=== PATIENT | female | born 1995 | race Caucasian/White ===

== ENCOUNTER 2017-11-17 01:55 | Outpatient (CLI) | payer MEDICAID ==
[2017-11-17 02:05] VITALS: BP 122/59
[2017-11-17 02:17] LABS: BILIRUBIN,URINE NEGATIVE (NEGATIVE); CLARITY,URINE CLEAR; COLOR,URINE YELLOW; GLUCOSE, URINE (UA) NEGATIVE (NEGATIVE); KETONES,URINE NEGATIVE (NEGATIVE); LEUKOCYTE ESTERASE ,URINE NEGATIVE (NEGATIVE); NITRITE,URINE NEGATIVE (NEGATIVE); PH,URINE 7 (5-9); PROTEIN,URINE NEGATIVE (NEGATIVE); UROBILINOGEN,URINE NORMAL (NORMAL)
[2017-11-17] MEDS ORDERED: ESCI5TAB PO (02:20)
[2017-11-17] MEDS ORDERED: MULT-228 PO (02:21)
[2017-11-17 02:32] LABS: BACTERIA,URINE NEGATIVE /HPF
[2017-11-17 02:43] LABS: AMPHETAMINE SCREEN, URINE NEGATIVE (NEGATIVE); BARBITURATE SCREEN URINE NEGATIVE (NEGATIVE); BENZODIAZEPINES SCREEN URINE NEGATIVE (NEGATIVE); CANNABINOID SCREEN, URINE POSITIVE (NEGATIVE); COCAINE SCREEN URINE NEGATIVE (NEGATIVE); METHADONE STAT NEGATIVE (NEGATIVE); METHAMPHETAMINE SCREEN URINE S NEGATIVE (NEGATIVE); OPIATE SCREEN URINE NEGATIVE (NEGATIVE); OXYCODONE STAT NEGATIVE (NEGATIVE); PROPOXYPHENE STAT NEGATIVE (NEGATIVE); TRICYCLIC ANTIDEPRESSANTS SCRE NEGATIVE (NEGATIVE)
--- NOTE | 2017-11-18 13:18 | Physician Query-Final Dx ---
BRIANNA OLIVIA 11/18/17 1317: Clinic Account Progress/Dx Physician Query: Please give a diagnosis and the weeks of gestation thank you Date of Service Nov 17, 2017 at 01:55 GIFTY KOVACS DO 12/08/17 1522: Clinic Account Progress/Dx DIAGNOSIS: Diagnosis 28 weeks contractions history of delivery BRIANNA OLIVIA Nov 18, 2017 13:17 GIFTY KOVACS DO Dec 08, 2017 15:22
== END 2017-11-17 03:10 ==
LOC: WSo 01:55 → LDRP 01:56 → WSo 03:10
PROVIDERS: ATTEND Obstetrics & Gynecology
DX: O60.03 Preterm labor without delivery, third trimester (principal); O09.213 Supervision of pregnancy with history of pre-term labor, third trimester; Z3A.28 28 weeks gestation of pregnancy
CPT/HCPCS: 80306; 81000; 99213

== ENCOUNTER 2017-12-01 20:17 | Outpatient (CLI) | payer MEDICAID ==
[~2017-12-01] VITALS: Ht 154.9 cm; Wt 58.9 kg
[~2017-12-01 20:17] MED LIST: ESCI5TAB PO; MULT-228 PO
[2017-12-01] MEDS ORDERED: D5 LR IV SOLUTION 1,000 ML IV ONE (20:45)
[2017-12-01 20:59] LABS: BASOPHILS % (AUTO) 0 % (0-10); EOSINOPHILS # (AUTO) 0.2 10^3/uL (0.0-0.3); EOSINOPHILS % (AUTO) 2 % (0-10); HEMATOCRIT 30 % (35-52); HEMOGLOBIN 10.7 G/DL (11.5-16.0); LYMPHOCYTES # (AUTO) 2.7 X 10^3 (1.0-4.0); LYMPHOCYTES % (AUTO) 23 % (12-44); MEAN CORPUSCULAR HEMOGLOBIN 31 PG (25-34); MEAN CORPUSCULAR HGB CONC 35 G/DL (32-36); MEAN CORPUSCULAR VOLUME 88 FL (80-99); MEAN PLATELET VOLUME 8.9 FL (7.4-10.4); MONOCYTES # (AUTO) 0.9 X 10^3 (0.0-1.0); MONOCYTES % (AUTO) 7 % (0-12); NEUTROPHILS # (AUTO) 8.3 X 10^3 (1.8-7.8); NEUTROPHILS % (AUTO) 68 % (42-75); PLATELET COUNT 307 10^3/uL (130-400); RED BLOOD COUNT 3.43 10^6/uL (4.35-5.85); RED CELL DISTRIBUTION WIDTH 13.3 % (10.0-14.5); WHITE BLOOD COUNT 12.1 10^3/uL (4.3-11.0)
[2017-12-01 21:00] VITALS: BP 117/54
[2017-12-01 21:15] LABS: BILIRUBIN,URINE NEGATIVE (NEGATIVE); CLARITY,URINE CLEAR; COLOR,URINE YELLOW; GLUCOSE, URINE (UA) NEGATIVE (NEGATIVE); KETONES,URINE NEGATIVE (NEGATIVE); LEUKOCYTE ESTERASE ,URINE NEGATIVE (NEGATIVE); NITRITE,URINE NEGATIVE (NEGATIVE); PH,URINE 7 (5-9); PROTEIN,URINE NEGATIVE (NEGATIVE); UROBILINOGEN,URINE NORMAL (NORMAL)
[2017-12-01 21:28] LABS: AMPHETAMINE SCREEN, URINE NEGATIVE (NEGATIVE); BARBITURATE SCREEN URINE NEGATIVE (NEGATIVE); BENZODIAZEPINES SCREEN URINE NEGATIVE (NEGATIVE); CANNABINOID SCREEN, URINE POSITIVE (NEGATIVE); COCAINE SCREEN URINE NEGATIVE (NEGATIVE); METHADONE STAT NEGATIVE (NEGATIVE); METHAMPHETAMINE SCREEN URINE S NEGATIVE (NEGATIVE); OPIATE SCREEN URINE NEGATIVE (NEGATIVE); OXYCODONE STAT NEGATIVE (NEGATIVE); PROPOXYPHENE STAT NEGATIVE (NEGATIVE); TRICYCLIC ANTIDEPRESSANTS SCRE NEGATIVE (NEGATIVE)
[2017-12-01 21:37] LABS: BACTERIA,URINE NEGATIVE /HPF
[2017-12-01] MEDS ORDERED: NITROFURANTOIN 100 MG (MACROBID) CAPSULE PO ONE ×2 (21:41→21:45)
--- NOTE | 2017-12-03 09:25 | Physician Query-Final Dx ---
BRIANNA OLIVIA 12/03/17 0925: Clinic Account Progress/Dx Physician Query: Please give a diagnosis and include the weeks of gestation thank you Date of Service Dec 01, 2017 at 20:17 DRE HENDRIX MD 12/03/17 1333: Clinic Account Progress/Dx DIAGNOSIS: Diagnosis False labor at 32 weeks gestation BRIANNA OLIVIA Dec 03, 2017 09:25 DRE HENDIRX MD Dec 03, 2017 13:33
== END 2017-12-01 22:40 | disposition home or self-care (01) ==
LOC: WSo 20:17 → LDRP 20:18 → WSo 22:40
PROVIDERS: ATTEND Obstetrics & Gynecology
DX: O47.03 False labor before 37 completed weeks of gestation, third trimester (principal); Z3A.32 32 weeks gestation of pregnancy
CPT/HCPCS: 36415; 80306; 81000; 85025; 87088; 96360; 96361; 99214

== ENCOUNTER 2017-12-17 16:17 | Outpatient (CLI) | payer MEDICAID ==
[~2017-12-17] VITALS: Ht 154.9 cm; Wt 59.0 kg
[2017-12-17 16:45] VITALS: BP 125/56
[2017-12-17 17:05] LABS: BILIRUBIN,URINE NEGATIVE (NEGATIVE); CLARITY,URINE CLEAR; COLOR,URINE YELLOW; GLUCOSE, URINE (UA) NEGATIVE (NEGATIVE); KETONES,URINE NEGATIVE (NEGATIVE); LEUKOCYTE ESTERASE ,URINE 1+ (NEGATIVE); NITRITE,URINE NEGATIVE (NEGATIVE); PH,URINE 7 (5-9); PROTEIN,URINE NEGATIVE (NEGATIVE); UROBILINOGEN,URINE NORMAL (NORMAL)
[2017-12-17 17:12] LABS: BACTERIA,URINE TRACE /HPF
[2017-12-17] MEDS ORDERED: D5 LR IV SOLUTION 1,000 ML IV ONE (17:15)
[2017-12-17 17:21] LABS: AMPHETAMINE SCREEN, URINE NEGATIVE (NEGATIVE); BARBITURATE SCREEN URINE NEGATIVE (NEGATIVE); BENZODIAZEPINES SCREEN URINE NEGATIVE (NEGATIVE); CANNABINOID SCREEN, URINE POSITIVE (NEGATIVE); COCAINE SCREEN URINE NEGATIVE (NEGATIVE); METHADONE STAT NEGATIVE (NEGATIVE); METHAMPHETAMINE SCREEN URINE S NEGATIVE (NEGATIVE); OPIATE SCREEN URINE NEGATIVE (NEGATIVE); OXYCODONE STAT NEGATIVE (NEGATIVE); PROPOXYPHENE STAT NEGATIVE (NEGATIVE); TRICYCLIC ANTIDEPRESSANTS SCRE NEGATIVE (NEGATIVE)
[2017-12-17 17:26] LABS: BASOPHILS % (AUTO) 0 % (0-10); EOSINOPHILS # (AUTO) 0.3 10^3/uL (0.0-0.3); EOSINOPHILS % (AUTO) 3 % (0-10); HEMATOCRIT 31 % (35-52); HEMOGLOBIN 10.6 G/DL (11.5-16.0); LYMPHOCYTES # (AUTO) 2.1 X 10^3 (1.0-4.0); LYMPHOCYTES % (AUTO) 21 % (12-44); MEAN CORPUSCULAR HEMOGLOBIN 29 PG (25-34); MEAN CORPUSCULAR HGB CONC 34 G/DL (32-36); MEAN CORPUSCULAR VOLUME 87 FL (80-99); MEAN PLATELET VOLUME 8.9 FL (7.4-10.4); MONOCYTES # (AUTO) 0.9 X 10^3 (0.0-1.0); MONOCYTES % (AUTO) 9 % (0-12); NEUTROPHILS # (AUTO) 6.9 X 10^3 (1.8-7.8); NEUTROPHILS % (AUTO) 68 % (42-75); PLATELET COUNT 310 10^3/uL (130-400); RED BLOOD COUNT 3.61 10^6/uL (4.35-5.85); RED CELL DISTRIBUTION WIDTH 13.6 % (10.0-14.5); WHITE BLOOD COUNT 10.2 10^3/uL (4.3-11.0)
[2017-12-17] MEDS ORDERED: FLU QUADRIvalent (5+ YOA) 2018-2019 (AFLURIA) 0.5 ML IM ONE (19:00)
[2017-12-17] MEDS ORDERED: HYDR250V7 IM (19:07)
== END 2017-12-17 19:18 | disposition home or self-care (01) ==
LOC: LDRP 16:17 → WSo 16:17
PROVIDERS: ATTEND Obstetrics & Gynecology
DX: O47.03 False labor before 37 completed weeks of gestation, third trimester (principal); O99.89 Other specified diseases and conditions complicating pregnancy, childbirth and the puerperium; R10.2 Pelvic and perineal pain; Z3A.33 33 weeks gestation of pregnancy
CPT/HCPCS: 36415; 80306; 81000; 85025; 87210; 96360; 96361; 99214

== ENCOUNTER 2017-12-31 23:35 | Outpatient (CLI) | payer MEDICAID ==
[~2017-12-31] VITALS: Ht 154.9 cm; Wt 59.9 kg
[~2017-12-31 23:35] MED LIST changes: +HYDR250V7 IM
[2017-12-31 23:55] VITALS: BP 111/59
--- NOTE | 2018-01-04 17:00 | Physician Query-Final Dx ---
[facility] 01/04/18 1700: Clinic Account Progress/Dx Physician Query: Please give diagnosis Date of Service Dec 31, 2017 at 23:35 GIFTY KOVACS DO 01/18/18 1406: Clinic Account Progress/Dx DIAGNOSIS: Diagnosis Left knee injury, fall at home third trimester [facility] Jan 04, 2018 17:00 GIFTY KOVACS DO Jan 18, 2018 14:06
[2018-01-08] MEDS ORDERED: DOCU100C37 PO (21:39)
[2018-01-08] MEDS ORDERED: IBUP-844 PO (21:39)
[2018-01-08] MEDS ORDERED: ACHD5005 PO (21:39)
== END 2018-01-01 00:40 | disposition home or self-care (01) ==
LOC: WSo 23:35 → LDRP 23:36 → WSo 01-01 00:40
PROVIDERS: ATTEND Obstetrics & Gynecology
DX: O9A.213 Injury, poisoning and certain other consequences of external causes complicating pregnancy, third trimester (principal); S89.92XA Unspecified injury of left lower leg, initial encounter; W19.XXXA Unspecified fall, initial encounter
CPT/HCPCS: 99212

== ENCOUNTER 2018-01-01 00:47 | Emergency (ER) | payer MEDICAID ==
[~2018-01-01] VITALS: Ht 154.9 cm; Wt 59.9 kg
--- NOTE | 2018-01-01 01:36 | ED Lower Extremity ---
General Chief Complaint: Lower Extremity Stated Complaint: LEFT KNEE INJURY-FALL/PT 8 MONTHS PREG Nursing Triage Note: left knee pain Nursing Sepsis Screen: No Definite Risk Source: patient History of Present Illness Date Seen by Provider: Jan 01, 2018 Time Seen by Provider: 01:10 Initial Comments PT ARRIVES VIA POV C/O LEFT KNEE PAIN STATES SHE STEPPED DOWN AND LOST HER BALANCE AND CAME DOWN ON HER LEFT KNEE, ONTO CONCRETE OCCURRED 12/30/17 PT DENIES ANY OTHER INJURIES OR AREAS OF PAIN NO PRIOR INJURY TO THIS KNEE NO PARESTHESIAS OR MOTOR DEFICITS HAS NOT TAKEN ANYTHING FOR PAIN STATES SHE "CAN'T WALK OR PUT ANY WEIGHT ON IT AND CAN'T STRAIGHTEN IT" PT STATES SHE IS " 8 MONTHS " ALSO STATES SHE IS "33 WEEKS" BUT GIVES EDC OF 01/15/18, DENIES ANY ABDOMINAL INJURY PT HAS ALREADY BEEN TO OB DEPT AND BABY IS FINE, ACCORDING TO PT. 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 KOVACS PT STATES SHE "JUST MOVED HERE FROM [place], [place]" Allergies and Home Medications Allergies Coded Allergies: No Known Drug Allergies (Unverified , 11/17/17) Home Medications Escitalopram Oxalate 5 Mg Tablet, 5 MG PO DAILY, (Reported) Multivitamin 1 Each Tab.chew, 2 EACH PO DAILY, (Reported) Patient Home Medication List Home Medication List Reviewed: Yes Review of Systems Constitutional: no symptoms reported Respiratory: no symptoms reported Cardiovascular: no symptoms reported Gastrointestinal: no symptoms reported Genitourinary: no symptoms reported : Yes Musculoskeletal: see HPI Skin: no symptoms reported Psychiatric/Neurological: No Symptoms Reported Past Xoyxukc-Sdgrzq-Aomlip Hx Patient Social History Alcohol Use: Past History Recreational Drug Use: No Smoking Status: Current Everyday Smoker (1/2 PPD) Type Used: Cigarettes (1/2 PPD) 2nd Hand Smoke Exposure: Yes Recent Foreign Travel: No Contact w/Someone Who Travel: No Recent Infectious Disease Expo: No Recent Hopitalizations: No Immunizations Up To Date Tetanus Booster (TDap): Unknown Seasonal Allergies Seasonal Allergies: Yes Past Medical History Surgeries: Yes Section Respiratory: Yes Asthma Cardiac: No Neurological: Yes Seizure Disorder : Yes Expected Date of Delivery: Jan 15, 2018 Genitourinary: No Gastrointestinal: No Musculoskeletal: No Endocrine: No HEENT: No Cancer: No Psychosocial: Yes Anxiety, PTSD, Bipolar, Depression Integumentary: No Blood Disorders: Yes (ANEMIA) Physical Exam Vital Signs Vital Signs - First Documented 01/01/18 01:05 Temp 98.1 Pulse 77 Resp 16 B/P (MAP) 96/60 (72) Pulse Ox 97 O2 Delivery Room Air Capillary Refill : Less Than 3 Seconds Height, Weight, BMI Height: 5'1.00" Weight: 132lbs. 0.0oz. [id number]; 24.9 BMI Method:Stated General Appearance: WD/WN, no apparent distress, other (REEKS OF CIGARETTES, MALODOROUS) Neck: non-tender Cardiovascular: normal peripheral pulses, regular rate, rhythm, no edema, no murmur Respiratory: chest non-tender, normal breath sounds Gastrointestinal: non tender, other (GRAVID UTERUS) Back: normal inspection, no CVA tenderness, no vertebral tenderness Hips: bilateral hip non-tender, bilateral hip normal inspection, bilateral hip normal range of motion, bilateral hip no evidence of injury Legs: bilateral leg non-tender, bilateral leg normal inspection, bilateral leg normal range of motion, bilateral leg no evidence of injury Knees: right knee non-tender, right knee normal inspection, right knee normal range of motion, right knee no evidence of injury; left knee other (NO EXTERNAL EVIDENCE OF TRAUMA, NO SWELLING OR ERYTHEMA OR ABRASIONS, DIFFUSE TENDERNESS TO ANTERIOR ASPECT OF LEFT KNEE. UNABLE TO ASSESS LIGAMENT LAXITY DUE TO PAIN . MARKEDLY EXAGGERATED PAIN RESPONSE--DIFFUSE TENDERNESS TO ENTIRE KNEE. ) Ankles: bilateral ankle non-tender, bilateral ankle normal inspection, bilateral ankle normal range of motion, bilateral ankle no evidence of injury Feet: bilateral foot non-tender, bilateral foot normal inspection, bilateral foot normal range of motion, bilateral foot no evidence of injury Neurologic/Tendon: normal sensation, normal motor functions, normal tendon functions Neurologic/Psychiatric: controller repairer and tester II-XII nml as tested, no motor/sensory deficits, alert, normal mood/affect, oriented x 3 Skin: normal color, warm/dry, tattoos/piercings Procedures/Interventions Splinting and Joint Reduction : Oseas wrap: Yes Immobilizers: 19 inch Knee Progress/Results/Core Measures Results/Orders My Orders Orders - KAROLINE MALONEY DO Knee, Left, 3 Views (01/01/18 01:12) Oseas Bandage (01/01/18 01:45) Knee Immobilizer (01/01/18 01:45) Vital Signs/I&O 01/01/18 01:05 Temp 98.1 Pulse 77 Resp 16 B/P (MAP) 96/60 (72) Pulse Ox 97 O2 Delivery Room Air Blood Pressure Mean: 72 Diagnostic Imaging Comments XRAYS LEFT KNEE--NO ACUTE PROCESS, PENDING RADIOLOGIST REVIEW Reviewed: Reviewed by Me Departure Impression Primary Impression: Status post fall Additional Impressions: Contusion of left knee Third trimester Disposition: HOME, SELF-CARE Condition: Stable Departure-Patient Inst. Referrals: GIFTY KOVACS DO (PCP/Family) Primary Care Physician Patient Instructions: Contusion (DC), Knee Immobilizer (DC), Knee Sprain (DC), Preventing Falls Add. Discharge Instructions: OSEAS WRAP AND KNEE IMMOBILIZER NEEDED FOR COMFORT ICE TO AREA AT 20 MINUTE INTERVALS ELEVATE LEG MUCH POSSIBLE TYLENOL NEEDED FOR PAIN FOLLOW UP WITH YOUR DR IN 1 WEEK IF NO BETTER All discharge instructions reviewed with patient and/or family. Voiced understanding. KAROLINE MALONEY DO Jan 01, 2018 01:36
[2018-01-01 02:15] VITALS: BP 96/60
--- NOTE | 2018-01-01 06:17 | Diagnostic Imaging Report ---
Indication: Fall with left knee pain. Comparison: None. Discussion: Three views of the left knee were obtained. No acute fracture, dislocation, or other osseous abnormality identified. No significant degenerative disease. Alignment is anatomic. Soft tissues are unremarkable. No effusion. Impression: 1. Negative left knee. Dictated by: Dictated on workstation # [id number]
== END 2018-01-01 02:17 | disposition home or self-care (01) ==
LOC: EDUNIT# 00:47 → ER 00:49
DX: O9A.213 Injury, poisoning and certain other consequences of external causes complicating pregnancy, third trimester (principal); S80.02XA Contusion of left knee, initial encounter; O99.513 Diseases of the respiratory system complicating pregnancy, third trimester; J45.909 Unspecified asthma, uncomplicated; O99.353 Diseases of the nervous system complicating pregnancy, third trimester; G40.909 Epilepsy, unspecified, not intractable, without status epilepticus; O99.343 Other mental disorders complicating pregnancy, third trimester; F41.9 Anxiety disorder, unspecified; F31.9 Bipolar disorder, unspecified; F43.10 Post-traumatic stress disorder, unspecified; O99.013 Anemia complicating pregnancy, third trimester; D64.9 Anemia, unspecified; O99.333 Smoking (tobacco) complicating pregnancy, third trimester; F17.210 Nicotine dependence, cigarettes, uncomplicated; Z98.890 Other specified postprocedural states; W10.9XXA Fall (on) (from) unspecified stairs and steps, initial encounter
CPT/HCPCS: 73562

== ENCOUNTER 2018-01-05 01:45 | Emergency (ER) | payer MEDICAID ==
[~2018-01-05] VITALS: Ht 154.9 cm; Wt 59.9 kg
--- NOTE | 2018-01-05 02:26 | ED Lower Extremity ---
General Chief Complaint: Lower Extremity Stated Complaint: L LEG SWELLING Source: patient, family Exam Limitations: no limitations History of Present Illness Date Seen by Provider: Jan 05, 2018 Time Seen by Provider: 02:11 Initial Comments Patient presents to the ER by private conveyance with her significant other and mother and chief complaint that 6 days ago she had a fall presented to the ER 5 days ago had x-rays done that demonstrated there is no fracture but they thought she had a sprain of her knee so put her on crutches and a knee immobilizer for a week in follow-up on the first, tomorrow with Dr. Kovacs her OB doctor. Her EDC is the end of January putting her at about 36 weeks. She claims she's had pain and swelling in her knee and had a small fall yesterday and reinjury of the same knee. She's never had any injury or surgery to this knee before. She claims she's had swelling upwards of 3 times the size just 2 hours prior to arrival. She's having excruciating pain. She's used Tylenol with her last dose being at 1700 yesterday. She's not using any topical creams, ice or heat. Allergies and Home Medications Allergies Coded Allergies: No Known Drug Allergies (Unverified , 11/17/17) Home Medications Escitalopram Oxalate 5 Mg Tablet, 5 MG PO DAILY, (Reported) Multivitamin 1 Each Tab.chew, 2 EACH PO DAILY, (Reported) Patient Home Medication List Home Medication List Reviewed: Yes Review of Systems Constitutional: No chills, No diaphoresis EENTM: No hearing loss, No ear pain Respiratory: No cough, No short of breath Cardiovascular: No chest pain, No palpitations Gastrointestinal: No abdominal pain, No constipation, No diarrhea Past Sfbgrsd-Hwcmob-Cnjllb Hx Patient Social History Alcohol Use: Denies Use Recreational Drug Use: No Type Used: Cigarettes 2nd Hand Smoke Exposure: Yes Recent Foreign Travel: No Contact w/Someone Who Travel: No Recent Hopitalizations: No Immunizations Up To Date Tetanus Booster (TDap): Unknown Seasonal Allergies Seasonal Allergies: Yes Past Medical History Surgeries: Yes Section Respiratory: Yes Asthma Cardiac: No Neurological: Yes Seizure Disorder Genitourinary: No Gastrointestinal: No Musculoskeletal: No Endocrine: No HEENT: No Cancer: No Psychosocial: Yes Anxiety, PTSD, Bipolar, Depression Integumentary: No Blood Disorders: Yes (ANEMIA) Physical Exam Vital Signs Vital Signs - First Documented 01/05/18 02:04 Temp 98.2 Pulse 99 Resp 17 B/P (MAP) 111/58 (75) Capillary Refill : Height, Weight, BMI Height: 5'1.00" Weight: 132lbs. 0.0oz. 59.279178au; 24.9 BMI Method:Stated General Appearance: WD/WN, no apparent distress HEENT: PERRL/EOMI, pharynx normal Neck: non-tender, normal inspection Cardiovascular: normal peripheral pulses, regular rate, rhythm Respiratory: no respiratory distress, no accessory muscle use Legs: bilateral leg non-tender, bilateral leg normal inspection, bilateral leg normal range of motion, bilateral leg no evidence of injury Knees: right knee non-tender; bilateral knee normal inspection; right knee normal range of motion, right knee no evidence of injury; left knee bone tenderness (anterior knee And tibial plateau or tender to palpation.), left knee swelling (scant swelling seen around the left knee without any significant joint effusion palpable) Ankles: bilateral ankle non-tender, bilateral ankle normal inspection, bilateral ankle normal range of motion, bilateral ankle no evidence of injury Neurologic/Tendon: normal sensation, normal motor functions, normal tendon functions, responds to pain Neurologic/Psychiatric: alert, normal mood/affect, oriented x 3 Skin: normal color, warm/dry Progress/Results/Core Measures Results/Orders My Orders Orders - LETTY HELM Acetaminophen Tablet (Tylenol Tablet) (01/05/18 02:30) Vital Signs/I&O 01/05/18 02:04 Temp 98.2 Pulse 99 Resp 17 B/P (MAP) 111/58 (75) Progress Progress Note : Time: 02:24 Progress Note Don't appreciate significant edema in either knee or leg. No effusion. She's having quite exquisite tenderness to palpation so a proper knee exam is difficult to do. We are going to refer her to orthopedic surgery for a clinical examination and about 1-2 weeks. Encourage her to use ice, rice therapy, Tylenol and follow-up. Departure Impression Primary Impression: Sprain of left knee Qualified Codes: S83.92XA - Sprain of unspecified site of left knee, initial encounter Disposition: 01 HOME, SELF-CARE Condition: Stable Departure-Patient Inst. Decision time for Depature: 02:30 Referrals: GIFTY KOVACS DO (PCP/Family) Primary Care Physician FRANCE LUZ MD Patient Instructions: Knee Sprain (DC) Add. Discharge Instructions: Rest your knee when possible above the level of your heart, elevated and use a compression dressing such as Oseas bandage, neoprene sleeve or the knee immobilizer for the first week. Apply ice for 20 minutes every 4 hours for the first 4 days. You can also use heat and creams such as icy hot or Biofreeze. Tylenol 1000 mg every 8 hours as needed for pain. Follow-up with your PATIENT REGISTRATION REPRESENTATIVE as well as call Drs. Luz at his clinic and request an appointment in 1 week or reevaluation of your knee. All discharge instructions reviewed with patient and/or family. Voiced understanding. Copy Copies To 1: FRANCE LUZ MD, TITUS J Jan 05, 2018 02:25
[2018-01-05] MEDS ORDERED: ACETAMINOPHEN 500 MG TAB (TYLENOL) PO ONE (02:30)
[2018-01-05 02:38] VITALS: BP 111/58
[2018-01-08] MEDS ORDERED: DOCU100C37 PO (21:39)
[2018-01-08] MEDS ORDERED: ACHD5005 PO (21:39)
[2018-01-08] MEDS ORDERED: IBUP-844 PO (21:39)
== END 2018-01-05 02:39 | disposition home or self-care (01) ==
LOC: EDUNIT# 01:45 → ER 01:47
DX: S83.92XA Sprain of unspecified site of left knee, initial encounter (principal); J45.909 Unspecified asthma, uncomplicated; G40.909 Epilepsy, unspecified, not intractable, without status epilepticus; F41.9 Anxiety disorder, unspecified; F31.9 Bipolar disorder, unspecified; F43.10 Post-traumatic stress disorder, unspecified; D64.9 Anemia, unspecified; Z77.22 Contact with and (suspected) exposure to environmental tobacco smoke (acute) (chronic); Z98.890 Other specified postprocedural states; W19.XXXA Unspecified fall, initial encounter
CPT/HCPCS: 99283

== ENCOUNTER 2018-01-08 02:37 | Inpatient (IN) | payer MEDICAID ==
[~2018-01-08] VITALS: Ht 154.9 cm; Wt 59.9 kg
[2018-01-08] VITALS (8 sets, daily range): BP systolic 101–127; BP diastolic 55–75
[2018-01-08] MEDS ORDERED: NS IV 1000 ML 1,000 ML ONE ×2 (02:52→05:14)
[2018-01-08] MEDS ORDERED: NS 1000 ML IV BAG IV ONE (03:00)
[2018-01-08 03:21] LABS: BASOPHILS % (AUTO) 0 % (0-10); EOSINOPHILS # (AUTO) 0.2 10^3/uL (0.0-0.3); EOSINOPHILS % (AUTO) 1 % (0-10); HEMATOCRIT 33 % (35-52); HEMOGLOBIN 11.1 G/DL (11.5-16.0); LYMPHOCYTES # (AUTO) 2.6 X 10^3 (1.0-4.0); LYMPHOCYTES % (AUTO) 19 % (12-44); MEAN CORPUSCULAR HEMOGLOBIN 29 PG (25-34); MEAN CORPUSCULAR HGB CONC 34 G/DL (32-36); MEAN CORPUSCULAR VOLUME 88 FL (80-99); MEAN PLATELET VOLUME 9.1 FL (7.4-10.4); MONOCYTES # (AUTO) 0.9 X 10^3 (0.0-1.0); MONOCYTES % (AUTO) 7 % (0-12); NEUTROPHILS # (AUTO) 9.9 X 10^3 (1.8-7.8); NEUTROPHILS % (AUTO) 73 % (42-75); PLATELET COUNT 293 10^3/uL (130-400); RED BLOOD COUNT 3.77 10^6/uL (4.35-5.85); RED CELL DISTRIBUTION WIDTH 14.9 % (10.0-14.5); WHITE BLOOD COUNT 13.6 10^3/uL (4.3-11.0)
[2018-01-08 03:57] LABS: BILIRUBIN,URINE NEGATIVE (NEGATIVE); CLARITY,URINE CLEAR; COLOR,URINE YELLOW; GLUCOSE, URINE (UA) NEGATIVE (NEGATIVE); KETONES,URINE NEGATIVE (NEGATIVE); LEUKOCYTE ESTERASE ,URINE 1+ (NEGATIVE); NITRITE,URINE NEGATIVE (NEGATIVE); PH,URINE 7 (5-9); PROTEIN,URINE NEGATIVE (NEGATIVE); UROBILINOGEN,URINE NORMAL (NORMAL)
[2018-01-08 04:05] LABS: BACTERIA,URINE TRACE /HPF; RBC,URINE 0-2 /HPF; WBC,URINE 0-2 /HPF
[2018-01-08 04:23] LABS: AMPHETAMINE SCREEN, URINE NEGATIVE (NEGATIVE); BARBITURATE SCREEN URINE NEGATIVE (NEGATIVE); BENZODIAZEPINES SCREEN URINE NEGATIVE (NEGATIVE); CANNABINOID SCREEN, URINE NEGATIVE (NEGATIVE); COCAINE SCREEN URINE NEGATIVE (NEGATIVE); METHADONE STAT NEGATIVE (NEGATIVE); METHAMPHETAMINE SCREEN URINE S NEGATIVE (NEGATIVE); OPIATE SCREEN URINE NEGATIVE (NEGATIVE); OXYCODONE STAT NEGATIVE (NEGATIVE); PROPOXYPHENE STAT NEGATIVE (NEGATIVE); TRICYCLIC ANTIDEPRESSANTS SCRE NEGATIVE (NEGATIVE)
[2018-01-08] MEDS ORDERED: FLU QUADRIvalent (5+ YOA) 2018-2019 (AFLURIA) 0.5 ML IM ONE (07:15)
[2018-01-08] MEDS ORDERED: LACTATED RINGERS 1,000 ML IV ONE ×2 (07:36→07:39)
[2018-01-08] MEDS ORDERED: CITRIC ACID/SOB CIT (BICITRA) 30 ML UDC ONE (07:38)
[2018-01-08] MEDS ORDERED: METOCLOPRAMIDE INJ 10 MG/2 ML (REGLAN) ONE (07:38)
[2018-01-08] MEDS ORDERED: ceFAZolin 1,000 MG/10 ML (ANCEF) VIAL ONE (07:39)
[2018-01-08] MEDS ORDERED: FAMOTIDINE 20MG/2ML IV (PEPCID) ONE (07:39)
[2018-01-08] MEDS ORDERED: NS (IVPB) 50 ML ONE (07:39)
--- NOTE | 2018-01-08 08:05 | History & Physical-OB ---
OB - Chief Complaint & HPI Date/Time Date of Admission: Date of Admission: Jan 08, 2018 at 7:48 am Date seen by a Provider: Jan 08, 2018 Time Seen by a Provider: 07:45 Chief Complaint/History OB-Reason for Admission/Chief: Vaginal bleeding, suspected abruption Hx : 3 Hx Para: 2 Expected Date of Delivery: Feb 03, 2018 Gestational Age in Weeks: 36 Gestational Age in Days: 2 Indication for : desires repeat Other reason for admission: Patient admitted for obs last night to R/O labor, however was not making change was jerel q 3-5 min so she was kept for observation. At 735 I was notifed she had began bleeding significantly from the vagina, on arrival to the hospital she was noted to have a contraction pattern q 1-2 min suspicious for an abruption, and in a significant amount of pain. No cervical change noted. Admission Nurse Assessment Rev: Yes History of Labs A neg Antibody neg RI RPR NR HBsAg nR HIV NR GC neg GBS pos Allergies and Home Medications Allergies Coded Allergies: No Known Drug Allergies (Unverified , 11/17/17) Home Medications Escitalopram Oxalate 5 Mg Tablet, 5 MG PO DAILY, (Reported) Multivitamin 1 Each Tab.chew, 2 EACH PO DAILY, (Reported) Patient Home Medication List Home Medication List Reviewed: Yes OB - History Hx of Present Care: Yes Ultrasounds: Normal mid trimester US Obstetrical Complications: None, Other (history of labor was on [place]) Medical Complications: None Obstetrical History Hx : 3 Hx Para: 2 Patient Past Medical History Anxiety/depression Social History/Family History Recent Infectious Disease Expo: No 2nd Hand Smoke Exposure: Yes Immunizations Tetanus Booster (TDap): Unknown OB - Admission Exam Physical Exam Vitals: Vital Signs 01/08/18 05:00 Temp 97.3 Pulse 72 Resp 18 B/P (MAP) 102/55 (71) O2 Delivery Room Air HEENT: NCAT Heart: Rhythm Normal Lungs: Clear Abdomen: Gravid Extremities: Normal Reflexes: Normal Cervical Dilatation: 2cm (s) Effacement: 50% Station: -2 Membranes: Intact (bleeding noted on vaginal exam) Heart Rate: 120's Accelerations: Accelerations Present Decelerations: No Decelerations Short Term Variability: Present Contractions on Admission: < 5 Minutes Apart Intensity: Firm Labs Laboratory Tests Test 01/08/18 03:10 01/08/18 03:50 Range/Units White Blood Count 13.6 H 4.3-11.0 10^3/uL Red Blood Count 3.77 L 4.35-5.85 10^6/uL Hemoglobin 11.1 L 11.5-16.0 G/DL Hematocrit 33 L 35-52 % Mean Corpuscular Volume 88 80-99 FL Mean Corpuscular Hemoglobin 29 25-34 PG Mean Corpuscular Hemoglobin Concent 34 32-36 G/DL Red Cell Distribution Width 14.9 H 10.0-14.5 % Platelet Count 293 130-400 10^3/uL Mean Platelet Volume 9.1 7.4-10.4 FL Neutrophils (%) (Auto) 73 42-75 % Lymphocytes (%) (Auto) 19 12-44 % Monocytes (%) (Auto) 7 0-12 % Eosinophils (%) (Auto) 1 0-10 % Basophils (%) (Auto) 0 0-10 % Neutrophils # (Auto) 9.9 H 1.8-7.8 X 10^3 Lymphocytes # (Auto) 2.6 1.0-4.0 X 10^3 Monocytes # (Auto) 0.9 0.0-1.0 X 10^3 Eosinophils # (Auto) 0.2 0.0-0.3 10^3/uL Basophils # (Auto) 0.0 0.0-0.1 10^3/uL Urine Color YELLOW Urine Clarity CLEAR Urine pH 7 5-9 Urine Specific [place] 1.010 L 1.016-1.022 Urine Protein NEGATIVE NEGATIVE Urine Glucose (UA) NEGATIVE NEGATIVE Urine Ketones NEGATIVE NEGATIVE Urine Nitrite NEGATIVE NEGATIVE Urine Bilirubin NEGATIVE NEGATIVE Urine Urobilinogen NORMAL NORMAL MG/DL Urine Leukocyte Esterase 1+ H NEGATIVE Urine RBC (Auto) 2+ H NEGATIVE Urine RBC 0-2 /HPF Urine WBC 0-2 /HPF Urine Squamous Epithelial Cells 5-10 /HPF Urine Crystals NONE /LPF Urine Bacteria TRACE /HPF Urine Casts NONE /LPF Urine Mucus NEGATIVE /LPF Urine Culture Indicated NO Urine Opiates Screen NEGATIVE NEGATIVE Urine Oxycodone Screen NEGATIVE NEGATIVE Urine Methadone Screen NEGATIVE NEGATIVE Urine Propoxyphene Screen NEGATIVE NEGATIVE Urine Barbiturates Screen NEGATIVE NEGATIVE Ur Tricyclic Antidepressants Screen NEGATIVE NEGATIVE Urine Phencyclidine Screen NEGATIVE NEGATIVE Urine Amphetamines Screen NEGATIVE NEGATIVE Urine Methamphetamines Screen NEGATIVE NEGATIVE Urine Benzodiazepines Screen NEGATIVE NEGATIVE Urine Cocaine Screen NEGATIVE NEGATIVE Urine Cannabinoids Screen NEGATIVE NEGATIVE OB - Assessment/Plan/Diagnosis Assessment Assessment: labor Admission Dx 22 yo @ 36 weeks labor Placental abruption with vaginal hemorrhage Previous x 2 Family history of ovarian ca History of labor Admission Status: Inpatient Order (span 2 midnights) Reason for Inpatient Admission: 22 yo @ 36 weeks labor Placental abruption with vaginal hemorrhage Previous x 2 Family history of ovarian ca History of labor Plan Plan: Section Other Plan RRS FRANCE LANE DO Jan 08, 2018 8:05 am
[2018-01-08] MEDS ORDERED: OXYTOCIN/NORMAL SALINE 500 ML IV SCH (08:06)
[2018-01-08] MEDS ORDERED: proPOfol 200 MG/20 ML (DIPRIVAN) VIAL IV ONE ×2 (08:07→08:32)
[2018-01-08] MEDS ORDERED: HYDROmorphone 2 MG/ML VIAL (DILAUDID) IV PRN (08:15)
[2018-01-08] MEDS ORDERED: ONDANSETRON 4 MG/2 ML (SDV) Z0FRAN IVP PRN ×2 (08:15→08:45)
[2018-01-08] MEDS ORDERED: TETANUS,DIPTH,PERTUSS P/F (BOOSTRIX) 0.5 ML VIAL IM SCH (08:15)
[2018-01-08] MEDS ORDERED: fentaNYL INJECTION 100 MCG/2 ML AMP ONE (08:18)
[2018-01-08] MEDS ORDERED: MIDAZOLAM 2 MG/2 ML (VERSED) VIAL ONE (08:19)
[2018-01-08] MEDS ORDERED: ONDANSETRON 4 MG/2 ML (SDV) Z0FRAN ONE (08:32)
[2018-01-08] MEDS ORDERED: METHYLERGONOVINE 0.2 MG/ML (METHERGINE) AMP ONE (08:32)
[2018-01-08] MEDS ORDERED: SUCCINYLCHOLINE INJ 100 MG/5 ML SYR ONE (08:32)
[2018-01-08] MEDS ORDERED: SEVOFLURANE (ULTANE) 15 ML INHAL SOLN ONE (08:32)
[2018-01-08] MEDS ORDERED: OXYTOCIN/NORMAL SALINE 500 ML IV ONE (08:33)
[2018-01-08] MEDS ORDERED: LIDOCAINE PF 2% 5 ML (XYLOCAINE) VIAL ONE (08:33)
[2018-01-08] MEDS ORDERED: HYDROmorphone 2 MG/ML VIAL (DILAUDID) IV ONE (08:45)
[2018-01-08] MEDS ORDERED: morphine INJ 10 MG/ML 1ML (SYR OR VIAL) IVP ONE (08:45)
[2018-01-08] MEDS ORDERED: MEPERIDINE (DEMEROL) INJ 50 MG/ML IVP ONE (08:45)
[2018-01-08] MEDS: KETOROLAC 30 MG/ML VIAL IVP SCH ×2 (09:19→15:24)
[2018-01-08] MEDS: HYDROcodone/APAP 5 MG/325 MG (LORTAB) TAB PO PRN (11:51)
[2018-01-08] MEDS ORDERED: CATHETER FLUSH 10 ML SYR IV SCH (14:00)
[2018-01-08] MEDS ORDERED: NS 1000 ML IV BAG IV SCH (14:00)
--- NOTE | 2018-01-08 17:11 | OPERATIVE REPORT ---
DATE OF SERVICE: 01/08/2018 PREOPERATIVE DIAGNOSES: 1. A 22-year-old G3, P2 at 36 weeks' gestation. 2. Profuse vaginal bleeding with placental abruption. 3. History of section. POSTOPERATIVE DIAGNOSES: 1. A 22-year-old G3, P2 at 36 weeks' gestation. 2. Profuse vaginal bleeding with placental abruption. 3. History of section. PROCEDURE PERFORMED: Repeat low transverse section with bilateral salpingectomy. SURGEON: Dylan Lane DO. ANESTHESIA: General. ESTIMATED BLOOD LOSS: 500 mL. URINE OUTPUT: 100 mL clear at the end of the procedure. FLUIDS: 1300 mL lactated Ringer solution. FINDINGS: A live male infant, weighing 5 pounds 11 ounces, Apgars of 8, 8 and 9. Grossly normal appearing uterus, bilateral fallopian tubes and ovaries. INDICATIONS FOR PROCEDURE: This is a 22-year-old female who was admitted overnight with some irregular contractions. She had a history of labor and delivery at 35 weeks with the previous . She received [place] throughout this inside her care with Dr. Greene, my partner. She had not gotten her last [place] injection last week at 35 weeks and had her GBS done, which was found to be positive. At that point, she was found to be 1-2 cm dilated. At her admission presentation, she was found to be 2 cm dilated; however, thick and high. The cervix was then reevaluated an hour and a half later which showed no change; however, she did continue to contract a little bit every 6-10 minutes, so she was admitted for observation. About 3-4 hours after observation was noted, she started bleeding vaginally and jerel pattern started to look like that of abruption pattern every 1-2 minutes. There was no resting tone noted in between contractions. At that point, I called for a stat . Risks were briefly reviewed with the patient in the preoperative area. Consent was obtained. The patient was taken to the operating room. We had planned to proceed with risk reducing salpingectomy as planned in her preoperative and care visits. Once in the operating room, the patient was placed on the table, prepped and draped in normal sterile fashion, placed in supine position with a leftward tilt. Timeout was performed, anesthesia was administered. Once I have the okay to begin by from Anesthesia, I made a Pfannenstiel skin incision to the preexisting scar using knife and carried down to the layer of fascia using Bovie cautery. Super aspect of the fascial incision was then grasped with Miguel Angel clamps and dissected off the underlying rectus muscle. Inferior aspect of fascial incision was then grasped with Miguel Angel clamps and dissected upward, dissected off the underlying rectus muscles. Rectus muscles were then extended superiorly and inferiorly using blunt traction. The peritoneum was entered and extended using blunt traction. Fuentes ring retractor was placed in the peritoneal incision, which offered excellent lateral sidewall retraction and then proceeded with making a low transverse incision into the vesicouterine peritoneum and bluntly dissected off the lower uterine segment. The lower uterine segment was found to be thinned out and I made an incision through this and rupture of membranes was performed in this motion. The uterine incision was then extended superiorly and laterally using bandage scissors. The was found in the vertex presentation. With gentle fundal pressure, 's head was delivered up to the incision and was bulb suctioned both nares and oropharynx. Anterior and posterior shoulder was delivered. Infant was then brought out to the operative field where the cord was doubly clamped and cut and was handed off to the nurses in attendance. Cord blood was collected, 3-vessel cord with intact placenta was delivered spontaneously. Thereafter, IV Pitocin was initiated to facilitate uterine contraction. Uterine fundus remains boggy with bimanual massage and 0.2 mg of Methergine was administered by my order from Anesthesia, which shows a good result in uterine tone. I then closed the uterine incision using #0 Vicryl suture in a running locked fashion, second layer of imbricating #0 Monocryl was placed. Excellent hemostasis was noted after doing this. I then placed the uterus in the upright position, so I can address the fallopian tubes and performed the following dissection bilaterally. Using the monopolar cautery, I transected the isthmic portion of the fallopian tube and take this down the mesosalpinx laterally amputating the fallopian tube away from its surrounding blood supply. It is amputated from the distal ampullary portion of the connection of the mesosalpinx. Once this was done bilaterally, there was no active bleeding noted from either one of those dissection planes. I placed the uterus back into the pelvis and copiously irrigated the pelvis using normal saline. No active bleeding noted from any of my dissection planes. At that point, I placed Interceed antiadhesive over a low transverse incision. The peritoneum was denuded, so I am unable to reapproximate it, so I reapproximated the rectus muscles using 3-0 Vicryl suture in interrupted fashion. The fascia was reapproximated using #0 Vicryl suture in running fashion. Subcutaneous tissue was reapproximated using 3-0 plain interrupted subcutaneous stitches. Skin was reapproximated using 4-0 Monocryl running subcuticular. Dermabond was applied to incision. A sterile dressing was adhesed with white tape. The patient tolerated the procedure well and sent to recovery in stable condition. Lap and sponge count was correct at the end of the procedure. Instrument count was correct as well. One gram of Ancef given preoperatively for infection prophylaxis. Job ID: [id number] DocumentID: [id number] Dictated Date: 01/08/2018 09:18:30 Director Project Management Date: 01/08/2018 17:10:59 Dictated By: DYLAN LANE DO
[2018-01-08] MEDS ORDERED: IBUPROFEN 600 MG (MOTRIN) TAB PO ONE (21:04)
--- NOTE | 2018-01-08 21:37 | Discharge Inst-Women's Service ---
Discharge Inst-Women's Serv Depart Medication/Instructions New, Converted or Re-Newed RX: RX on Chart Consults/Follow Up Additional Follow Up: Yes Orders/Referrals Dr. Upton in 7-[address] Greene in 6 weeks Activity Activity: Activity as Tolerated Driving Instructions: No Driving for 1 Week NO SMOKING: NO SMOKING Nothing Inside Vagina: No Douching, No Stollings, No Tampons Diet Discharge Diet: No Restrictions Symptoms to Report to : Bleeding Excessive, Pain Increased, Fever Over 101 Degrees F, Vaginal Bleeding Increase, Questions/Concerns For Any Problems or Questions: Contact Your Physician Skin/Wound Care Infection Signs and Symptoms: Increased Redness, Foul Odor of Wound, Increased Drainage, Skin Itchy or Has a Rash, Increased Swelling, Temperature Above 101 F Operative Area Clean and Dry: Keep Incision Clean/Dry Stitches/[place]/Dermabond: Dermabond, Care of Stitches Bathing Instructions: FRANCE Roman DO Jan 08, 2018 9:37 pm
[2018-01-08] MEDS ORDERED: DOCU100C37 PO (21:39)
[2018-01-08] MEDS ORDERED: ACHD5005 PO (21:39)
[2018-01-08] MEDS ORDERED: IBUP-844 PO (21:39)
[2018-01-09] MEDS: HYDROcodone/APAP 5 MG/325 MG (LORTAB) TAB PO PRN ×4 (00:56→21:47)
[2018-01-09] MEDS ORDERED: IBUPROFEN 600 MG (MOTRIN) TAB PO ONE (02:01)
[2018-01-09 03:02] VITALS: BP 89/47
[2018-01-09] MEDS: IBUPROFEN 600 MG (MOTRIN) TAB PO SCH ×3 (03:02→16:10)
[2018-01-09 05:49] LABS: BASOPHILS % (AUTO) 0 % (0-10); EOSINOPHILS # (AUTO) 0.2 10^3/uL (0.0-0.3); EOSINOPHILS % (AUTO) 1 % (0-10); HEMATOCRIT 29 % (35-52); HEMOGLOBIN 9.5 G/DL (11.5-16.0); LYMPHOCYTES # (AUTO) 2.6 X 10^3 (1.0-4.0); LYMPHOCYTES % (AUTO) 22 % (12-44); MEAN CORPUSCULAR HEMOGLOBIN 29 PG (25-34); MEAN CORPUSCULAR HGB CONC 33 G/DL (32-36); MEAN CORPUSCULAR VOLUME 88 FL (80-99); MEAN PLATELET VOLUME 9.1 FL (7.4-10.4); MONOCYTES # (AUTO) 0.9 X 10^3 (0.0-1.0); MONOCYTES % (AUTO) 8 % (0-12); NEUTROPHILS # (AUTO) 8.4 X 10^3 (1.8-7.8); NEUTROPHILS % (AUTO) 69 % (42-75); PLATELET COUNT 252 10^3/uL (130-400); RED BLOOD COUNT 3.32 10^6/uL (4.35-5.85); RED CELL DISTRIBUTION WIDTH 14.2 % (10.0-14.5); WHITE BLOOD COUNT 12.1 10^3/uL (4.3-11.0)
--- NOTE | 2018-01-09 08:04 | Postpartum Progress Note ---
Note Note Day # 1 Subjective: Patient is without complaints. Ambulating, voiding. Tolerating a regular diet without nausea or vomiting. Normal lochia. Pain is well controlled with oral pain medications. Objective: Vital Sign - Last 24 Hours 01/08/18 01/08/18 01/08/18 01/09/18 08:05 14:45 21:20 03:02 Temp 98.2 98.4 98.5 Pulse 80 64 80 64 Resp 18 18 18 18 B/P (MAP) 119/58 (78) 119/75 (90) 101/67 (78) 89/47 (61) Pulse Ox 97 97 96 O2 Delivery Room Air Room Air Room Air Room Air Intake and Output 01/08/18 01/08/18 01/09/18 15:00 23:00 07:00 Intake Total 200 ml 400 ml Output Total 250 ml 700 ml Balance -250 ml -500 ml 400 ml Physical Exam: General - Alert and oriented, no apparent distress Abdomen - Soft, appropriately tender to palpation, non-distended, fundus firm at umbilicus Extremities - no edema, negative Boy's bilaterally Incision- c/d/i Assessment: POD 1 RLTCS labor Acute blood loss anemia Plan: Routine care. Encourage breast feeding. Encourage ambulation. Ferrous sulfate supplementation. Plan for discharge tomorrow Vitals - Labs Vital Signs - I&O Vital Signs Date Time Temp Pulse Resp B/P (MAP) Pulse Ox O2 Delivery O2 Flow Rate FiO2 01/09/18 03:02 98.5 64 18 89/47 (61) 96 Room Air 01/08/18 21:20 98.4 80 18 101/67 (78) 97 Room Air 01/08/18 14:45 98.2 64 18 119/75 (90) 97 Room Air 01/08/18 08:05 80 18 119/58 (78) Room Air I & O 01/09/18 07:00 Intake Total 600 ml Output Total 950 ml Balance -350 ml Labs Laboratory Tests 01/09/18 05:25: White Blood Count 12.1H, Red Blood Count 3.32L, Hemoglobin 9.5L, Hematocrit 29L , Mean Corpuscular Volume 88, Mean Corpuscular Hemoglobin 29, Mean Corpuscular Hemoglobin Concent 33, Red Cell Distribution Width 14.2, Platelet Count 252, Mean Platelet Volume 9.1, Neutrophils (%) (Auto) 69, Lymphocytes (%) (Auto) 22, Monocytes (%) (Auto) 8, Eosinophils (%) (Auto) 1, Basophils (%) (Auto) 0, Neutrophils # (Auto) 8.4H, Lymphocytes # (Auto) 2.6, Monocytes # (Auto) 0.9, Eosinophils # (Auto) 0.2, Basophils # (Auto) 0.[address] DO Jan 09, 2018 08:04
[2018-01-09 09:17] VITALS: BP 117/58
--- NOTE | 2018-01-09 11:49 | Anesthesia-General Post-Op ---
General Patient Condition Mental Status/LOC: Same as Preop Cardiovascular: Satisfactory Nausea/Vomiting: Absent Respiratory: Satisfactory Pain: Controlled Complications: Absent Post Op Complications Complications None Follow Up Care/Instructions Patient Instructions None needed. Anesthesia/Patient Condition Patient Condition Patient is doing well, no complaints, stable vital signs, no apparent adverse anesthesia problems. No complications reported per nursing. MANOLO SINHA CRNA Jan 09, 2018 11:49
[2018-01-09 16:00] VITALS: BP 110/77
[2018-01-09] MEDS: DOCUSATE SODIUM 100 MG (COLACE) CAP PO SCH ×3 (20:08→21:47)
[2018-01-09 20:15] VITALS: BP 112/65
[2018-01-10 00:45] VITALS: BP 100/53
[2018-01-10] MEDS: IBUPROFEN 600 MG (MOTRIN) TAB PO SCH ×4 (00:45→17:58)
[2018-01-10 06:22] VITALS: BP 99/57
[2018-01-10] MEDS: DOCUSATE SODIUM 100 MG (COLACE) CAP PO SCH (08:37)
[2018-01-10] MEDS: HYDROcodone/APAP 5 MG/325 MG (LORTAB) TAB PO PRN ×3 (08:37→17:58)
--- NOTE | 2018-01-10 09:37 | Postpartum Progress Note ---
Note Note Day # 2 Subjective: Patient is without complaints. Ambulating, voiding. Tolerating a regular diet without nausea or vomiting. Normal lochia. Pain is well controlled with oral pain medications. Objective: Vital Sign - Last 24 Hours 01/09/18 01/09/18 01/10/18 01/10/18 16:00 20:15 00:45 06:22 Temp 98.1 98.4 98.3 98.1 Pulse 80 66 55 51 Resp 18 18 18 18 B/P (MAP) 110/77 (88) 112/65 (81) 100/53 (69) 99/57 (71) Pulse Ox 96 97 97 96 O2 Delivery Room Air Room Air Room Air Room Air Intake and Output 01/09/18 01/09/18 01/10/18 15:00 23:00 07:00 Intake Total 800 ml Balance 800 ml Physical Exam: General - Alert and oriented, no apparent distress Abdomen - Soft, appropriately tender to palpation, non-distended, fundus firm at umbilicus Extremities - no edema, negative Boy's bilaterally Incision- c/d/i Assessment: POD 2 RLTCS labor Acute blood loss anemia Plan: Routine care. Encourage breast feeding. Encourage ambulation. Ferrous sulfate supplementation. Plan for discharge today Vitals - Labs Vital Signs - I&O Vital Signs Date Time Temp Pulse Resp B/P (MAP) Pulse Ox O2 Delivery O2 Flow Rate FiO2 01/10/18 06:22 98.1 51 18 99/57 (71) 96 Room Air 01/10/18 00:45 98.3 55 18 100/53 (69) 97 Room Air 01/09/18 20:15 98.4 66 18 112/65 (81) 97 Room Air 01/09/18 16:00 98.1 80 18 110/77 (88) 96 Room Air I & O 01/10/18 07:00 Intake Total 800 ml Balance 800 ml Labs Microbiology 01/08/18 Urine Culture - Final, Complete NO GROWTH FRANCE LANE DO Jan 10, 2018 9:37 am
[2018-01-10 12:45] VITALS: BP 94/52
[2018-01-10 18:01] VITALS: BP 112/75
--- NOTE | 2018-01-12 11:47 | Physician Query-Final Dx ---
KALA FREEMAN 01/12/18 1147: Final Diagnosis Give Final Diagnosis Please give Final Diagnosis FRANCE LANE DO 01/12/18 1529: Final Diagnosis Give Final Diagnosis POD 2 RLTCS w/ RRS KALA FREEMAN Jan 12, 2018 11:[address] DO Jan 12, 2018 15:29
== END 2018-01-10 18:04 | disposition home or self-care (01) | DRG 783 ==
LOC: WSo 02:37 → LDRP 02:40 → WSo 07:42 → LDRP 07:48
PROVIDERS: ADMIT Obstetrics & Gynecology; ATTEND Obstetrics & Gynecology
PROC: 0UT70ZZ Resection of Bilateral Fallopian Tubes, Open Approach (ICD-10-PCS; 2018-01-08)
PROC: 10D00Z1 Extraction of Products of Conception, Low, Open Approach (ICD-10-PCS; principal; 2018-01-08 08:11)
DX: O45.93 Premature separation of placenta, unspecified, third trimester (principal); O60.14X0 Preterm labor third trimester with preterm delivery third trimester, not applicable or unspecified; O34.211 Maternal care for low transverse scar from previous cesarean delivery; O90.81 Anemia of the puerperium; D62 Acute posthemorrhagic anemia; O99.824 Streptococcus B carrier state complicating childbirth; O99.344 Other mental disorders complicating childbirth; F41.9 Anxiety disorder, unspecified; F32.9 Major depressive disorder, single episode, unspecified; Z3A.36 36 weeks gestation of pregnancy; Z37.0 Single live birth; Z80.41 Family history of malignant neoplasm of ovary
CPT/HCPCS: 36415; 80306; 81000; 85025; 86850; 86870; 86900; 86901; 87088; 88305; 88307; 94664; 99212

== ENCOUNTER 2018-11-27 15:51 | Emergency (ER) | payer MEDICAID, OTHER ==
[~2018-11-27] VITALS: Ht 157.5 cm; Wt 44.5 kg
[~2018-11-27 15:51] MED LIST changes: +ACHD5005 PO; +DOCU100C37 PO; +IBUP-844 PO
--- NOTE | 2018-11-27 16:00 | ED General ---
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 She complains of pain about the small finger on the left hand Allergies and Home Medications Allergies Coded Allergies: No Known Drug Allergies (Unverified , 11/17/17) Home Medications Docusate Sodium 100 Mg Capsule, 100 MG PO BID PRN for CONSTIPATION-1ST LINE Prescribed by: FRANCE LANE on 01/08/182138 Hydrocodone Bit/Acetaminophen 1 Tab Tab, 1 TAB PO Q4H PRN for PAIN-MODERATE Prescribed by: FRANCE LANE on 01/08/182138 Ibuprofen 600 Mg Tablet, 600 MG PO Q6H Prescribed by: FRANCE LANE on 01/08/182138 Ibuprofen 600 Mg Tablet, 600 MG PO Q6H PRN for PAIN-MILD Prescribed by: HANDY JOHNSON on 11/27/18 1619 Polymyxin B Sulf/Trimethoprim 10 Ml Drops, 1 DROP OP Q3H Prescribed by: HANDY JOHNSON on 11/27/18 1633 Patient Home Medication List Home Medication List Reviewed: Yes Review of Systems Review of Systems Constitutional: no symptoms reported Respiratory: no symptoms reported Cardiovascular: no symptoms reported Musculoskeletal: see HPI Skin: no symptoms reported Past Aiscicr-Awmieq-Udejcs Hx Patient Social History Type Used: Cigarettes 2nd Hand Smoke Exposure: Yes Recent Hopitalizations: No Immunizations Up To Date Tetanus Booster (TDap): Unknown Seasonal Allergies Seasonal Allergies: Yes Past Medical History Surgeries: Yes Section Respiratory: Yes Asthma Cardiac: No Neurological: Yes Seizure Disorder Genitourinary: No Gastrointestinal: No Musculoskeletal: No Endocrine: No HEENT: No Cancer: No Psychosocial: Yes Anxiety, PTSD, Bipolar, Depression Integumentary: No Blood Disorders: Yes (ANEMIA) Physical Exam Vital Signs Vital Signs - First Documented 11/27/18 16:04 Temp 37.3 Pulse 69 Resp 18 B/P (MAP) 116/47 (70) Pulse Ox 99 O2 Delivery Room Air Capillary Refill : Height, Weight, BMI Height: 5'1.00" Weight: 132lbs. 0.0oz. 59.774959rx; 24.9 BMI Method:Stated General Appearance: No Apparent Distress, WD/WN HEENT: PERRL/EOMI Neck: Full Range of Motion Respiratory: Lungs Clear Cardiovascular: Regular Rate, Rhythm, No Murmur Extremity: Normal Capillary Refill, Normal Inspection, Normal Range of Motion Skin: Normal Color, Warm/Dry Progress/Results/Core Measures Suspected Sepsis SIRS Temperature: Pulse: Respiratory Rate: Blood Pressure / Mean: Results/Orders My Orders Orders - HANDY JOHNSON DO Hand 3 View Left (11/27/18 16:02) Vital Signs/I&O 11/27/18 16:04 Temp 37.3 Pulse 69 Resp 18 B/P (MAP) 116/47 (70) Pulse Ox 99 O2 Delivery Room Air Capillary Refill : Progress Note : Time: 16:12 Progress Note Patient is seen and examined. Examination of the left small finger does not reveal any acute findings. No swelling or ecchymosis. No subungual hematoma. No nail avulsion. We'll get plain film imaging to further evaluate. Patient has full range of motion although with some minor discomfort. Capillary refill is less than 2 seconds. Sensation to light touch is intact. 16:35: X-ray results are reviewed. No acute displaced fracture although there may be a small area of cortical disruption at the base of the first metacarpal bone on the small finger. Radiology report pending. Nonetheless, would be very minor if present. Patient was placed in finger splint. She is discharged home with ibuprofen. Advised follow-up with primary care doctor as needed. There is a secondary complaint today that her eyes have been irritated intermittently. She is present with her daughter today who does have pink eye on exam. I provided mom with some antibiotic eyedrops to use empirically on herself and on her daughter for treatment pinkeye. Departure Impression Primary Impression: Contusion of hand Disposition: HOME, SELF-CARE Condition: Improved Departure-Patient Inst. Referrals: NO,LOCAL PHYSICIAN (PCP/Family) Primary Care Physician Scripts Polymyxin B Sulf/Trimethoprim (Polymyxin B-Tmp Eye Drops) 10 Ml Drops 1 DROP OP Q3H, #10 ML Prov: HANDY JOHNSON DO 11/27/18 Ibuprofen (Ibuprofen) 600 Mg Tablet 600 MG PO Q6H PRN for PAIN-MILD, #28 TAB Prov: HANDY JOHNSON DO 11/27/18 HANDY JOHNSON DO Nov 27, 2018 16:00
[2018-11-27] MEDS ORDERED: IBUP-1773 PO (16:19)
--- NOTE | 2018-11-27 16:26 | Diagnostic Imaging Report ---
INDICATION: Smashed hand in [employer] driv[employer] window. COMPARISON: None available. TECHNIQUE: Three radiographs of the left hand dated 11/27/2018. FINDINGS: No acute fracture or dislocation. No destructive osseous process. Joint spaces are well-maintained. No suspicious radiopaque foreign body. Carpal alignment is well maintained. IMPRESSION: No acute osseous abnormality. Dictated by: Dictated on workstation # [id number]
[2018-11-27 16:33] VITALS: BP 116/47
[2018-11-27] MEDS ORDERED: PLTR10OP OP (16:33)
== END 2018-11-27 16:36 | disposition home or self-care (01) ==
LOC: EDUNIT# 15:51 → ER FS 15:54
DX: S60.222A Contusion of left hand, initial encounter (principal); J45.909 Unspecified asthma, uncomplicated; F43.10 Post-traumatic stress disorder, unspecified; F31.9 Bipolar disorder, unspecified; F41.9 Anxiety disorder, unspecified; D64.9 Anemia, unspecified; G40.909 Epilepsy, unspecified, not intractable, without status epilepticus; Z77.22 Contact with and (suspected) exposure to environmental tobacco smoke (acute) (chronic); W23.1XXA Caught, crushed, jammed, or pinched between stationary objects, initial encounter
CPT/HCPCS: 29130; 73130

== ENCOUNTER 2018-12-04 09:43 | Emergency (ER) | payer OTHER ==
[~2018-12-04] VITALS: Ht 154 cm; Wt 43.0 kg
[~2018-12-04 09:43] MED LIST changes: +IBUP-1773 PO; +PLTR10OP OP
[2018-12-04] MEDS ORDERED: NAPROXEN 250 MG (NAPROSYN) TABLET PO STA (10:02)
--- NOTE | 2018-12-04 10:09 | ED Upper Extremity ---
General Chief Complaint: Upper Extremity Stated Complaint: L HAND PREV INJ/PAIN Nursing Triage Note: PT TO TRIAGE CO OF PAIN 5TH FINGER L HAND, WAS SMASHED IN [employer] ON 11/27/18. PT STATES HAS AN X-RAY AND HAS CHIP OUT OF 5TH FINGER. PT STATES HAS PAIN IN FINGER RATE8/10 Nursing Sepsis Screen: No Definite Risk Source: patient Exam Limitations: no limitations History of Present Illness Date Seen by Provider: Dec 04, 2018 Time Seen by Provider: 09:55 Initial Comments Here with report of pain to the left fifth finger. 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 Seen a few days ago for the same. Pain is persisting. X- ray at that time and questionable fracture by the ER physician but noted to be negative by radiology. She states pain is not controlled with Tylenol or ibuprofen so she has not been taking them. She has been using the splint and has continued to work. States the pain as per significant currently. Denies any reinjury of finger or hand. Onset: last week Severity: moderate Pain/Injury Location: left 5th finger Method of Injury: direct blow Modifying Factors: Improves With Immobilization; Worse With Movement Allergies and Home Medications Allergies Coded Allergies: No Known Drug Allergies (Unverified , 11/17/17) Home Medications No Active Prescriptions or Reported Meds Patient Home Medication List Home Medication List Reviewed: Yes Review of Systems Constitutional: see HPI; No chills, No fever Respiratory: no symptoms reported Cardiovascular: no symptoms reported Musculoskeletal: see HPI, joint pain, joint swelling (IP left finger fifth), muscle pain Skin: no symptoms reported Psychiatric/Neurological: No Symptoms Reported Past Mdhnmjl-Klpgtx-Eaecyh Hx Past Med/Social Hx: Reviewed Nursing Past Med/Soc Hx Patient Social History Alcohol Use: Denies Use Recreational Drug Use: Yes (POT) Smoking Status: Current Everyday Smoker Type Used: Cigarettes 2nd Hand Smoke Exposure: Yes Recent Foreign Travel: No Contact w/Someone Who Travel: No Recent Infectious Disease Expo: No Recent Hopitalizations: No Physical Abuse: No Sexual Abuse: No Immunizations Up To Date Tetanus Booster (TDap): Less than 5yrs Seasonal Allergies Seasonal Allergies: Yes Past Medical History Surgeries: Yes Section Respiratory: Yes Asthma Cardiac: No Neurological: Yes Seizure Disorder Last Menstrual Period: Nov 10, 2018 Genitourinary: No Gastrointestinal: No Musculoskeletal: No Endocrine: No HEENT: No Cancer: No Psychosocial: Yes Anxiety, PTSD, Bipolar, Depression Integumentary: No Blood Disorders: Yes (ANEMIA) Family Medical History Reviewed Nursing Family Hx Physical Exam Vital Signs Vital Signs - First Documented 12/04/18 09:48 Temp 37.0 Pulse 75 Resp 18 B/P (MAP) 115/71 (86) Pulse Ox 98 Capillary Refill : Less Than 3 Seconds Height, Weight, BMI Height: 5'1.00" Weight: 132lbs. 0.0oz. 59.439050gm; 18.00 BMI Method:Stated General Appearance: WD/WN, no apparent distress Cardiovascular: regular rate, rhythm, no murmur Respiratory: lungs clear, normal breath sounds Hand: Left, bone tenderness (left fifth finger from MCP to proximal phalanx just distal to IP joint.), limited ROM (pain limited to left fifth finger), stiffness, swelling (IP joint on the left fifth) Neurologic/Tendon: normal sensation, normal tendon functions Neurologic/Psychiatric: alert, oriented x 3 Skin: normal color, warm/dry; No ecchymosis Progress/Results/Core Measures Results/Orders My Orders Orders - ERIK ARREAGA MD Naproxen Tablet (Naprosyn Tablet) (12/04/18 10:02) Hand, Left, 3 Views (12/04/18 10:02) Vital Signs/I&O 12/04/18 09:48 Temp 37.0 Pulse 75 Resp 18 B/P (MAP) 115/71 (86) Pulse Ox 98 Blood Pressure Mean: 86 Progress Progress Note : Progress Note Seen and evaluated. Given the persistence of pain, we will go ahead and repeat x-ray of the hand on the left. I offered oral or IM medication and she prefers oral. Naprosyn 500 mg by mouth given. Monitor patient. 1110 doing a little bett er. No acute fracture. Patient reapplied or splint and Oseas wrap which I agree with. Diagnostic Imaging Diagonstic Imaging: Xray Plain Films/CT/US/NM/MRI: other Comments [facility] [place] NAME: DOMINGA HANDLEY [facility] REC#: [id number] PT STATUS: REG ER : 1995 PHYSICIAN: ERIK ARREAGA MD ADMIT DATE: 12/04/18/ER Draft Date of Exam:12/04/18 HAND, LEFT, 3 VIEWS Clinical indication: Patient with fifth finger left hand pain which was smashed in a drive thru window on 11/27/2018. Exam: X-ray of the left hand, 3 views. Comparison: X-ray of the left hand dated 11/27/2018. Findings: There is no acute fracture or dislocation. There is no significant bone or joint abnormality. The carpal bones and phalanges are unremarkable. Impression: There is no acute fracture or dislocation. Dictated on workstation # [id number] Dict: 12/04/18 1035 Trans: 12/04/18 1042 KARINA [id number] Interpreted by: EASTON GUIDO MD Electronically signed by: Departure Impression Primary Impression: Contusion of finger of left hand Qualified Codes: S60.052D - Contusion of left little finger without damage to nail, subsequent encounter Disposition: 01 HOME, SELF-CARE Condition: Stable Departure-Patient Inst. Decision time for Depature: 11:18 Referrals: NO,LOCAL PHYSICIAN (PCP/Family) Primary Care Physician Patient Instructions: Common Finger Injuries, Contusion (DC) Add. Discharge Instructions: All discharge instructions reviewed with patient and/or family. Voiced understanding. You may use the splint as needed for comfort over the next week or so. You may also take it out of the splint and move it seems to decrease swelling and stiffness. You may use Aleve or the generic naproxen one or 2 tablets every 12 hours as needed for swelling or pain. You may take acetaminophen regular strength tablet (325 mg) 2 tablets every 6 hours as needed for pain. Follow-up with your doctor this week for recheck and further evaluation. Return for worse pain, swelling, weakness, numbness or other concerns as needed. Scripts No Active Prescriptions or Reported Meds ERIK ARREAGA MD Dec 04, 2018 10:09
--- NOTE | 2018-12-04 10:43 | Diagnostic Imaging Report ---
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 Exam: X-ray of the left hand, 3 views. Comparison: X-ray of the left hand dated 11/27/2018. Findings: There is no acute fracture or dislocation. There is no significant bone or joint abnormality. The carpal bones and phalanges are unremarkable. Impression: There is no acute fracture or dislocation. Dictated by: Dictated on workstation # [id number]
[2018-12-04 11:28] VITALS: BP 128/75
== END 2018-12-04 11:28 | disposition home or self-care (01) ==
LOC: EDUNIT# 09:43 → ER 09:44
DX: S60.052D Contusion of left little finger without damage to nail, subsequent encounter (principal); J45.909 Unspecified asthma, uncomplicated; G40.909 Epilepsy, unspecified, not intractable, without status epilepticus; F41.9 Anxiety disorder, unspecified; F43.10 Post-traumatic stress disorder, unspecified; F31.9 Bipolar disorder, unspecified; D64.9 Anemia, unspecified; F17.210 Nicotine dependence, cigarettes, uncomplicated; W22.8XXD Striking against or struck by other objects, subsequent encounter
CPT/HCPCS: 73130

== ENCOUNTER 2018-12-14 11:08 | Emergency (ER) | payer SELFPAY ==
[~2018-12-14] VITALS: Ht 156 cm; Wt 45.8 kg
[2018-12-14] MEDS ORDERED: AZIT250T PO (11:43)
[2018-12-14] MEDS ORDERED: PRD20T PO (11:43)
[2018-12-14] MEDS ORDERED: GUAI-365 PO (11:43)
--- NOTE | 2018-12-14 11:43 | ED General ---
General Chief Complaint: Upper Extremity Stated Complaint: SINUS PAIN Nursing Triage Note: Patient c/o cold, sinus pressure, headache. She also reports that it hurts to take a deep breath. She states that she has been having these symptoms for the past 2 days. Nursing Sepsis Screen: No Definite Risk Source of Information: Patient Exam Limitations: No Limitations History of Present Illness Date Seen by Provider: Dec 14, 2018 Time Seen by Provider: 11:15 Initial Comments Patient is a 23-year-old female with history of asthma who presents with sore throat, body aches, nasal congestion, rhinorrhea sinus pain and tenderness. Symptoms began yesterday and worse today. Denies fever chills, nausea vomiting. No chest pain shortness of breath. Denies flank pain, urinary frequency urgency. Patient did call and work yesterday and again this morning. Patient is a current smoker. Timing/Duration: 24 Hours Severity: Moderate Modifying Factors: improves with Medication Associated Systoms: Cough, Malaise Allergies and Home Medications Allergies Coded Allergies: No Known Drug Allergies (Unverified , 11/17/17) Home Medications No Active Prescriptions or Reported Meds Patient Home Medication List Home Medication List Reviewed: Yes Review of Systems Review of Systems Constitutional: see HPI EENTM: see HPI Respiratory: see HPI Cardiovascular: see HPI Genitourinary: see HPI Musculoskeletal: see HPI Skin: see HPI Psychiatric/Neurological: See HPI Past Lcztbrs-Yrnnjq-Efnqrb Hx Past Med/Social Hx: Reviewed Nursing Past Med/Soc Hx Patient Social History Alcohol Use: Denies Use Recreational Drug Use: Yes Drug of Choice: marijuana Smoking Status: Current Everyday Smoker Type Used: Cigarettes 2nd Hand Smoke Exposure: Yes Recent Foreign Travel: No Contact w/Someone Who Travel: No Recent Infectious Disease Expo: No Recent Hopitalizations: No Physical Abuse: No Sexual Abuse: No Mistreated: No Fear: No Immunizations Up To Date Tetanus Booster (TDap): Less than 5yrs Seasonal Allergies Seasonal Allergies: Yes Past Medical History Surgeries: Yes Section Respiratory: Yes Asthma Cardiac: No Neurological: Yes Seizure Disorder Genitourinary: No Gastrointestinal: No Musculoskeletal: No Endocrine: No HEENT: No Cancer: No Psychosocial: Yes Anxiety, PTSD, Bipolar, Depression Integumentary: No Blood Disorders: Yes (ANEMIA) Physical Exam Vital Signs Vital Signs - First Documented 12/14/18 11:15 Temp 36.6 Pulse 73 Resp 16 B/P (MAP) 99/55 (70) Pulse Ox 96 O2 Delivery Room Air Capillary Refill : Less Than 3 Seconds Height, Weight, BMI Height: 5'1.00" Weight: 132lbs. 0.0oz. 59.362543vr; 18.00 BMI Method:Stated General Appearance: No Apparent Distress Eyes: Bilateral Eye Normal Inspection, Bilateral Eye PERRL, Bilateral Eye EOMI HEENT: PERRL/EOMI, TMs Normal, Pharynx Normal, Moist Mucous Membranes (just, rhinorrhea,), Other Neck: Full Range of Motion, Normal Inspection, Non Tender, Supple ( sinus pain, no tenderness) Respiratory: Chest Non Tender, Lungs Clear Cardiovascular: Regular Rate, Rhythm Gastrointestinal: Non Tender, Soft Back: Normal Inspection, No CVA Tenderness Extremity: Normal Capillary Refill, Normal Inspection Neurologic/Psychiatric: Alert, Oriented x3 Focused Exam Sepsis Stage: Ruled Out Progress/Results/Core Measures Suspected Sepsis Recent Fever Within 48 Hours: No Infection Criteria Present: Suspected New Infection New/Unexplained Altered Menta: No Sepsis Screen: No Definite Risk SIRS Temperature: Pulse: 73 Respiratory Rate: 16 Blood Pressure 99 /55 Mean: 70 Results/Orders Vital Signs/I&O 12/14/18 11:15 Temp 36.6 Pulse 73 Resp 16 B/P (MAP) 99/55 (70) Pulse Ox 96 O2 Delivery Room Air Capillary Refill : Less Than 3 Seconds Blood Pressure Mean: 70 Departure Communication (Admissions) Flulike syndrome. Will treat supportively with PCP follow-up. Return precautions reviewed. Impression Primary Impression: Flu-like symptoms Disposition: 01 HOME, SELF-CARE Condition: Stable Departure-Patient Inst. Referrals: NO,LOCAL PHYSICIAN (PCP/Family) Primary Care Physician Patient Instructions: VIRAL RESP ILLNESS-ADULT Add. Discharge Instructions: Please take newly prescribed medications, increase fluids and follow up with PCP in 2-3 days for reevaluation if symptoms persist. Use albuterol inhaler as needed for wheezing and shortness of breath. Return to the ED if new or worsening symptoms. All discharge instructions reviewed with patient and/or family. Voiced understanding. Scripts Azithromycin (Zithromax) 250 Mg Tablet 250 MG PO UD, #6 TAB TAKE 2 TABLETS TODAY, THEN TAKE 1 TABLET DAILY FOR 4 MORE DAYS Prov: BEULAH LYLE DO 12/14/18 Guaifenesin/Pseudoephedrne HCl (Mucinex D ER 1,200-120 mg Tab) 1 Each Tab.er.12h 1 EACH PO BID, #18 TAB Prov: BEULAH LYLE DO 12/14/18 Prednisone (Prednisone) 20 Mg Tab 40 MG PO DAILY, #6 TAB 0 Refills Prov: BEULAH LYLE DO 12/14/18 Work/School Note: Work Release Form Date Seen in the Emergency Department: Dec 14, 2018 Return to Work: Dec 18, 2018 Restrictions: No Restrictions BEULAH LYLE DO Dec 14, 2018 11:43
[2018-12-14 11:49] VITALS: BP 99/55
== END 2018-12-14 11:49 | disposition home or self-care (01) ==
LOC: EDUNIT# 11:08 → ER FS 11:12
DX: R09.89 Other specified symptoms and signs involving the circulatory and respiratory systems (principal); J45.909 Unspecified asthma, uncomplicated; G40.909 Epilepsy, unspecified, not intractable, without status epilepticus; F41.9 Anxiety disorder, unspecified; F43.10 Post-traumatic stress disorder, unspecified; F31.9 Bipolar disorder, unspecified; D64.9 Anemia, unspecified; F17.210 Nicotine dependence, cigarettes, uncomplicated
CPT/HCPCS: 99283

== ENCOUNTER 2019-01-27 23:10 | Emergency (ER) | payer SELFPAY ==
[~2019-01-27] VITALS: Ht 155 cm; Wt 46.3 kg
[~2019-01-27 23:10] MED LIST changes: +AZIT250T PO; +GUAI-365 PO; +PRD20T PO
--- NOTE | 2019-01-27 23:40 | ED Upper Extremity ---
General Chief Complaint: Upper Extremity Stated Complaint: RT HAND PAIN Nursing Triage Note: fall while skating, right hand/thumb pain. denies other injury. Nursing Sepsis Screen: No Definite Risk Source: patient History of Present Illness Date Seen by Provider: Jan 27, 2019 Time Seen by Provider: 23:28 Initial Comments PT ARRIVES VIA POV STATES SHE WAS AT THE SKATING RINK AND FELL ON OUTSTRETCHED RIGHT HAND C/O PAIN TO PALM OF HAND AT BASE OF THUMB NO PARESTHESIAS OR MOTOR DEFICITS OCCURRED AT 2245 HAS NOT TAKEN ANYTHING FOR PAIN NO PRIOR INJURY TO THIS HAND NO OTHER INJURIES FROM THE INCIDENT HAS NOT TAKEN ANYTHING FOR PAIN LMP 01/09/19. NORMAL. S/P BTL Allergies and Home Medications Allergies Coded Allergies: No Known Drug Allergies (Unverified , 11/17/17) Home Medications Meloxicam 15 Mg Tablet, 15 MG PO DAILY Prescribed by: KAROLINE MALONEY on 01/28/19 0000 Patient Home Medication List Home Medication List Reviewed: Yes Review of Systems Constitutional: no symptoms reported LMP: Jan 09, 2019 Control/STD Prophylaxis: Other (BTL) Musculoskeletal: see HPI Skin: no symptoms reported Psychiatric/Neurological: No Symptoms Reported Past Sbwrgpk-Ridzpj-Vbzggy Hx Patient Social History Alcohol Use: Rarely Uses (HX OF ABUSE/HEAVY USE) Recreational Drug Use: Yes (THC) Drug of Choice: cannibus Smoking Status: Current Everyday Smoker (1/2 PPD) Type Used: Cigarettes 2nd Hand Smoke Exposure: Yes Recent Foreign Travel: No Contact w/Someone Who Travel: No Recent Infectious Disease Expo: No Recent Hopitalizations: No Physical Abuse: No Sexual Abuse: No Mistreated: No Fear: No Immunizations Up To Date Tetanus Booster (TDap): Less than 5yrs Seasonal Allergies Seasonal Allergies: Yes Past Medical History Surgeries: Yes Section, Tubal Ligation Respiratory: Yes Asthma Cardiac: No Neurological: Yes Seizure Disorder : No Reproductive Disorders: No Female Reproductive Disorders: Denies 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 0.0oz. 59.797103jy; 19.00 BMI Method:Stated General Appearance: thin, other (VERY DRAMATIC, MARKEDLY EXAGGERATED PAIN RESPONSE) Shoulder: normal inspection Elbow/Forearm: normal inspection Wrist: Yes normal inspection Hand: Right (THENAR EMINENCE), bone tenderness, limited ROM, soft tissue tenderness, swelling Neurologic/Tendon: normal sensation, normal motor functions, normal tendon functions Neurologic/Psychiatric: no motor/sensory deficits, alert Skin: normal color, warm/dry, tattoos/piercings (MULTIPLE TATTOOS) Procedures/Interventions Splinting and Joint Reduction : Splints: Thumb/Wrist Spica Progress/Results/Core Measures Results/Orders My Orders Orders - KAROLINE MALONEY DO Hand, Right, 3 Views (01/27/19 23:27) Thumb Spika (01/28/19 00:01) Rx-Naproxen (Rx-Naprosyn) (01/28/19 00:01) Vital Signs/I&O Blood Pressure Mean: 84 POS Diagnostic Imaging Comments XRAYS RIGHT HAND--NO FX OR DISLOCATION, PENDING RADIOLOGIST REVIEW Reviewed: Reviewed by Me Departure Impression Primary Impression: Contusion of right hand Additional Impression: Sprain of right thumb Disposition: 01 HOME, SELF-CARE Condition: Stable Departure-Patient Inst. Referrals: NO,LOCAL PHYSICIAN (PCP) Primary Care Physician ABEBA SIMPSON MD Patient Instructions: Sprained Thumb (DC), Contusion (DC) Add. Discharge Instructions: WEAR SPLINT AT ALL TIMES ICE TO AREA AT 20 MINUTE INTERVALS FOLLOW UP WITH DR. SIMPSON NEXT WEEK FOR FURTHER CARE All discharge instructions reviewed with patient and/or family. Voiced understanding. Scripts Meloxicam (Mobic) 15 Mg Tablet 15 MG PO DAILY, #10 TAB Prov: KAROLINE MALONEY DO 01/28/19 KAROLINE MALONEY DO Jan 27, 2019 23:39 POS
[2019-01-28] MEDS ORDERED: MELO15TA14 PO
[2019-01-28] MEDS ORDERED: RX-NAPROXEN (NAPROSYN) 250 MG TAB PPK#4 PO STA (00:01)
[2019-01-28 00:08] VITALS: BP 110/71
--- NOTE | 2019-01-28 05:43 | Diagnostic Imaging Report ---
INDICATION: Hand pain and swelling. FINDINGS: Alignment of the right hand appears appropriate. There are no findings of joint dislocation. Distal radius and ulna are unremarkable. The carpals are normally aligned. There is no carpal fracture. Remainder of the hand also unremarkable. There is no focal soft tissue abnormality. IMPRESSION: Negative radiographs of the right hand. Dictated by: Dictated on workstation # [id number]
== END 2019-01-28 00:10 | disposition home or self-care (01) ==
LOC: EDUNIT# 23:10 → ER 23:13
DX: S63.601A Unspecified sprain of right thumb, initial encounter (principal); S60.221A Contusion of right hand, initial encounter; J45.909 Unspecified asthma, uncomplicated; G40.909 Epilepsy, unspecified, not intractable, without status epilepticus; F41.9 Anxiety disorder, unspecified; F43.10 Post-traumatic stress disorder, unspecified; F31.9 Bipolar disorder, unspecified; D64.9 Anemia, unspecified; F17.210 Nicotine dependence, cigarettes, uncomplicated; Z98.51 Tubal ligation status; V00.121A Fall from non-in-line roller-skates, initial encounter; Y92.331 Roller skating rink as the place of occurrence of the external cause
CPT/HCPCS: 73130

== ENCOUNTER 2019-04-02 07:06 | Emergency (ER) | payer SELFPAY ==
[~2019-04-02] VITALS: Ht 155 cm; Wt 45.8 kg
[~2019-04-02 07:06] MED LIST changes: +MELO15TA14 PO
--- NOTE | 2019-04-02 07:38 | ED GU-Female ---
General Chief Complaint: - Urinary Stated Complaint: ABD PAIN Nursing Triage Note: Started having burning with urination 1 week ago. The pain is now radiating up into abdomen and is currently rated at 5/10, but is made worse by urinating. Denies fevers, chills, or flank pain. Does have history of UTI's, but states this is not how her UTI's normally feel. Nursing Sepsis Screen: No Definite Risk History of Present Illness Date Seen by Provider: Apr 02, 2019 Time Seen by Provider: 07:20 Initial Comments 23-year-old female presents with dysuria for the past week. Patient states that her pain is now radiating into her flanks she has a pain rating of 5/10 she says is worse when she urinates she does not have any fevers she however does admit to a long history of UTIs and has had increased vaginal discharge over the past week. Patient is sexually active. Patient has given informed consent for diagnostic and therapeutic services. She denies a history of cardiac pulmonary renal or GI disease. She has more pain in her left lower quadrant. Patient denies . Timing/Duration: week Severity/Quality: moderate (with progressive worsening and increased discharge), burning, cramping, sharp Location: LLQ, suprapubic Radiation: LLQ, back Activities at Onset: physical activity, sexual activity Prior Genitourinary Problems: none Sexual Nelagoney History: multiple partners Modifying Factors: Improves With Breathing, Improves With Urinating Associated Symptoms: abdominal pain, lower back pain Allergies and Home Medications Allergies Coded Allergies: No Known Drug Allergies (Unverified , 11/17/17) Home Medications Meloxicam 15 Mg Tablet, 15 MG PO DAILY Prescribed by: KAROLINE MALONEY on 01/28/19 0000 Patient Home Medication List Home Medication List Reviewed: Yes Review of Systems Review of Systems Constitutional: malaise, weakness, other (dysuria) EENTM: no symptoms reported, other (missing teeth) Respiratory: no symptoms reported Cardiovascular: no symptoms reported Gastrointestinal: LLQ, abdominal pain (suprapubic and dysuria) Genitourinary: burning, discharge (increasing over the past week), dysuria, flank pain (left lower quadrant pain now radiating to the left flank) : No Musculoskeletal: back pain Skin: no symptoms reported Psychiatric/Neurological: Anxiety Endocrine: No Symptoms Reported Hematologic/Lymphatic: No Symptoms Reported Past Irwldba-Bdbtrn-Eipgej Hx Patient Social History Alcohol Use: Denies Use Recreational Drug Use: Yes Drug of Choice: marijuana Smoking Status: Current Everyday Smoker Type Used: Cigarettes 2nd Hand Smoke Exposure: Yes Recent Foreign Travel: No Contact w/Someone Who Travel: No Recent Infectious Disease Expo: No Recent Hopitalizations: No Physical Abuse: No Sexual Abuse: No Mistreated: No Fear: No Immunizations Up To Date Tetanus Booster (TDap): Less than 5yrs Seasonal Allergies Seasonal Allergies: Yes Past Medical History Surgeries: Yes Section, Tubal Ligation Respiratory: Yes Asthma Cardiac: No Neurological: Yes Seizure Disorder Reproductive Disorders: No Female 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 0.0oz. 59.486868pu; 19.00 BMI Method:Stated General Appearance: WD/WN, moderate distress (suprapubic pain and dysuria) HEENT: PERRL/EOMI (some missing teeth), normal ENT inspection, pharynx normal Neck: non-tender, full range of motion, supple, normal inspection Cardiovascular: regular rate, rhythm, no edema, no gallop, no JVD, no murmur Respiratory: chest non-tender, no respiratory distress, no accessory muscle use, rales (inspiratory rales anterior and posterior chest consistent with heavy smoking) Gastrointestinal: normal bowel sounds, soft, no organomegaly, no pulsatile mass, tenderness (in the suprapubic and left lower quadrant), other (pierced umbilicus does not appear infected) Back: normal inspection, CVA tenderness (L) (early mostly anterior and flank) Extremities: normal range of motion, non-tender, normal inspection, no pedal edema, no calf tenderness 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, no motor/sensory deficits, alert, normal mood/affect, oriented x 3 Skin: normal color, warm/dry Lymphatic: no adenopathy Progress/Results/Core Measures Suspected Sepsis Recent Fever Within 48 Hours: No Infection Criteria Present: None New/Unexplained Altered Menta: No Sepsis Screen: No Definite Risk SIRS Temperature: Pulse: 69 Respiratory Rate: 16 Laboratory Tests 04/02/19 07:30: White Blood Count 8.2 Blood Pressure 102 /62 Mean: 75 Laboratory Tests 04/02/19 07:30: Creatinine 0.79, Platelet Count 276, Total Bilirubin 0.2 Results/Orders Lab Results Laboratory Tests Test 04/02/19 07:11 04/02/19 07:30 Range/Units Urine Color PALE YELLOW Urine Clarity CLOUDY Urine pH 6.0 5-9 Urine Specific [place] 1.020 1.016-1.022 Urine Protein 1+ H NEGATIVE Urine Glucose (UA) NEGATIVE NEGATIVE Urine Ketones NEGATIVE NEGATIVE Urine Nitrite NEGATIVE NEGATIVE Urine Bilirubin NEGATIVE NEGATIVE Urine Urobilinogen 0.2 < = 1.0 MG/DL Urine Leukocyte Esterase 3+ H NEGATIVE Urine RBC (Auto) 2+ H NEGATIVE Urine RBC 5-10 H /HPF Urine WBC TNTC H /HPF Urine Squamous Epithelial Cells 0-2 /HPF Urine Crystals NONE /LPF Urine Bacteria TRACE /HPF Urine Casts NONE /LPF Urine Mucus NONE /LPF Urine Culture Indicated YES Urine Opiates Screen NEGATIVE NEGATIVE Urine Oxycodone Screen NEGATIVE NEGATIVE Urine Methadone Screen NEGATIVE NEGATIVE Urine Propoxyphene Screen NEGATIVE NEGATIVE Urine Barbiturates Screen NEGATIVE NEGATIVE Ur Tricyclic Antidepressants Screen NEGATIVE NEGATIVE Urine Phencyclidine Screen NEGATIVE NEGATIVE Urine Amphetamines Screen NEGATIVE NEGATIVE Urine Methamphetamines Screen NEGATIVE NEGATIVE Urine Benzodiazepines Screen NEGATIVE NEGATIVE Urine Cocaine Screen NEGATIVE NEGATIVE Urine Cannabinoids Screen POSITIVE H NEGATIVE White Blood Count 8.2 4.3-11.0 10^3/uL Red Blood Count 4.14 L 4.35-5.85 10^6/uL Hemoglobin 12.1 11.5-16.0 G/DL Hematocrit 36 35-52 % Mean Corpuscular Volume 87 80-99 FL Mean Corpuscular Hemoglobin 29 25-34 PG Mean Corpuscular Hemoglobin Concent 34 32-36 G/DL Red Cell Distribution Width 12.9 10.0-14.5 % Platelet Count 276 130-400 10^3/uL Mean Platelet Volume 8.9 7.4-10.4 FL Neutrophils (%) (Auto) 53 42-75 % Lymphocytes (%) (Auto) 38 12-44 % Monocytes (%) (Auto) 7 0-12 % Eosinophils (%) (Auto) 2 0-10 % Basophils (%) (Auto) 1 0-10 % Neutrophils # (Auto) 4.3 1.8-7.8 X 10^3 Lymphocytes # (Auto) 3.1 1.0-4.0 X 10^3 Monocytes # (Auto) 0.6 0.0-1.0 X 10^3 Eosinophils # (Auto) 0.1 0.0-0.3 10^3/uL Basophils # (Auto) 0.0 0.0-0.1 10^3/uL Neutrophils % (Manual) 42 % Lymphocytes % (Manual) 48 % Monocytes % (Manual) 7 % Eosinophils % (Manual) 3 % Basophils % (Manual) 0 % Band Neutrophils 0 % Sodium Level 138 135-145 MMOL/L Potassium Level 3.9 3.6-5.0 MMOL/L Chloride Level 102 98-107 MMOL/L Carbon Dioxide Level 25 21-32 MMOL/L Anion Gap 11 5-14 MMOL/L Blood Urea Nitrogen 10 7-18 MG/DL Creatinine 0.79 0.60-1.30 MG/DL Estimat Glomerular Filtration Rate > 60 BUN/Creatinine Ratio 13 Glucose Level 96 70-105 MG/DL Calcium Level 9.6 8.5-10.1 MG/DL Corrected Calcium 9.2 8.5-10.1 MG/DL Total Bilirubin 0.2 0.1-1.0 MG/DL Aspartate Amino Transf (AST/SGOT) 10 5-34 U/L Alanine Aminotransferase (ALT/SGPT) 5 0-55 U/L Alkaline Phosphatase 56 40-136 U/L Total Protein 6.7 6.4-8.2 GM/DL Albumin 4.5 3.2-4.5 GM/DL My Orders Orders - GUILLE MCKEON DO Ua Culture If Indicated (04/02/19 07:22) Urine Bedside (04/02/19 07:23) Drug Screen Stat (Urine) (04/02/19 07:31) Cbc And Manual Diff (04/02/19 07:31) Comprehensive Metabolic Panel (04/02/19 07:31) Chlamydia Trachomatis Urine (04/02/19 07:31) Phenazopyridine Tablet (Pyridium Tablet) (04/02/19 07:45) Neis Aren Dna Urine Test (04/02/19 07:36) Urine Bedside (04/02/19 07:38) Urine Culture (04/02/19 07:11) Medications Given in ED Current Medications Medications Dose Ordered Sig/Vanessa Route Start Time Stop Time Status Last Admin Dose Admin Phenazopyridine HCl 100 mg ONCE ONCE PO 04/02/19 07:45 04/02/19 07:46 DC 04/02/19 07:53 100 MG Vital Signs/I&O 04/02/19 07:26 Temp 36.5 Pulse 69 Resp 16 B/P (MAP) 102/62 (75) Pulse Ox 98 Capillary Refill : Less Than 3 Seconds Blood Pressure Mean: 75 Progress Note : Time: 08:23 Progress Note Urinalysis reveals a high level of white blood cells consistent with UTI. Patient will be given Bactrim DS 1 by mouth twice a day for 10 days we do not have the gonorrhea or chlamydia results back yet in light of the patient's discharge I do believe doxycycline would be appropriate for the patient. 100 mg twice a day for 1 week. Follow-up care with local primary care provider. No intercourse until the patient is asymptomatic. CBC and tox screen without significant findings. Is encouraged to rest and increase her clear fluids vitamin C 1 g daily. And take medications as prescribed. Departure Impression Primary Impression: Urinary tract infection Additional Impression: Vaginal discharge Disposition: 01 HOME, SELF-CARE Condition: Stable Departure-Patient Inst. Decision time for Depature: 08:27 Referrals: NO,LOCAL PHYSICIAN (PCP) Primary Care Physician Patient Instructions: Urinary Tract Infection, Adult (DC), Vaginal Discharge in Adults Add. Discharge Instructions: Patient has been advised to increase clear fluids and start taking vitamin C 1000 mg daily continue using Pyridium Bactrim DS and doxycycline. Follow up with primary care physician or nurse practitioner. All discharge instructions reviewed with patient and/or family. Voiced understanding. Scripts Doxycycline Hyclate (Doxycycline Hyclate) 100 Mg Tablet 100 MG PO BID for 7 Days, #20 TAB 0 Refills Prov: GUILLE MCKEON DO 04/02/19 Phenazopyridine HCl (Pyridium) 200 Mg Tablet 1 TAB PO QID for 5 Days, #20 TAB Prov: GUILLE MCKEON DO 04/02/19 Sulfamethoxazole/Trimethoprim (Bactrim Ds Tablet) 1 Each Tablet 1 EACH PO BID for 10 Days, #20 TAB Prov: GUILLE MCKEON DO 04/02/19 GUILLE MCKEON DO Apr 02, 2019 07:38
[2019-04-02 07:42] LABS: BILIRUBIN,URINE NEGATIVE (NEGATIVE); CLARITY,URINE CLOUDY; COLOR,URINE PALE YELLOW; GLUCOSE, URINE (UA) NEGATIVE (NEGATIVE); KETONES,URINE NEGATIVE (NEGATIVE); LEUKOCYTE ESTERASE ,URINE 3+ (NEGATIVE); NITRITE,URINE NEGATIVE (NEGATIVE); PROTEIN,URINE 1+ (NEGATIVE)
[2019-04-02 07:43] LABS: BACTERIA,URINE TRACE /HPF; SQUAMOUS EPITHELIAL CELL,UR 0-2 /HPF; WBC,URINE TNTC /HPF
[2019-04-02] MEDS ORDERED: PHENAZOPYRIDINE 100 MG (PYRIDIUM) TABLET PO ONE (07:45)
[2019-04-02 07:50] LABS: HEMATOCRIT 36 % (35-52); HEMOGLOBIN 12.1 G/DL (11.5-16.0); MEAN CORPUSCULAR HEMOGLOBIN 29 PG (25-34); MEAN CORPUSCULAR VOLUME 87 FL (80-99); WHITE BLOOD COUNT 8.2 10^3/uL (4.3-11.0)
[2019-04-02 07:51] LABS: BASOPHILS % (AUTO) 1 % (0-10); EOSINOPHILS # (AUTO) 0.1 10^3/uL (0.0-0.3); EOSINOPHILS % (AUTO) 2 % (0-10); LYMPHOCYTES # (AUTO) 3.1 X 10^3 (1.0-4.0); LYMPHOCYTES % (AUTO) 38 % (12-44); MEAN CORPUSCULAR HGB CONC 34 G/DL (32-36); MEAN PLATELET VOLUME 8.9 FL (7.4-10.4); MONOCYTES # (AUTO) 0.6 X 10^3 (0.0-1.0); MONOCYTES % (AUTO) 7 % (0-12); NEUTROPHILS # (AUTO) 4.3 X 10^3 (1.8-7.8); NEUTROPHILS % (AUTO) 53 % (42-75); PLATELET COUNT 276 10^3/uL (130-400); RED CELL DISTRIBUTION WIDTH 12.9 % (10.0-14.5)
[2019-04-02 08:08] LABS: AMPHETAMINE SCREEN, URINE NEGATIVE (NEGATIVE); BARBITURATE SCREEN URINE NEGATIVE (NEGATIVE); BENZODIAZEPINES SCREEN URINE NEGATIVE (NEGATIVE); CANNABINOID SCREEN, URINE POSITIVE (NEGATIVE); COCAINE SCREEN URINE NEGATIVE (NEGATIVE); METHADONE STAT NEGATIVE (NEGATIVE); METHAMPHETAMINE SCREEN URINE S NEGATIVE (NEGATIVE); OPIATE SCREEN URINE NEGATIVE (NEGATIVE); OXYCODONE STAT NEGATIVE (NEGATIVE); PROPOXYPHENE STAT NEGATIVE (NEGATIVE); TRICYCLIC ANTIDEPRESSANTS SCRE NEGATIVE (NEGATIVE)
[2019-04-02 08:09] LABS: BAND NEUTROPHILS 0 %; BASOPHILS % (MANUAL) 0 %; EOSINOPHILS % (MANUAL) 3 %; LYMPHOCYTES % (MANUAL) 48 %; MONOCYTES % (MANUAL) 7 %; NEUTROPHILS % (MANUAL) 42 %
[2019-04-02 08:10] LABS: ALANINE AMINOTRANSFERASE 5 U/L (0-55); ALKALINE PHOSPHATASE 56 U/L (40-136); BILIRUBIN,TOTAL 0.2 MG/DL (0.1-1.0); BUN/CREATININE RATIO 13; CALCIUM 9.6 MG/DL (8.5-10.1); CARBON DIOXIDE 25 MMOL/L (21-32); CHLORIDE 102 MMOL/L (98-107); CREATININE SERUM 0.79 MG/DL (0.60-1.30); GFR ESTIMATED > 60; GLUCOSE 96 MG/DL (70-105); POTASSIUM 3.9 MMOL/L (3.6-5.0); SODIUM 138 MMOL/L (135-145); TOTAL PROTEIN 6.7 GM/DL (6.4-8.2)
[2019-04-02 08:11] LABS: ALBUMIN 4.5 GM/DL (3.2-4.5)
[2019-04-02] MEDS ORDERED: TRIM/SULFAMETH 160/800 (SEPTRA DS) TAB PO ONE (08:30)
[2019-04-02] MEDS ORDERED: DOXY100T2 PO (08:33)
[2019-04-02] MEDS ORDERED: SULF1TAB35 PO (08:33)
[2019-04-02] MEDS ORDERED: PHEN-640 PO (08:33)
[2019-04-02 08:53] VITALS: BP 102/49
== END 2019-04-02 08:57 | disposition home or self-care (01) ==
LOC: EDUNIT# 07:06 → ER FS 07:07
DX: N39.0 Urinary tract infection, site not specified (principal); N89.8 Other specified noninflammatory disorders of vagina; F17.210 Nicotine dependence, cigarettes, uncomplicated; Z98.51 Tubal ligation status
CPT/HCPCS: 36415; 80053; 80306; 81000; 84703; 85007; 85027; 87077; 87088; 87186; 87491; 87591

== ENCOUNTER 2019-04-23 15:08 | Emergency (ER) | payer MEDICAID, OTHER ==
[~2019-04-23] VITALS: Ht 154 cm; Wt 46.1 kg
[~2019-04-23 15:08] MED LIST changes: +DOXY100T2 PO; +PHEN-640 PO; +SULF1TAB35 PO
--- NOTE | 2019-04-23 15:16 | ED General ---
General Stated Complaint: BODY ACHES,VOMITING,FEVER History of Present Illness Date Seen by Provider: Apr 23, 2019 Time Seen by Provider: 15:16 Initial Comments Patient is a 23-year-old female who comes to the emergency department complaining of flu-like symptoms. She became ill over the last 24 hours. She has body aches, chills, fever. Nonproductive cough. She has known exposure. Her daughter was diagnosed with influenza B last week and this emergency department. She also presents with her younger son who also has similar symptoms. Allergies and Home Medications Allergies Coded Allergies: No Known Drug Allergies (Unverified , 11/17/17) Home Medications Doxycycline Hyclate 100 Mg Tablet, 100 MG PO BID Prescribed by: GUILLE MCKEON on 04/02/19832 Meloxicam 15 Mg Tablet, 15 MG PO DAILY Prescribed by: KAROLINE MALONEY on 01/28/19 0000 Phenazopyridine HCl 200 Mg Tablet, 1 TAB PO QID Prescribed by: GUILLE MCKEON on 04/02/19832 Sulfamethoxazole/Trimethoprim 1 Each Tablet, 1 EACH PO BID Prescribed by: GUILLE MCKEON on 04/02/19832 Patient Home Medication List Home Medication List Reviewed: Yes Review of Systems Review of Systems Constitutional: chills EENTM: see HPI Respiratory: no symptoms reported Cardiovascular: no symptoms reported Gastrointestinal: no symptoms reported Musculoskeletal: see HPI Skin: no symptoms reported All Other Systems Reviewed Negative Unless Noted: Yes Past Udzdzbx-Vxfasx-Cuxlvk Hx Patient Social History Drug of Choice: marijuana Type Used: Cigarettes 2nd Hand Smoke Exposure: Yes Recent Hopitalizations: No Immunizations Up To Date Tetanus Booster (TDap): Less than 5yrs Seasonal Allergies Seasonal Allergies: Yes Past Medical History Surgeries: Yes Section, Tubal Ligation Respiratory: Yes Asthma Cardiac: No Neurological: Yes Seizure Disorder Reproductive Disorders: No Female Reproductive Disorders: Denies 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 0.0oz. 59.633833mr; 19.00 BMI Method:Stated General Appearance: No Apparent Distress, WD/WN HEENT: TMs Normal, Normal ENT Inspection Neck: Full Range of Motion, Supple Respiratory: Chest Non Tender, Lungs Clear Cardiovascular: Regular Rate, Rhythm Rectal: Normal Exam Extremity: Normal Capillary Refill Neurologic/Psychiatric: Alert, Oriented x3 Skin: Normal Color, Warm/Dry Progress/Results/Core Measures Suspected Sepsis SIRS Temperature: Pulse: Respiratory Rate: Blood Pressure / Mean: Results/Orders Vital Signs/I&O Capillary Refill : Progress Note : Time: 15:32 Progress Note Patient is seen in the ER for flue-like symptoms. Overall, she is nontoxic appearing. She is mildly febrile during the ER course. She has no nausea or vomiting. No abdominal pain. Patient has known, confirmed exposure to influenza. In the ER, she has clear lungs and no increased work of breathing. Plan is for discharge home. She will be empirically placed on xofluza. She is also provided a prescription for Tamiflu for use only in the event that the primary medication is not covered by her insurance. Otherwise, Kory and Omi Payne. I encouraged her to use [id number] medication for symptom relief and rest at home. Departure Impression Primary Impression: Influenza Disposition: HOME, SELF-CARE Condition: Stable Departure-Patient Inst. Referrals: NO,LOCAL PHYSICIAN (PCP/Family) Primary Care Physician HANDY JOHNSON DO Apr 23, 2019 15:16
[2019-04-23] MEDS ORDERED: BALO40TA PO (15:36)
[2019-04-23] MEDS ORDERED: OSLT75C PO (15:37)
[2019-04-23] MEDS ORDERED: IBUP-1780 PO (15:38)
[2019-04-23] MEDS ORDERED: BENZ100C18 PO (15:38)
[2019-04-23 15:52] VITALS: BP 113/58
== END 2019-04-23 15:52 | disposition home or self-care (01) ==
LOC: EDUNIT# 15:08 → ER FS 15:09
DX: J11.1 Influenza due to unidentified influenza virus with other respiratory manifestations (principal); Z77.22 Contact with and (suspected) exposure to environmental tobacco smoke (acute) (chronic)
CPT/HCPCS: 99282

== ENCOUNTER 2019-04-26 16:25 | Emergency (ER) | payer MEDICAID ==
[~2019-04-26] VITALS: Ht 154.9 cm; Wt 45.2 kg
[~2019-04-26 16:25] MED LIST changes: +BALO40TA PO; +BENZ100C18 PO; +IBUP-1780 PO; +OSLT75C PO
--- NOTE | 2019-04-26 16:49 | ED Cough/URI ---
General Chief Complaint: Cough/Cold/Flu Symptoms Stated Complaint: FLU Source: patient Exam Limitations: no limitations History of Present Illness Date Seen by Provider: Apr 26, 2019 Time Seen by Provider: 16:35 Initial Comments The patient is a 23-year-old female who presents for evaluation of flulike symptoms and is requesting a work note. She was recently diagnosed with influenza and was prescribed Tamiflu. She has been doing okay but still having intermittent fevers. Her work note excused her through today but she does not feel good enough to go back to work and is still having fevers. 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 She has no other complaints at this time. Severity/Quality: dry cough Associated Symptoms: fever/chills, nasal congestion Allergies and Home Medications Allergies Coded Allergies: No Known Drug Allergies (Unverified , 11/17/17) Home Medications Baloxavir Marboxil 40 Mg Tablet, 80 MG PO ONCE Prescribed by: HANDY JOHNSON on 04/23/19 1536 Benzonatate 100 Mg Capsule, 200 MG PO TID PRN for COUGH Prescribed by: HANDY JOHNSON on 04/23/19 1538 Doxycycline Hyclate 100 Mg Tablet, 100 MG PO BID Prescribed by: GUILLE MCKEON on 04/02/19 0833 Ibuprofen 800 Mg Tablet, 800 MG PO Q8H PRN for PAIN Prescribed by: HANDY JOHNSON on 04/23/19 1538 Meloxicam 15 Mg Tablet, 15 MG PO DAILY Prescribed by: KAROLINE MALONEY on 01/28/19 0000 Oseltamivir Phosphate 75 Mg Cap, 75 MG PO BID Prescribed by: HANDY JOHNSON on 04/23/19 1537 Phenazopyridine HCl 200 Mg Tablet, 1 TAB PO QID Prescribed by: GUILLE MCKEON on 04/02/19 0833 Sulfamethoxazole/Trimethoprim 1 Each Tablet, 1 EACH PO BID Prescribed by: GUILLE MCKEON on 04/02/19 0833 Patient Home Medication List Home Medication List Reviewed: Yes Review of Systems Review of Systems Constitutional: chills, fever EENTM: nose congestion Respiratory: cough Cardiovascular: no symptoms reported Gastrointestinal: no symptoms reported Genitourinary: no symptoms reported : No Musculoskeletal: no symptoms reported Skin: no symptoms reported Psychiatric/Neurological: No Symptoms Reported Hematologic/Lymphatic: No Symptoms Reported Immunological/Allergic: no symptoms reported All Other Systems Reviewed Negative Unless Noted: Yes Past Wtbjchq-Pvqgdb-Eclqpj Hx Patient Social History Drug of Choice: marijuana Type Used: Cigarettes 2nd Hand Smoke Exposure: Yes Recent Foreign Travel: No Contact w/Someone Who Travel: No Recent Hopitalizations: No Immunizations Up To Date Tetanus Booster (TDap): Less than 5yrs Seasonal Allergies Seasonal Allergies: Yes Past Medical History Surgeries: Yes Section, Tubal Ligation Respiratory: Yes Asthma Cardiac: No Neurological: Yes Seizure Disorder Reproductive Disorders: No Female Reproductive Disorders: Denies 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 0.0oz. 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 Advise continuing to take her Tamiflu, Tylenol and/or ibuprofen for fevers and pain, and to drink plenty of fluids at home. Advised her to follow up with her PCP in the next 2-3 days and to return to the emergency Department immediately for new or worsening symptoms. Departure Impression Primary Impression: Influenza Disposition: 01 HOME, SELF-CARE Condition: Stable Departure-Patient Inst. Decision time for Depature: 16:49 Referrals: NO,LOCAL PHYSICIAN (PCP/Family) Primary Care Physician Patient Instructions: Flu, Adult (DC) Add. Discharge Instructions: Continue to take the previously prescribed Tamiflu as well as acetaminophen or ibuprofen at home for fever and/or pain relief. Drink plenty of fluids to stay well hydrated. Follow-up with your doctor in the next 1-2 days. Return to the emergency Department immediately for new or worsening symptoms. Do not return to work until your fever and symptom free for at least 24 hours. Work/School Note: Work Release Form Date Seen in the Emergency Department: Apr 26, 2019 Return to Work: Apr 29, 2019 Restrictions: Return-No Fever (24hrs) TERRENCE DOW DO Apr 26, 2019 16:49
[2019-04-26 16:55] VITALS: BP 101/65
== END 2019-04-26 16:55 | disposition home or self-care (01) ==
LOC: EDUNIT# 16:25 → ER FS 16:26
DX: J11.1 Influenza due to unidentified influenza virus with other respiratory manifestations (principal); J45.909 Unspecified asthma, uncomplicated; Z77.22 Contact with and (suspected) exposure to environmental tobacco smoke (acute) (chronic); Z98.51 Tubal ligation status
CPT/HCPCS: 99282

== ENCOUNTER 2019-06-30 21:30 | Emergency (ER) | payer MEDICAID ==
[~2019-06-30] VITALS: Ht 154.9 cm; Wt 49.1 kg
[2019-06-30 21:35] VITALS: BP 110/49
--- OUTSIDE RECORDS SUMMARY | 2019-06-30 21:36 | XMS REPORT | Continuity of Care Document ---
Author Organization Unknown Address Unknown Phone Unavailable Allergies Active Description Code Type Severity Reaction Onset Reported/Identified Relationship to Patient Clinical Status Yes No Known Drug Allergies [id number] Drug Allergy Unknown N/A 11/17/2017 Medications There is no data. Problems Date Dx Coded Attending Type Code Diagnosis Diagnosed By 11/17/2017 GIFTY KOVACS DO C Ot O09.2 13 SUPRVSN OF PREG W HISTORY OF PRE-TERM LA 11/17/2017 GIFTY KOVACS DO C Ot O60.0 3 LABOR WITHOUT DELIVERY, THIRD TR 11/17/2017 GIFTY KOVACS DO C Ot Z3A.2 8 28 WEEKS GESTATION OF 12/01/2017 DRE HENDRIX MD Ot O47.03 FALSE LABOR BEFORE 37 COMPLETED WEEKS OF 12/01/2017 DRE HENDRIX MD Ot Z3A.32 32 WEEKS GESTATION OF 12/06/2017 DRE HENDRIX MD Ot O47.03 FALSE LABOR BEFORE 37 COMPLETED WEEKS OF 12/06/2017 DRE HENDRIX MD Ot Z3A.32 32 WEEKS GESTATION OF 12/06/2017 DRE HENDRIX MD Ot O47.03 FALSE LABOR BEFORE 37 COMPLETED WEEKS OF 12/06/2017 DRE HENDRIX MD Ot Z3A.32 32 WEEKS GESTATION OF 12/10/2017 JILLIAN KOVACS DOA C Ot O09.2 13 SUPRVSN OF PREG W HISTORY OF PRE-TERM LA 12/10/2017 GIFTY KOVACS DO C Ot O60.0 3 LABOR WITHOUT DELIVERY, THIRD TR 12/10/2017 GIFTY KOVACS DO C Ot Z3A.2 8 28 WEEKS GESTATION OF 12/17/2017 GIFTY KOVACS DO C Ot O47.0 3 FALSE LABOR BEFORE 37 COMPLETED WEEKS OF 12/17/2017 GIFTY KOVACS DO C Ot O99.8 9 OTH DISEASES AND CONDITIONS COMPL PREG/C 12/17/2017 GIFTY KOVACS DO Ot R10.2 PELVIC AND PERINEAL PAIN 12/17/2017 GIFTY KOVACS DO Ot Z3A.3 3 33 WEEKS GESTATION OF 01/01/2018 GIFTY KOVACS DO Ot O9A.2 13 INJ/POISN/OTH CONSEQ OF EXTERNAL CAUSES 01/01/2018 KOVACS DO GIFTY C Ot S89.92XA UNSPECIFIED INJURY OF LEFT LOWER LEG, IN 01/01/2018 BETHANIE GIFTY CASTILLO Ot W19.XXXA UNSPECIFIED FALL, INITIAL ENCOUNTER 01/01/2018 KAROLINE MALONEY DO Ot D64.9 ANEMIA, UNSPECIFIED 01/01/2018 KAROLINE MALONEY DO Ot F17.210 NICOTINE DEPENDENCE, CIGARETTES, UNCOMPL 01/01/2018 KAROLINE MALONEY DO Ot F31.9 BIPOLAR DISORDER, UNSPECIFIED 01/01/2018 KAROLINE MALONEY DO Ot F41.9 ANXIETY DISORDER, UNSPECIFIED 01/01/2018 KAROLINE MALONEY DO Ot F43.10 POST-TRAUMATIC STRESS DISORDER, UNSPECIF 01/01/2018 KAROLINE MALONEY DO Ot G40.909 EPILEPSY, UNSP, NOT INTRACTABLE, WITHOUT 01/01/2018 KAROLINE MALONEY DO Ot J45.909 UNSPECIFIED ASTHMA, UNCOMPLICATED 01/01/2018 KAROLINE MALONEY DO Ot O99.013 ANEMIA COMPLICATING , THIRD TRI 01/01/2018 KAROLINE MALONEY DO Ot O99.333 SMOKING (TOBACCO) COMPLICATING 01/01/2018 KAROLINE MALONEY DO Ot O99.343 OTH MENTAL DISORDERS COMPLICATING PREGNA 01/01/2018 KAROLINE MALONEY DO Ot O99.353 DISEASES OF THE NERVOUS SYS COMP PREGNAN 01/01/2018 KAROLINE MALONEY DO Ot O99.513 DISEASES OF THE RESP SYS COMP , 01/01/2018 KAROLINE MALONEY DO Ot O9A.213 INJ/POISN/OTH CONSEQ OF EXTERNAL CAUSES 01/01/2018 KAROLINE MALONEY DO Ot S80.02X A CONTUSION OF LEFT KNEE, INITIAL ENCOUNTE 01/01/2018 KAROLINE MALONEY DO Ot W10.9XX A FALL (ON) (FROM) UNSPECIFIED STAIRS AND 01/01/2018 AMARA KAROLINE Joey Ot Z98.890 OTHER SPECIFIED POSTPROCEDURAL STATES 01/04/2018 AMARA CASTILLO KAROLINE K Ot D64.9 ANEMIA, UNSPECIFIED 01/04/2018 AMARA KAROLINE K Ot F17.210 NICOTINE DEPENDENCE, CIGARETTES, UNCOMPL 01/04/2018 AMARA CASTILLO KAROLINE K Ot F31.9 BIPOLAR DISORDER, UNSPECIFIED 01/04/2018 AMARA KAROLINE K Ot F41.9 ANXIETY DISORDER, UNSPECIFIED 01/04/2018 AMARA KAROLINE K Ot F43.10 POST-TRAUMATIC STRESS DISORDER, UNSPECIF 01/04/2018 AAMRA KAROLINE K Ot G40.909 EPILEPSY, UNSP, NOT INTRACTABLE, WITHOUT 01/04/2018 AMARA KAROLINE K Ot J45.909 UNSPECIFIED ASTHMA, UNCOMPLICATED 01/04/2018 AMARA KAROLINE K Ot O99.013 ANEMIA COMPLICATING , THIRD TRI 01/04/2018 AMARA KAROLINE K Ot O99.333 SMOKING (TOBACCO) COMPLICATING 01/04/2018 AMARA KAROLINE K Ot O99.343 OTH MENTAL DISORDERS COMPLICATING PREGNA 01/04/2018 AMARA KAROLINE K Ot O99.353 DISEASES OF THE NERVOUS SYS COMP PREGNAN 01/04/2018 AMARA KAROLINE K Ot O99.513 DISEASES OF THE RESP SYS COMP , 01/04/2018 AMARA KAROLINE K Ot O9A.213 INJ/POISN/OTH CONSEQ OF EXTERNAL CAUSES 01/04/2018 AMARA KAROLINE K Ot S80.02X A CONTUSION OF LEFT KNEE, INITIAL ENCOUNTE 01/04/2018 AMARA CASTILLO KAROLINE K Ot W10.9XX A FALL (ON) (FROM) UNSPECIFIED STAIRS AND 01/04/2018 AMARA CASTILLO KAROLINE K Ot Z98.890 OTHER SPECIFIED POSTPROCEDURAL STATES 01/05/2018 LETTY HELM MD Ot D64. 9 ANEMIA, UNSPECIFIED 01/05/2018 LETTY HELM MD Ot F31. 9 BIPOLAR DISORDER, UNSPECIFIED 01/05/2018 LETTY HELM MD Ot F41. 9 ANXIETY DISORDER, UNSPECIFIED 01/05/2018 LETTY HELM MD Ot F43. 10 POST-TRAUMATIC STRESS DISORDER, UNSPECIF 01/05/2018 LETTY HELM MD Ot G40.909 EPILEPSY, UNSP, NOT INTRACTABLE, WITHOUT 01/05/2018 LETTY HELM MD Ot J45.909 UNSPECIFIED ASTHMA, UNCOMPLICATED 01/05/2018 LETTY HELM MD Ot S83.92XA SPRAIN OF UNSPECIFIED SITE OF LEFT KNEE, 01/05/2018 LETTY HELM MD Ot W19.XXXA UNSPECIFIED FALL, INITIAL ENCOUNTER 01/05/2018 LETTY HELM MD Ot Z77. 22 CNTCT W AND EXPSR TO ENVIRON TOBACCO SMO 01/05/2018 LETTY HELM MD Ot Z98.890 OTHER SPECIFIED POSTPROCEDURAL STATES 01/07/2018 LETTY HELM MD Ot D64. 9 ANEMIA, UNSPECIFIED 01/07/2018 LETTY HELM MD Ot F31. 9 BIPOLAR DISORDER, UNSPECIFIED 01/07/2018 LETTY HELM MD Ot F41. 9 ANXIETY DISORDER, UNSPECIFIED 01/07/2018 LETTY HELM MD Ot F43. 10 POST-TRAUMATIC STRESS DISORDER, UNSPECIF 01/07/2018 LETTY HELM MD Ot G40.909 EPILEPSY, UNSP, NOT INTRACTABLE, WITHOUT 01/07/2018 LETTY HELM MD Ot J45.909 UNSPECIFIED ASTHMA, UNCOMPLICATED 01/07/2018 LETTY HELM MD Ot S83.92XA SPRAIN OF UNSPECIFIED SITE OF LEFT KNEE, 01/07/2018 LETTY HELM MD Ot W19.XXXA UNSPECIFIED FALL, INITIAL ENCOUNTER 01/07/2018 LETTY HELM MD Ot Z77. 22 CNTCT W AND EXPSR TO ENVIRON TOBACCO SMO 01/07/2018 LETTY HELM MD Ot Z98.890 OTHER SPECIFIED POSTPROCEDURAL STATES 01/10/[address] DO Ot D6 2 ACUTE POSTHEMORRHAGIC ANEMIA 01/10/[address] DO Ot F32.9 MAJOR DEPRESSIVE DISORDER, SINGLE EPISOD 01/10/[address] DO Ot F41.9 ANXIETY DISORDER, UNSPECIFIED 01/10/[address] DO Ot O34.211 MATERN CARE FOR LOW TRANSVERSE SCAR FROM 01/10/[address] DO Ot O45.93 PREMATURE SEPARATION OF PLACENTA, UNSP, 01/10/[address] DO Ot O60.14X0 LABOR THIRD TRI W DELIVE 01/10/[address] DO Ot O90.81 ANEMIA OF THE PUERPERIUM 01/10/[address] DO Ot O99.344 OTHER MENTAL DISORDERS COMPLICATING CHIL 01/10/[address] DO Ot O99.824 STREPTOCOCCUS B CARRIER STATE COMPLICATI 01/10/[address] DO Ot Z37.0 SINGLE LIVE 01/10/[address] DO Ot Z3A.36 36 WEEKS GESTATION OF 01/10/[address] DO Ot Z80.41 FAMILY HISTORY OF MALIGNANT NEOPLASM OF 01/19/2018 BETHANIE CASTILLOGIFTY Ot O9A.2 13 INJ/POISN/OTH CONSEQ OF EXTERNAL CAUSES 01/19/2018 BETHANIE CASTILLOGIFTY Ot S89.92XA UNSPECIFIED INJURY OF LEFT LOWER LEG, IN 01/19/2018 BETHANIE CASTILLOGIFTY Ot W19.XXXA UNSPECIFIED FALL, INITIAL ENCOUNTER 01/19/2018 KOVACS GIFTY Ot O9A.2 13 INJ/POISN/OTH CONSEQ OF EXTERNAL CAUSES 01/19/2018 BETHANIE CASTILLOGIFTY Ot S89.92XA UNSPECIFIED INJURY OF LEFT LOWER LEG, IN 01/19/2018 BETHANIE CASTILLOGIFTY Ot W19.XXXA UNSPECIFIED FALL, INITIAL ENCOUNTER 04/05/2018 GIFTY KOAVCS DO Ot O09.2 13 SUPRVSN OF PREG W HISTORY OF PRE-TERM LA 04/05/2018 GIFTY KOVACS DO Ot O60.0 3 LABOR WITHOUT DELIVERY, THIRD TR 04/05/2018 GIFTY KOVACS DO Ot Z3A.2 8 28 WEEKS GESTATION OF 04/05/2018 GIFTY KOVACS DO Ot O47.0 3 FALSE LABOR BEFORE 37 COMPLETED WEEKS OF 04/05/2018 GIFTY KOVACS DO Ot O99.8 9 OTH DISEASES AND CONDITIONS COMPL PREG/C 04/05/2018 GIFTY KOVACS DO Ot R10.2 PELVIC AND PERINEAL PAIN 04/05/2018 GIFTY KOVACS DO Ot Z3A.3 3 33 WEEKS GESTATION OF 11/27/2018 ELIZABETH HANDY CASTILLO Ot D64 .9 ANEMIA, UNSPECIFIED 11/27/2018 ELIZABETH HANDY CASTILLO Ot F31 .9 BIPOLAR DISORDER, UNSPECIFIED 11/27/2018 JOHNSON HANDY CASTILLO Ot F41 .9 ANXIETY DISORDER, UNSPECIFIED 11/27/2018 JOHNSON HANDY CASTILLO Ot F43.10 POST-TRAUMATIC STRESS DISORDER, UNSPECIF 11/27/2018 JOHNSON HANDY CASTILLO Ot G40.909 EPILEPSY, UNSP, NOT INTRACTABLE, WITHOUT 11/27/2018 JOHNSON HANDY CASTILLO Ot J45.909 UNSPECIFIED ASTHMA, UNCOMPLICATED 11/27/2018 JOHNSON HANDY CASTILLO Ot M79.645 PAIN IN LEFT FINGER(S) 11/27/2018 JOHNSON HANDY CASTILLO Ot S60.222A CONTUSION OF LEFT HAND, INITIAL ENCOUNTE 11/27/2018 HANDY JOHNSON DO Ot W23.1XXA CAUGHT, CRUSH, JAMMED, OR PINCHED BETW S 11/27/2018 JOHNSON HANDY CASTILLO Ot Z77.22 CNTCT W AND EXPSR TO ENVIRON TOBACCO SMO 11/30/2018 JOHNSON HANDY CASTILLO Ot D64 .9 ANEMIA, UNSPECIFIED 11/30/2018 JOHNSON HANDY CASTILLO Ot F31 .9 BIPOLAR DISORDER, UNSPECIFIED 11/30/2018 JOHNSON HANDY CASTILLO Ot F41 .9 ANXIETY DISORDER, UNSPECIFIED 11/30/2018 JOHNSON HANDY CASTILLO Ot F43.10 POST-TRAUMATIC STRESS DISORDER, UNSPECIF 11/30/2018 JOHNSON HANDY CASTILLO Ot G40.909 EPILEPSY, UNSP, NOT INTRACTABLE, WITHOUT 11/30/2018 JOHNSON HANDY CASTILLO Ot J45.909 UNSPECIFIED ASTHMA, UNCOMPLICATED 11/30/2018 HANDY JOHNSON DO Ot M79.645 PAIN IN LEFT FINGER(S) 11/30/2018 HANDY JOHNSON DO Ot S60.222A CONTUSION OF LEFT HAND, INITIAL ENCOUNTE 11/30/2018 HANDY JOHNSON DO Ot W23.1XXA CAUGHT, CRUSH, JAMMED, OR PINCHED BETW S 11/30/2018 HANDY JOHNSON DO Ot Z77.22 CNTCT W AND EXPSR TO ENVIRON TOBACCO SMO 12/04/2018 ERIK ARREAGA MD, Ot D64.9 ANEMIA, UNSPECIFIED 12/04/2018 ERIK ARREAGA MD Ot F17.210 NICOTINE DEPENDENCE, CIGARETTES, UNCOMPL 12/04/2018 ERIK ARREAGA MD, Ot F31.9 BIPOLAR DISORDER, UNSPECIFIED 12/04/2018 ERIK ARREAGA MD Ot F41.9 ANXIETY DISORDER, UNSPECIFIED 12/04/2018 ERIK ARREAGA MD Ot F43.10 POST-TRAUMATIC STRESS DISORDER, UNSPECIF 12/04/2018 ERIK ARREAGA MD Ot G40.909 EPILEPSY, UNSP, NOT INTRACTABLE, WITHOUT 12/04/2018 ERIK ARREAGA MD Ot J45.909 UNSPECIFIED ASTHMA, UNCOMPLICATED 12/04/2018 ERIK ARREAGA MD Ot M79.645 PAIN IN LEFT FINGER(S) 12/04/2018 ERIK ARREAGA MD Ot S60.052D CONTUSION OF LEFT LITTLE FINGER W/O CARLOS 12/04/2018 ERIK ARREAGA MD Ot W22.8XXD STRIKING AGAINST OR STRUCK BY OTHER OBJE 12/06/2018 ERIK ARREAGA MD, Ot D64.9 ANEMIA, UNSPECIFIED 12/06/2018 ERIK ARREAGA MD Ot F17.210 NICOTINE DEPENDENCE, CIGARETTES, UNCOMPL 12/06/2018 ERIK ARREAGA MD Ot F31.9 BIPOLAR DISORDER, UNSPECIFIED 12/06/2018 ERIK ARREAGA MD Ot F41.9 ANXIETY DISORDER, UNSPECIFIED 12/06/2018 ERIK ARREAGA MD Ot F43.10 POST-TRAUMATIC STRESS DISORDER, UNSPECIF 12/06/2018 ERIK ARREAGA MD Ot G40.909 EPILEPSY, UNSP, NOT INTRACTABLE, WITHOUT 12/06/2018 ERIK ARREAGA MD Ot J45.909 UNSPECIFIED ASTHMA, UNCOMPLICATED 12/06/2018 ERIK ARREAGA MD Ot M79.645 PAIN IN LEFT FINGER(S) 12/06/2018 ERIK ARREAGA MD Ot S60.052D CONTUSION OF LEFT LITTLE FINGER W/O CARLOS 12/06/2018 ERIK ARREAGA MD Ot W22.8XXD STRIKING AGAINST OR STRUCK BY OTHER OBJE 12/14/2018 LYLE DO, BEULAH Ot D64.9 ANEMIA, UNSPECIFIED 12/14/2018 LYLE DO, BEULAH Ot F17.210 NICOTINE DEPENDENCE, CIGARETTES, UNCOMPL 12/14/2018 LYLE DO, BEULAH Ot F31.9 BIPOLAR DISORDER, UNSPECIFIED 12/14/2018 LYLE DO, BEULAH Ot F41.9 ANXIETY DISORDER, UNSPECIFIED 12/14/2018 LYLE DO, BEULAH Ot F43.10 POST- TRAUMATIC STRESS DISORDER, UNSPECIF 12/14/2018 LYLE DO, BEULAH Ot G40.909 EPILEPSY, UNSP, NOT INTRACTABLE, WITHOUT 12/14/2018 LYLE DO, BEULAH Ot J45.909 UNSPECIFIED ASTHMA, UNCOMPLICATED 12/14/2018 LYLE DO, BEULAH Ot R09.89 OTH SYMPTOMS AND SIGNS INVOLVING THE CIR 12/20/2018 LYLE DO, BEULAH Ot D64.9 ANEMIA, UNSPECIFIED 12/20/2018 LYLE DO, BEULAH Ot F17.210 NICOTINE DEPENDENCE, CIGARETTES, UNCOMPL 12/20/2018 LYLE DO, BEULAH Ot F31.9 BIPOLAR DISORDER, UNSPECIFIED 12/20/2018 LYLE DO, BEULAH Ot F41.9 ANXIETY DISORDER, UNSPECIFIED 12/20/2018 LYLE DO, BEULAH Ot F43.10 POST- TRAUMATIC STRESS DISORDER, UNSPECIF 12/20/2018 LYLE DO, BEULAH Ot G40.909 EPILEPSY, UNSP, NOT INTRACTABLE, WITHOUT 12/20/2018 LYLE DO, BEULAH Ot J45.909 UNSPECIFIED ASTHMA, UNCOMPLICATED 12/20/2018 LYLE DO, BEULAH Ot R09.89 OTH SYMPTOMS AND SIGNS INVOLVING THE CIR 01/28/2019 AMARA DO, KAROLINE K Ot D64.9 ANEMIA, UNSPECIFIED 01/28/2019 AMARA DO, KAROLINE K Ot F17.210 NICOTINE DEPENDENCE, CIGARETTES, UNCOMPL 01/28/2019 AMARA DO, KAROLINE K Ot F31.9 BIPOLAR DISORDER, UNSPECIFIED 01/28/2019 AMARA DO, KAROLINE K Ot F41.9 ANXIETY DISORDER, UNSPECIFIED 01/28/2019 AMARA DO, KAROLINE K Ot F43.10 POST-TRAUMATIC STRESS DISORDER, UNSPECIF 01/28/2019 AMARA DO, KAROLINE K Ot G40.909 EPILEPSY, UNSP, NOT INTRACTABLE, WITHOUT 01/28/2019 [facility].909 UNSPECIFIED ASTHMA, UNCOMPLICATED 01/28/2019 [facility] Ot M79.641 PAIN IN RIGHT HAND 01/28/2019 [facility] Ot S60.221 A CONTUSION OF RIGHT HAND, INITIAL ENCOUNT 01/28/2019 AMARA DOKAROLINE Ot S63.601 A UNSPECIFIED SPRAIN OF RIGHT THUMB, INITI 01/28/2019 AMARA KAROLINE CASTILLO Ot V00.121 A FALL FROM NON-IN-LINE ROLLER-SKATES, INI 01/28/2019 KAROLINE MALONEY DO Ot Y92.[address] 01/28/2019 AMARA KAROLINE CASTILLO Ot Z98.51 TUBAL LIGATION STATUS 01/31/2019 AMARA KAROLINE CASTILLO Ot D64.9 ANEMIA, UNSPECIFIED 01/31/2019 [facility] F17.210 NICOTINE DEPENDENCE, CIGARETTES, UNCOMPL 01/31/2019 AMARA KAROLINE CASTILLO Ot F31.9 BIPOLAR DISORDER, UNSPECIFIED 01/31/2019 [facility] F41.9 ANXIETY DISORDER, UNSPECIFIED 01/31/2019 [facility] F43.10 POST-TRAUMATIC STRESS DISORDER, UNSPECIF 01/31/2019 AMARA KAROLINE CASTILLO Ot G40.909 EPILEPSY, UNSP, NOT INTRACTABLE, WITHOUT 01/31/2019 [facility] J45.909 UNSPECIFIED ASTHMA, UNCOMPLICATED 01/31/2019 [facility] M79.641 PAIN IN RIGHT HAND 01/31/2019 AMARA DOKAROLINE Ot S60.221 A CONTUSION OF RIGHT HAND, INITIAL ENCOUNT 01/31/2019 KAROLINE MALONEY DO Ot S63.601 A UNSPECIFIED SPRAIN OF RIGHT THUMB, INITI 01/31/2019 AMARA KAROLINE CASTILLO Ot V00.121 A FALL FROM NON-IN-LINE ROLLER-SKATES, INI 01/31/2019 KAROLINE MALONEY DO Ot Y92.[address] 01/31/2019 KAROLINE MALONEY DO Ot Z98.51 TUBAL LIGATION STATUS 04/02/2019 MERGED WITH [facility], GUILLE Mckenna Ot F17.210 NICOTINE DEPENDENCE, CIGARETTES, UNCOMPL 04/02/2019 MERGED WITH [facility], GUILLE Mckenna Ot N39.0 URINARY TRACT INFECTION, SITE NOT SPECIF 04/02/2019 MERGED WITH [facility], GUILLE Mckenna Ot N89.8 OTHER SPECIFIED NONINFLAMMATORY DISORDER 04/02/2019 MERGED WITH [facility], GUILLE Mckenna Ot R10.32 LEFT LOWER QUADRANT PAIN 04/02/[address] [facility] DO, GUILLE Mckenna Ot Z98.51 TUBAL LIGATION STATUS 04/04/2019 MERGED WITH [facility], GUILLE Mckenna Ot F17.210 NICOTINE DEPENDENCE, CIGARETTES, UNCOMPL 04/04/2019 MERGED WITH [facility], GUILLE Mckenna Ot N39.0 URINARY TRACT INFECTION, SITE NOT SPECIF 04/04/2019 MERGED WITH [facility], GUILLE Mckenna Ot N89.8 OTHER SPECIFIED NONINFLAMMATORY DISORDER 04/04/2019 MERGED WITH [facility], GUILLE H Ot R10.32 LEFT LOWER QUADRANT PAIN 04/04/2019 MERGED WITH [facility], GUILLE H Ot Z98.51 TUBAL LIGATION STATUS 04/23/2019 [facility], HANDY L Ot J11 .1 FLU DUE TO UNIDENTIFIED INFLUENZA VIRUS 04/23/2019 [facility], HANDY L Ot R50 .9 FEVER, UNSPECIFIED 04/23/2019 [facility] DO, HANDY L Ot Z77.22 CNTCT W AND EXPSR TO ENVIRON TOBACCO SMO 04/26/2019 PALOMA OCAMPO DO B Ot J11. 1 FLU DUE TO UNIDENTIFIED INFLUENZA VIRUS 04/26/2019 PALOMA OCAMPO DO B Ot J45.909 UNSPECIFIED ASTHMA, UNCOMPLICATED 04/26/2019 PALOMA OCAMPO DO B Ot R50. 9 FEVER, UNSPECIFIED 04/26/2019 ROMAN OCAMPO DOORD B Ot Z77. 22 CNTCT W AND EXPSR TO ENVIRON TOBACCO SMO 04/26/2019 PALOMA OCAMPO DO B Ot Z98. 51 TUBAL LIGATION STATUS 04/28/2019 [facility], HANDY L Ot J11 .1 FLU DUE TO UNIDENTIFIED INFLUENZA VIRUS 04/28/2019 [facility], HANDY L Ot R50 .9 FEVER, UNSPECIFIED 04/28/2019 [facility], HANDY L Ot Z77.22 CNTCT W AND EXPSR TO ENVIRON TOBACCO SMO 04/28/2019 TERRENCE CASTILLO, PALOMA Martinez Ot J11. 1 FLU DUE TO UNIDENTIFIED INFLUENZA VIRUS 04/28/2019 TERRENCE CASTILLO, PALOMA Martinez Ot J45.909 UNSPECIFIED ASTHMA, UNCOMPLICATED 04/28/2019 TERRENCE CASTILLO, PALOMA Martinez Ot R50. 9 FEVER, UNSPECIFIED 04/28/2019 TERRENCE CASTILLO, PALOMA Martinez Ot Z77. 22 CNTCT W AND EXPSR TO ENVIRON TOBACCO SMO 04/28/2019 TERRENCE CASTILLO PALOMA Martinez Ot Z98. 51 TUBAL LIGATION STATUS 04/30/2019 ELIZABETH DO, HANDY Diaz Ot J11 .1 FLU DUE TO UNIDENTIFIED INFLUENZA VIRUS 04/30/2019 JOHNSON DO, HANDY L Ot R50 .9 FEVER, UNSPECIFIED 04/30/2019 JOHNSON DO, HANDY L Ot Z77.22 CNTCT W AND EXPSR TO ENVIRON TOBACCO [facility] Procedures Code Description Performed By Per formed On [id number] RE SECTION OF BILATERAL FALLOPIAN TUBES, 01/08/2018 [id number] EX TRACTION OF PRODUCTS OF CONCEPTION, LO 01/08/2018 Results Test Result Range Complete urinalysis with reflex to cultu re - 11/17/17 02:00 Urine color determination YELLOW NRG Urine clarity determination CLEAR NR G Urine pH measurement by test strip 7 5-9 Specific gravity of urine by test strip 1.010 1.016-1.022 Urine protein assay by test strip, semi-quantitative NEGATIVE NEGATIVE Urine glucose detection by automated test strip NE GATIVE NEGATIVE Erythrocytes detection in urine sediment by light micr oscopy NEGATIVE NEGATIVE Urine ketones detection by automated test strip NE GATIVE NEGATIVE Urine nitrite detection by test strip NEGATIVE NEGATIVE Urine total bilirubin detection by test strip NEGA TIVE NEGATIVE Urine urobilinogen measurement by automated test strip (mass/volume) NORMAL NORMAL Urine leukocyte esterase detection by dipstick NEG ATIVE NEGATIVE Automated urine sediment erythrocyte cou nt by microscopy (number/high power field) NONE NRG Automated urine sediment leukocyte count by microscopy (number/high power field) NONE NRG Bacteria detection in urine sediment by light microsco py NEGATIVE NRG Squamous epithelial cells detection in u rine sediment by light microscopy 2-5 NRG Crystals detection in urine sediment by light microsco py NONE NRG Casts detection in urine sediment by light microscopy NONE NRG Mucus detection in urine sediment by light microscopy NEGATIVE NRG Complete urinalysis with reflex to culture NO NRG Urine drug screening test - 11/17/17 02: 00 Urine phencyclidine detection by screening method NEGATIVE NEGATIVE Urine benzodiazepines detection by screening method NEGATIVE NEGATIVE Urine cocaine detection NEGATIVE NEGATI VE Urine amphetamines detection by screening method N EGATIVE NEGATIVE Urine methamphetamine detection by screening method NEGATIVE NEGATIVE Urine cannabinoids detection by screening method P OSITIVE NEGATIVE Urine opiates detection by screening method NEGATI VE NEGATIVE Urine barbiturates detection NEGATIVE N EGATIVE Screening urine tricyclic antidepressants detection NEGATIVE NEGATIVE Urine methadone detection by screening method NEGA TIVE NEGATIVE Urine oxycodone detection NEGATIVE NEGA TIVE Urine propoxyphene detection NEGATIVE N EGATIVE Complete blood count (CBC) with automate d white blood cell (WBC) differential - 12/01/17 20:45 Blood leukocytes automated count (number/volume) 12.1 10*3/uL 4.3-11.0 Blood erythrocytes automated count (number/volume) 3.43 10*6/uL 4.35-5.85 Venous blood hemoglobin measurement (mass/volume) 10.7 g/dL 11.5-16.0 Blood hematocrit (volume fraction) 30 % 35-52 Automated erythrocyte mean corpuscular volume 88 [ foz_us] 80-99 Automated erythrocyte mean corpuscular h emoglobin (mass per erythrocyte) 31 pg 25-34 Automated erythrocyte mean corpuscular h emoglobin concentration measurement (mass/volume) 35 g/dL 32-36 Automated erythrocyte distribution width ratio 13. 3 % 10.0- 14.5 Automated blood platelet count (count/volume) 307 10*3/uL 130-400 Automated blood platelet mean volume measurement 8.9 [foz_us] 7.4-10.4 Automated blood neutrophils/100 leukocytes 68 % 42-75 Automated blood lymphocytes/100 leukocytes 23 % 12-44 Blood monocytes/100 leukocytes 7 % 0-12 Automated blood eosinophils/100 leukocytes 2 % 0-10 Automated blood basophils/100 leukocytes 0 % 0-10 Blood neutrophils automated count (number/volume) 8.3 10*3 1.8-7.8 Blood lymphocytes automated count (number/volume) 2.7 10*3 1.0-4.0 Blood monocytes automated count (number/volume) 0. 9 10*3 0.0-1.0 Automated eosinophil count 0.2 10*3/uL 0 .0-0.3 Automated blood basophil count (count/volume) 0.0 10*3/uL 0.0-0.1 Urine drug screening test - 12/01/17 21: 00 Urine phencyclidine detection by screening method NEGATIVE NEGATIVE Urine benzodiazepines detection by screening method NEGATIVE NEGATIVE Urine cocaine detection NEGATIVE NEGATI VE Urine amphetamines detection by screening method N EGATIVE NEGATIVE Urine methamphetamine detection by screening method NEGATIVE NEGATIVE Urine cannabinoids detection by screening method P OSITIVE NEGATIVE Urine opiates detection by screening method NEGATI VE NEGATIVE Urine barbiturates detection NEGATIVE N EGATIVE Screening urine tricyclic antidepressants detection NEGATIVE NEGATIVE Urine methadone detection by screening method NEGA TIVE NEGATIVE Urine oxycodone detection NEGATIVE NEGA TIVE Urine propoxyphene detection NEGATIVE N EGATIVE Complete urinalysis with reflex to cultu re - 12/01/17 21:00 Urine color determination YELLOW NRG Urine clarity determination CLEAR NR G Urine pH measurement by test strip 7 5-9 Specific gravity of urine by test strip 1.005 1.016-1.022 Urine protein assay by test strip, semi-quantitative NEGATIVE NEGATIVE Urine glucose detection by automated test strip NE GATIVE NEGATIVE Erythrocytes detection in urine sediment by light micr oscopy NEGATIVE NEGATIVE Urine ketones detection by automated test strip NE GATIVE NEGATIVE Urine nitrite detection by test strip NEGATIVE NEGATIVE Urine total bilirubin detection by test strip NEGA TIVE NEGATIVE Urine urobilinogen measurement by automated test strip (mass/volume) NORMAL NORMAL Urine leukocyte esterase detection by dipstick NEG ATIVE NEGATIVE Automated urine sediment erythrocyte cou nt by microscopy (number/high power field) NONE NRG Automated urine sediment leukocyte count by microscopy (number/high power field) [HPF] NRG Bacteria detection in urine sediment by light microsco py NEGATIVE NRG Squamous epithelial cells detection in u rine sediment by light microscopy 5-10 NRG Crystals detection in urine sediment by light microsco py NONE NRG Casts detection in urine sediment by light microscopy NONE NRG Mucus detection in urine sediment by light microscopy MODERATE NRG Complete urinalysis with reflex to culture YES NRG Bacterial urine culture - 12/01/17 21:00 Bacterial urine culture NG NRG Complete urinalysis with reflex to cultu re - 12/17/17 16:20 Urine color determination YELLOW NRG Urine clarity determination CLEAR NR G Urine pH measurement by test strip 7 5-9 Specific gravity of urine by test strip 1.005 1.016-1.022 Urine protein assay by test strip, semi-quantitative NEGATIVE NEGATIVE Urine glucose detection by automated test strip NE GATIVE NEGATIVE Erythrocytes detection in urine sediment by light micr oscopy NEGATIVE NEGATIVE Urine ketones detection by automated test strip NE GATIVE NEGATIVE Urine nitrite detection by test strip NEGATIVE NEGATIVE Urine total bilirubin detection by test strip NEGA TIVE NEGATIVE Urine urobilinogen measurement by automated test strip (mass/volume) NORMAL NORMAL Urine leukocyte esterase detection by dipstick 1+ NEGATIVE Automated urine sediment erythrocyte cou nt by microscopy (number/high power field) NONE NRG Automated urine sediment leukocyte count by microscopy (number/high power field) [HPF] NRG Bacteria detection in urine sediment by light microsco py TRACE NRG Squamous epithelial cells detection in u rine sediment by light microscopy 2-5 NRG Crystals detection in urine sediment by light microsco py NONE NRG Casts detection in urine sediment by light microscopy NONE NRG Mucus detection in urine sediment by light microscopy NEGATIVE NRG Complete urinalysis with reflex to culture NO NRG Urine drug screening test - 12/17/17 16: 20 Urine phencyclidine detection by screening method NEGATIVE NEGATIVE Urine benzodiazepines detection by screening method NEGATIVE NEGATIVE Urine cocaine detection NEGATIVE NEGATI VE Urine amphetamines detection by screening method N EGATIVE NEGATIVE Urine methamphetamine detection by screening method NEGATIVE NEGATIVE Urine cannabinoids detection by screening method P OSITIVE NEGATIVE Urine opiates detection by screening method NEGATI VE NEGATIVE Urine barbiturates detection NEGATIVE N EGATIVE Screening urine tricyclic antidepressants detection NEGATIVE NEGATIVE Urine methadone detection by screening method NEGA TIVE NEGATIVE Urine oxycodone detection NEGATIVE NEGA TIVE Urine propoxyphene detection NEGATIVE N EGATIVE Complete blood count (CBC) with automate d white blood cell (WBC) differential - 12/17/17 17:10 Blood leukocytes automated count (number/volume) 10.2 10*3/uL 4.3-11.0 Blood erythrocytes automated count (number/volume) 3.61 10*6/uL 4.35-5.85 Venous blood hemoglobin measurement (mass/volume) 10.6 g/dL 11.5-16.0 Blood hematocrit (volume fraction) 31 % 35-52 Automated erythrocyte mean corpuscular volume 87 [ foz_us] 80-99 Automated erythrocyte mean corpuscular h emoglobin (mass per erythrocyte) 29 pg 25-34 Automated erythrocyte mean corpuscular h emoglobin concentration measurement (mass/volume) 34 g/dL 32-36 Automated erythrocyte distribution width ratio 13. 6 % 10.0- 14.5 Automated blood platelet count (count/volume) 310 10*3/uL 130-400 Automated blood platelet mean volume measurement 8.9 [foz_us] 7.4-10.4 Automated blood neutrophils/100 leukocytes 68 % 42-75 Automated blood lymphocytes/100 leukocytes 21 % 12-44 Blood monocytes/100 leukocytes 9 % 0-12 Automated blood eosinophils/100 leukocytes 3 % 0-10 Automated blood basophils/100 leukocytes 0 % 0-10 Blood neutrophils automated count (number/volume) 6.9 10*3 1.8-7.8 Blood lymphocytes automated count (number/volume) 2.1 10*3 1.0-4.0 Blood monocytes automated count (number/volume) 0. 9 10*3 0.0-1.0 Automated eosinophil count 0.3 10*3/uL 0 .0-0.3 Automated blood basophil count (count/volume) 0.0 10*3/uL 0.0-0.1 Microscopic examination by wet preparati on - 12/17/17 17:10 WET PREP RESULTS NO YEAST OBSERVED, NO TRICH OMONAS OBSERVED NR Complete blood count (CBC) with automate d white blood cell (WBC) differential - 01/08/18 03:10 Blood leukocytes automated count (number/volume) 13.6 10*3/uL 4.3-11.0 Blood erythrocytes automated count (number/volume) 3.77 10*6/uL 4.35-5.85 Venous blood hemoglobin measurement (mass/volume) 11.1 g/dL 11.5-16.0 Blood hematocrit (volume fraction) 33 % 35-52 Automated erythrocyte mean corpuscular volume 88 [ foz_us] 80-99 Automated erythrocyte mean corpuscular h emoglobin (mass per erythrocyte) 29 pg 25-34 Automated erythrocyte mean corpuscular h emoglobin concentration measurement (mass/volume) 34 g/dL 32-36 Automated erythrocyte distribution width ratio 14. 9 % 10.0- 14.5 Automated blood platelet count (count/volume) 293 10*3/uL 130-400 Automated blood platelet mean volume measurement 9.1 [foz_us] 7.4-10.4 Automated blood neutrophils/100 leukocytes 73 % 42-75 Automated blood lymphocytes/100 leukocytes 19 % 12-44 Blood monocytes/100 leukocytes 7 % 0-12 Automated blood eosinophils/100 leukocytes 1 % 0-10 Automated blood basophils/100 leukocytes 0 % 0-10 Blood neutrophils automated count (number/volume) 9.9 10*3 1.8-7.8 Blood lymphocytes automated count (number/volume) 2.6 10*3 1.0-4.0 Blood monocytes automated count (number/volume) 0. 9 10*3 0.0-1.0 Automated eosinophil count 0.2 10*3/uL 0 .0-0.3 Automated blood basophil count (count/volume) 0.0 10*3/uL 0.0-0.1 Blood type T Indirect antibody screen pa renuka - 01/08/18 03:10 ABO+Rh group AN NRG Transfusion band number [id number] NRG Blood group antibody screen POSITIVE NR G Blood group antibodies identified - 05/23 03:10 Blood group antibodies identified D NRG Complete urinalysis with reflex to cultu re - 01/08/18 03:50 Urine color determination YELLOW NRG Urine clarity determination CLEAR NR G Urine pH measurement by test strip 7 5-9 Specific gravity of urine by test strip 1.010 1.016-1.022 Urine protein assay by test strip, semi-quantitative NEGATIVE NEGATIVE Urine glucose detection by automated test strip NE GATIVE NEGATIVE Erythrocytes detection in urine sediment by light micr oscopy 2+ NEGATIVE Urine ketones detection by automated test strip NE GATIVE NEGATIVE Urine nitrite detection by test strip NEGATIVE NEGATIVE Urine total bilirubin detection by test strip NEGA TIVE NEGATIVE Urine urobilinogen measurement by automated test strip (mass/volume) NORMAL NORMAL Urine leukocyte esterase detection by dipstick 1+ NEGATIVE Automated urine sediment erythrocyte cou nt by microscopy (number/high power field) [HPF] NRG Automated urine sediment leukocyte count by microscopy (number/high power field) [HPF] NRG Bacteria detection in urine sediment by light microsco py TRACE NRG Squamous epithelial cells detection in u rine sediment by light microscopy 5-10 NRG Crystals detection in urine sediment by light microsco py NONE NRG Casts detection in urine sediment by light microscopy NONE NRG Mucus detection in urine sediment by light microscopy NEGATIVE NRG Complete urinalysis with reflex to culture NO NRG Urine drug screening test - 01/08/18 03: 50 Urine phencyclidine detection by screening method NEGATIVE NEGATIVE Urine benzodiazepines detection by screening method NEGATIVE NEGATIVE Urine cocaine detection NEGATIVE NEGATI VE Urine amphetamines detection by screening method N EGATIVE NEGATIVE Urine methamphetamine detection by screening method NEGATIVE NEGATIVE Urine cannabinoids detection by screening method N EGATIVE NEGATIVE Urine opiates detection by screening method NEGATI VE NEGATIVE Urine barbiturates detection NEGATIVE N EGATIVE Screening urine tricyclic antidepressants detection NEGATIVE NEGATIVE Urine methadone detection by screening method NEGA TIVE NEGATIVE Urine oxycodone detection NEGATIVE NEGA TIVE Urine propoxyphene detection NEGATIVE N EGATIVE Bacterial urine culture - 01/08/18 03:50 Bacterial urine culture NG NRG Complete blood count (CBC) with automate d white blood cell (WBC) differential - 01/09/18 05:25 Blood leukocytes automated count (number/volume) 12.1 10*3/uL 4.3-11.0 Blood erythrocytes automated count (number/volume) 3.32 10*6/uL 4.35-5.85 Venous blood hemoglobin measurement (mass/volume) 9.5 g/dL 11.5-16.0 Blood hematocrit (volume fraction) 29 % 35-52 Automated erythrocyte mean corpuscular volume 88 [ foz_us] 80-99 Automated erythrocyte mean corpuscular h emoglobin (mass per erythrocyte) 29 pg 25-34 Automated erythrocyte mean corpuscular h emoglobin concentration measurement (mass/volume) 33 g/dL 32-36 Automated erythrocyte distribution width ratio 14. 2 % 10.0- 14.5 Automated blood platelet count (count/volume) 252 10*3/uL 130-400 Automated blood platelet mean volume measurement 9.1 [foz_us] 7.4-10.4 Automated blood neutrophils/100 leukocytes 69 % 42-75 Automated blood lymphocytes/100 leukocytes 22 % 12-44 Blood monocytes/100 leukocytes 8 % 0-12 Automated blood eosinophils/100 leukocytes 1 % 0-10 Automated blood basophils/100 leukocytes 0 % 0-10 Blood neutrophils automated count (number/volume) 8.4 10*3 1.8-7.8 Blood lymphocytes automated count (number/volume) 2.6 10*3 1.0-4.0 Blood monocytes automated count (number/volume) 0. 9 10*3 0.0-1.0 Automated eosinophil count 0.2 10*3/uL 0 .0-0.3 Automated blood basophil count (count/volume) 0.0 10*3/uL 0.0-0.1 Complete urinalysis with reflex to cultu re - 04/02/19 07:11 Urine color determination PALE YELLOW N RG Urine clarity determination CLOUDY NR G Urine pH measurement by test strip 6.0 5-9 Specific gravity of urine by test strip 1.020 1.016-1.022 Urine protein assay by test strip, semi-quantitative 1+ NEGATIVE Urine glucose detection by automated test strip NE GATIVE NEGATIVE Erythrocytes detection in urine sediment by light micr oscopy 2+ NEGATIVE Urine ketones detection by automated test strip NE GATIVE NEGATIVE Urine nitrite detection by test strip NEGATIVE NEGATIVE Urine total bilirubin detection by test strip NEGA TIVE NEGATIVE Urine urobilinogen measurement by automated test strip (mass/volume) 0.2 mg/dL < = 1.0 Urine leukocyte esterase detection by dipstick 3+ NEGATIVE Automated urine sediment erythrocyte cou nt by microscopy (number/high power field) [HPF] NRG Automated urine sediment leukocyte count by microscopy (number/high power field) TNTC NRG Bacteria detection in urine sediment by light microsco py TRACE NRG Squamous epithelial cells detection in u rine sediment by light microscopy 0-2 NRG Crystals detection in urine sediment by light microsco py NONE NRG Casts detection in urine sediment by light microscopy NONE NRG Mucus detection in urine sediment by light microscopy NONE NRG Complete urinalysis with reflex to culture YES NRG Urine drug screening test - 04/02/19 07: 11 Urine phencyclidine detection by screening method NEGATIVE NEGATIVE Urine benzodiazepines detection by screening method NEGATIVE NEGATIVE Urine cocaine detection NEGATIVE NEGATI VE Urine amphetamines detection by screening method N EGATIVE NEGATIVE Urine methamphetamine detection by screening method NEGATIVE NEGATIVE Urine cannabinoids detection by screening method P OSITIVE NEGATIVE Urine opiates detection by screening method NEGATI VE NEGATIVE Urine barbiturates detection NEGATIVE N EGATIVE Screening urine tricyclic antidepressants detection NEGATIVE NEGATIVE Urine methadone detection by screening method NEGA TIVE NEGATIVE Urine oxycodone detection NEGATIVE NEGA TIVE Urine propoxyphene detection NEGATIVE N EGATIVE Bacterial urine culture - 04/02/19 07:11 Bacterial urine culture [id number] NRG COLONY COUNT >100,000/ML NRG FTX;REPORTABLE SUSCEPTIBILITY REPORTED 04/04/19 10: 25 NRG FREE TEXT ENTRY 2 PRELIM RAPID ID BY VCP 04-03-19, 1130 NRG FREE TEXT ENTRY 3 RML CONFIRMED ID 04-03-19, 16:05 NRG Dirithromycin susceptibility test by dis k diffusion - 04/02/19 07:11 Gentamicin susceptibility test by minimum inhibitory c oncentration <= NRG Trimethoprim/sulfamethoxazole susceptibi lity test by minimum inhibitoryconcentration <= NRG Levofloxacin susceptibility test by minimum inhibitory concentration <= NRG Ampicillin susceptibility test by minimum inhibitory c oncentration <= NRG Cefazolin susceptibility test by minimum inhibitory co ncentration <= NRG Ceftriaxone susceptibility test by minimum inhibitory concentration <= NRG Ciprofloxacin susceptibility test by minimum inhibitor y concentration <= NRG Meropenem susceptibility test by minimum inhibitory co ncentration <= NRG Nitrofurantoin susceptibility test by mi nimum inhibitory concentration <= NRG Amoxicillin and clavulanate potassium susc JACK <= NRG Chlamydia DNA amp probe, urine - 0 07:11 Chlamydia DNA amp probe, urine Not Detected Not Detected Urine Neisseria gonorrhoeae DNA assay - 04/02/19 07:11 Gonorrhea amp DNA-urine Not Detected No t Detected Blood CBC with ordered manual differenti al panel - 04/02/19 07:30 Blood leukocytes automated count (number/volume) 8.2 10*3/uL 4.3-11.0 Blood erythrocytes automated count (number/volume) 4.14 10*6/uL 4.35-5.85 Venous blood hemoglobin measurement (mass/volume) 12.1 g/dL 11.5-16.0 Blood hematocrit (volume fraction) 36 % 35-52 Automated erythrocyte mean corpuscular volume 87 [ foz_us] 80-99 Automated erythrocyte mean corpuscular h emoglobin (mass per erythrocyte) 29 pg 25-34 Automated erythrocyte mean corpuscular h emoglobin concentration measurement (mass/volume) 34 g/dL 32-36 Automated erythrocyte distribution width ratio 12. 9 % 10.0- 14.5 Automated blood platelet count (count/volume) 276 10*3/uL 130-400 Automated blood platelet mean volume measurement 8.9 [foz_us] 7.4-10.4 Automated blood neutrophils/100 leukocytes 53 % 42-75 Automated blood lymphocytes/100 leukocytes 38 % 12-44 Blood monocytes/100 leukocytes 7 % NRG Automated blood eosinophils/100 leukocytes 2 % 0-10 Automated blood basophils/100 leukocytes 1 % 0-10 Blood neutrophils automated count (number/volume) 4.3 10*3 1.8-7.8 Blood lymphocytes automated count (number/volume) 3.1 10*3 1.0-4.0 Blood monocytes automated count (number/volume) 0. 6 10*3 0.0-1.0 Automated eosinophil count 0.1 10*3/uL 0 .0-0.3 Automated blood basophil count (count/volume) 0.0 10*3/uL 0.0-0.1 Manual blood segmented neutrophils/100 leukocytes 42 % NRG Blood band neutrophils/100 leukocytes 0 % NRG Manual blood lymphocytes/100 leukocytes 48 % NRG Manual eosinophils/100 leukocytes in nose 3 % NRG Manual blood basophils/100 leukocytes 0 % NRG Comprehensive metabolic panel - 04/02/19 07:30 Serum or plasma sodium measurement (moles/volume) 138 mmol/L 135-145 Serum or plasma potassium measurement (moles/volume) 3.9 mmol/L 3.6-5.0 Serum or plasma chloride measurement (moles/volume) 102 mmol/L 98-107 Carbon dioxide 25 mmol/L 21-32 Serum or plasma anion gap determination (moles/volume) 11 mmol/L 5-14 Serum or plasma urea nitrogen measurement (mass/volume ) 10 mg/dL 7-18 Serum or plasma creatinine measurement (mass/volume) 0.79 mg/dL 0.60-1.30 Serum or plasma urea nitrogen/creatinine mass ratio 13 NRG Serum or plasma creatinine measurement w ith calculation of estimated glomerular filtration rate > NRG Serum or plasma glucose measurement (mass/volume) 96 mg/dL 70-105 Serum or plasma calcium measurement (mass/volume) 9.6 mg/dL 8.5-10.1 Serum or plasma total bilirubin measurement (mass/volu me) 0.2 mg/dL 0.1-1.0 Serum or plasma alkaline phosphatase peng surement (enzymatic activity/volume) 56 U/L 40-136 Serum or plasma aspartate aminotransfera se measurement (enzymatic activity/volume) 10 U/L 5-34 Serum or plasma alanine aminotransferase measurement (enzymatic activity/volume) 5 U/L 0-55 Serum or plasma protein measurement (mass/volume) 6.7 g/dL 6.4-8.2 Serum or plasma albumin measurement (mass/volume) 4.5 g/dL 3.2-4.5 CALCIUM CORRECTED 9.2 mg/dL 8.5-10.1 Encounters ACCT No. Visit Date/Time Discharge Status Pt. Type Provider Facility Loc./Unit Complaint [id number] 06/17/2019 12:50:00 06/17/2019 23:59: 59 [facility] [id number] 04/26/2019 16:26:00 16:55:00 DIS Emergency PALOMA OCAMPO DO [facility] ER FS FLU [id number] 04/23/2019 15:09:00 15:52:00 DIS Emergency HANDY JOHNSON DO [facility] ER FS BODY ACHES,VOMITING,FEV ER [id number] 04/02/2019 07:07:00 08:57:00 DIS Emergency GUILLE MCKEON DO [facility] ER FS ABD PAIN [id number] 01/27/2019 23:13:00 00:10:00 DIS Emergency KAORLINE MALONEY DO [facility] ER RT HAND PAIN [id number] 12/14/2018 11:12:00 11:49:00 DIS Emergency BEULAH LYLE DO [facility] ER FS SINUS PAIN [id number] 12/04/2018 09:44:00 11:28:00 DIS Emergency ERIK ARREAGA MD [facility] ER L HAND PREV INJ /PAIN [id number] 11/27/2018 15:54:00 16:36:00 DIS Emergency HANDY JOHNSON DO [facility] ER FS SWOLLEN PINKY [id number] 01/08/2018 07:48:00 18:04:[address] DO [facility] LDRP BLEEDING,REPEAT CSECTION,CONTRACTIONS [id number] 01/05/2018 01:47:00 02:39:00 DIS Emergency LETTY HELM MD [facility] ER L LEG SWELLING [id number] 01/01/2018 00:49:00 02:17:00 DIS Emergency KAROLINE MALONEY DO [facility] ER LEFT KNEE INJURY-FALL/P T 8 MONTHS PREG [id number] 12/31/2017 23:35:00 00:40:00 DIS Outpatient GIFTY KOVACS DO [facility] WSo LEFT KNEE INJURY [id number] 12/17/2017 16:17:00 19:18:00 DIS Outpatient GIFTY KOVACS DO [facility] WSo CONTRACTIONS [id number] 12/01/2017 20:17:00 018 22:40:00 DIS Outpatient RUMA MAGANA, DRE Farfan [facility] WSo CONTRACTIONS [id number] 11/17/2017 01:55:00 03:10:00 DIS Outpatient GIFTY KOVACS DO [facility] WSo CONTRACTIONS [id number] 06/30/2019 21:32:[address] Emergency KALI PATINO DO [facility] ER FS RT FOOT INJ
[2019-06-30] MEDS ORDERED: TRIM/SULFAMETH 160/800 (SEPTRA DS) TAB PO ONE ×2 (21:42→21:45)
[2019-06-30] MEDS ORDERED: SULF1TAB35 PO (21:46)
--- NOTE | 2019-06-30 21:46 | ED Integumentary General ---
General Chief Complaint: Bite-Animal/Human/Insect Stated Complaint: RT FOOT INJ Nursing Triage Note: Patient states that she got an insect bite to the tip of her right foot 2 days ago. Patient states that it has progressively gotten worse. patient does have a small bite area with redness around it. Minimal swelling is noted. Patient also has a small cut to the bottom of the right foot. Cut is small and asymptomatic. Patient rates her pain at a 7. History of Present Illness Date Seen by Provider: Jun 30, 2019 Time Seen by Provider: 21:44 Initial Comments 2 days ago stepped on something sharp in her front yard (barefoot- right foot), then later that night she felt something bite her right foot. Yesterday she had some itching, but no pain or redness. Today had onset of pain, redness and now swelling. Denies other pain, injury, bite or rash. Denies fever or chills or muscle aches. Allergies and Home Medications Allergies Coded Allergies: No Known Drug Allergies (Unverified , 11/17/17) Home Medications Baloxavir Marboxil 40 Mg Tablet, 80 MG PO ONCE Prescribed by: HANDY JOHNSON on 04/23/19 1536 Benzonatate 100 Mg Capsule, 200 MG PO TID PRN for COUGH Prescribed by: HANDY JOHNSON on 04/23/19 1538 Doxycycline Hyclate 100 Mg Tablet, 100 MG PO BID Prescribed by: GUILLE MCKEON on 04/02/19 0833 Ibuprofen 800 Mg Tablet, 800 MG PO Q8H PRN for PAIN Prescribed by: HANDY JOHNSON on 04/23/19 1538 Meloxicam 15 Mg Tablet, 15 MG PO DAILY Prescribed by: KAROLINE MALONEY on 01/28/19 0000 Oseltamivir Phosphate 75 Mg Cap, 75 MG PO BID Prescribed by: HANDY JOHNSON on 04/23/19 1537 Phenazopyridine HCl 200 Mg Tablet, 1 TAB PO QID Prescribed by: GUILLE MCKEON on 04/02/19 0833 Sulfamethoxazole/Trimethoprim 1 Each Tablet, 1 EACH PO BID Prescribed by: GUILLE MCKEON on 04/02/19 0833 Sulfamethoxazole/Trimethoprim 1 Each Tablet, 1 EACH PO BID Prescribed by: KALI PATINO on 06/30/19 4716 Patient Home Medication List Home Medication List Reviewed: Yes Review of Systems Review of Systems Constitutional: no symptoms reported; No fever, No malaise, No weakness EENTM: no symptoms reported; No hoarseness, No throat pain, No throat swelling Respiratory: No cough, No short of breath Musculoskeletal: No back pain, No joint pain Skin: change in color; No lesions, No lumps; pruritus, rash, other (red and swelling right foot) Past Phsmbsx-Qogvcv-Hgmlby Hx Past Med/Social Hx: Reviewed Nursing Past Med/Soc Hx Patient Social History Alcohol Use: Occasionally Uses Drug of Choice: marijuana Type Used: Cigarettes 2nd Hand Smoke Exposure: Yes Recent Foreign Travel: No Contact w/Someone Who Travel: No Recent Infectious Disease Expo: No Recent Hopitalizations: No Physical Abuse: No Sexual Abuse: No Mistreated: No Fear: No Immunizations Up To Date Tetanus Booster (TDap): Less than 5yrs Seasonal Allergies Seasonal Allergies: Yes Past Medical History Surgeries: Yes Section, Tubal Ligation Respiratory: Yes Asthma Cardiac: No Neurological: Yes Seizure Disorder Reproductive Disorders: No Female Reproductive Disorders: Denies CLINICAL FACULTY History: Tubal Ligation Genitourinary: No Gastrointestinal: No Musculoskeletal: No Endocrine: No HEENT: No Cancer: No Psychosocial: Yes Anxiety, PTSD, Bipolar, Depression Integumentary: No Blood Disorders: Yes (ANEMIA) Physical Exam Vital Signs Vital Signs - First Documented 06/30/19 21:35 Temp 36.9 Pulse 73 Resp 18 B/P (MAP) 110/49 (69) Pulse Ox 98 O2 Delivery Room Air Capillary Refill : Less Than 3 Seconds General Appearance: WD/WN, no apparent distress Extremities: normal range of motion, no pedal edema, normal capillary refill Skin: normal color, warm/dry, other (R foot: erythema, pain and slight edema dorsum distal foot, 3cm area localized around small papule between 3rd & 4th toes. TTP. Otherwise normal foot and NVI.) Progress/Results/Core Measures Results/Orders My Orders Orders - ERICVENSTKALI REYES DO Sulfamethoxazole/Trimet Ds Tab (Bactrim (06/30/19 21:45) Vital Signs/I&O 06/30/19 21:35 Temp 36.9 Pulse 73 Resp 18 B/P (MAP) 110/49 (69) Pulse Ox 98 O2 Delivery Room Air Blood Pressure Mean: 69 Departure Impression Primary Impression: Insect bites Qualified Codes: S90.861A - Insect bite (nonvenomous), right foot, initial encounter; W57.XXXA - Bitten or stung by nonvenomous insect and other nonvenomous arthropods, initial encounter Disposition: 01 HOME, SELF-CARE Condition: Stable Departure-Patient Inst. Decision time for Depature: 21:45 Referrals: NO,LOCAL PHYSICIAN (PCP/Family) Primary Care Physician Patient Instructions: Insect Bites and Stings (DC) Scripts Sulfamethoxazole/Trimethoprim (Bactrim Ds Tablet) 1 Each Tablet 1 EACH PO BID, #14 TAB 0 Refills Prov: KALI PATINO DO 06/30/19 KALI PATINO DO Jun 30, 2019 21:46
[2019-07-01] MEDS ORDERED: [UNRECOGNIZED DRUG - CODE] PO (11:22)
[2019-07-01] MEDS ORDERED: MUPI15CR11 TP (11:22)
[2019-07-01] MEDS ORDERED: CRUT1EAC7 MC (11:28)
== END 2019-06-30 21:52 | disposition home or self-care (01) ==
LOC: EDUNIT# 21:30 → ER FS 21:32
DX: S90.861A Insect bite (nonvenomous), right foot, initial encounter (principal); Z77.22 Contact with and (suspected) exposure to environmental tobacco smoke (acute) (chronic); W57.XXXA Bitten or stung by nonvenomous insect and other nonvenomous arthropods, initial encounter
CPT/HCPCS: 99283

== ENCOUNTER 2019-07-01 10:48 | Emergency (ER) | payer MEDICAID, OTHER ==
[~2019-07-01] VITALS: Ht 152.4 cm; Wt 47.8 kg
--- OUTSIDE RECORDS SUMMARY | 2019-07-01 10:55 | XMS REPORT | Continuity of Care Document ---
Author Organization Unknown Address Unknown Phone Unavailable Allergies Active Description Code Type Severity Reaction Onset Reported/Identified Relationship to Patient Clinical Status Yes No Known Drug Allergies [id number] Drug Allergy Unknown N/A 11/17/2017 Medications There [...] Ot Z3A.32 32 WEEKS GESTATION OF 12/10/2017 JILLAIN KOVACS DOA C Ot O09.2 13 SUPRVSN [...] Ot F43.10 POST-TRAUMATIC STRESS DISORDER, UNSPECIF 01/04/2018 AMARA KAROLINE K Ot G40.909 EPILEPSY, UNSP, NOT [...] W19.XXXA UNSPECIFIED FALL, INITIAL ENCOUNTER 04/05/2018 GIFTY KOVACS DO Ot O09.2 13 SUPRVSN OF PREG [...] AND EXPSR TO ENVIRON TOBACCO SMO 11/30/2018 OJHNSON HANDY CASTILLO Ot D64 .9 ANEMIA, UNSPECIFIED [...] ARREAGA MD, Ot D64.9 ANEMIA, UNSPECIFIED 12/04/2018 REIK ARREAGA MD Ot F17.210 NICOTINE DEPENDENCE, CIGARETTES, [...] G40.909 EPILEPSY, UNSP, NOT INTRACTABLE, WITHOUT [facility]/28[facility].909 UNSPECIFIED ASTHMA, UNCOMPLICATED 01/28/2019 [facility] Ot M79.641 PAIN IN RIGHT HAND 01/28/2019 [facility] Ot S60.221 A CONTUSION OF RIGHT HAND, INITIAL ENCOUNT 01/28/2019 AMARA DOKAROLINE Ot S63.601 A UNSPECIFIED SPRAIN OF RIGHT THUMB, INITI 01/28/2019 AMARA KAROLINE CASTILLO Ot V00.121 A FALL FROM NON-IN-LINE ROLLER-SKATES, INI 01/28/2019 KAROLINE MALONEY DO Ot Y92.[address] 01/28/2019 AMARA KAROLINE CASTILLO Ot Z98.51 TUBAL LIGATION STATUS 01/31/2019 AMARA KAROLINE CASTILLO Ot D64.9 ANEMIA, UNSPECIFIED 01/31/2019 [facility] F17.210 NICOTINE DEPENDENCE, CIGARETTES, UNCOMPL 01/31/2019 AMARA KAROLINE CASTILLO Ot F31.9 BIPOLAR DISORDER, UNSPECIFIED 01/31/2019 [facility] F41.9 ANXIETY DISORDER, UNSPECIFIED 01/31/2019 [facility] Ot F43.10 POST-TRAUMATIC STRESS DISORDER, UNSPECIF 01/31/2019 AMARA KAROLINE CASTILLO Ot G40.909 EPILEPSY, UNSP, NOT INTRACTABLE, WITHOUT 01/31/2019 [facility] Ot J45.909 UNSPECIFIED ASTHMA, UNCOMPLICATED 01/31/2019 [facility] Ot M79.641 PAIN IN RIGHT [...] DO Ot Z98.51 TUBAL LIGATION STATUS 04/02/2019 [facility], GUILLE Mckenna Ot F17.210 NICOTINE DEPENDENCE, CIGARETTES, UNCOMPL 04/02/2019 [facility], GUILLE Mckenna Ot N39.0 URINARY TRACT INFECTION, SITE NOT SPECIF 04/02/2019 [facility], GUILLE Mckenna Ot N89.8 OTHER SPECIFIED NONINFLAMMATORY DISORDER 04/02/2019 [facility], GUILLE Mckenna Ot R10.32 LEFT LOWER QUADRANT PAIN 04/02/2019 [facility], GUILLE Mckenna Ot Z98.51 TUBAL LIGATION STATUS 04/04/2019 [facility], GUILLE Mckenna Ot F17.210 NICOTINE DEPENDENCE, CIGARETTES, UNCOMPL 04/04/2019 [facility], GUILLE Mckenna Ot N39.0 URINARY TRACT INFECTION, SITE NOT SPECIF 04/04/2019 [facility], GUILLE Mckenna Ot N89.8 OTHER SPECIFIED NONINFLAMMATORY DISORDER 04/04/2019 [facility], GUILLE H Ot R10.32 LEFT LOWER QUADRANT PAIN 04/04/2019 [facility], GUILLE H Ot Z98.51 TUBAL LIGATION STATUS 04/23/2019 [facility], HANYD L Ot J11 .1 FLU DUE TO UNIDENTIFIED INFLUENZA VIRUS 04/23/2019 [facility], HANDY L Ot R50 .9 FEVER, UNSPECIFIED 04/23/2019 [facility], HANDY L Ot Z77.22 CNTCT W [...] CNTCT W AND EXPSR TO ENVIRON TOBACCO [facility] Procedures Code Description Performed By Per formed On [id number] RE SECTION OF BILATERAL FALLOPIAN TUBES, 01/08/2018 [id number] EX TRACTION OF PRODUCTS OF CONCEPTION, LO [...] ABO+Rh group AN NRG Transfusion band number [id number] NRG Blood group antibody screen POSITIVE NR [...] culture - 04/02/19 07:11 Bacterial urine culture [id number] NRG COLONY COUNT >100,000/ML NRG FTX;REPORTABLE SUSCEPTIBILITY [...] Status Pt. Type Provider Facility Loc./Unit Complaint [id number] 06/17/2019 12:50:00 06/17/2019 23:59: 59 [facility] Outpatient PIETRO SAKINA [facility] [id number] 06/30/2019 21:32:00 21:52:00 DIS Emergency ERICVENKALI PARHAM DO [facility] ER FS RT FOOT INJ [id number] 04/26/2019 16:26:00 16:55:00 DIS Emergency PALOMA OCAMPO DO [facility] ER FS FLU [id number] 04/23/2019 15:09:00 15:52:00 DIS Emergency HANDY JOHNSON DO [facility] ER FS BODY ACHES,VOMITING,FEV ER [id number] 04/02/2019 07:07:00 08:57:00 DIS Emergency GUILLE MCKEON DO [facility] ER FS ABD PAIN [id number] 01/27/2019 23:13:00 00:10:00 DIS Emergency KAROLINE MALONEY DO [facility] ER RT HAND PAIN [id number] 12/14/2018 11:12:00 11:49:00 DIS Emergency BEULAH LYLE DO [facility] ER FS SINUS PAIN [id number] 12/04/2018 09:44:00 11:28:00 DIS Emergency ERIK ARREAGA MD [facility] ER L HAND PREV INJ /PAIN [id number] 11/27/2018 15:54:00 16:36:00 DIS Emergency HANDY JOHNSON DO [facility] ER FS SWOLLEN PINKY [id number] 01/08/2018 07:48:00 18:04:[address] DO [facility] LDRP BLEEDING,REPEAT CSECTION,CONTRACTIONS [id number] 01/05/2018 01:47:00 02:39:00 DIS Emergency VOLODYMYR MAGANA, LETTY Garay [facility] ER L LEG SWELLING [id number] 01/01/2018 00:49:00 02:17:00 DIS Emergency KAROLINE MALONEY DO Vi [facility] ER LEFT KNEE INJURY-FALL/P T 8 MONTHS PREG [id number] 12/31/2017 23:35:00 00:40:00 DIS Out[facility] [id number] 12/17/2017 16:17:00 018 19:18:00 DIS Outpatient GIFTY KOVACS DO [facility] WSo CONTRACTIONS [id number] 12/01/2017 20:17:00 018 22:40:00 DIS Outpatient RUMA MAGANA, DRE Farfan [facility] WSo CONTRACTIONS [id number] 11/17/2017 01:55:00 018 03:10:00 DIS Outpatient GIFTY KOVACS DO [facility] WSo CONTRACTIONS
[2019-07-01 10:59] VITALS: BP 100/47
--- NOTE | 2019-07-01 11:13 | ED Integumentary General ---
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 There's been no fever chills no IV drug use. Timing/Duration: yesterday Severity: moderate Location: feet Possible Cause: insect bite (?) Modifying Factors: improves with scratching Associated Symptoms: No fever; other (increasing redness and pain) Allergies and Home Medications Allergies Coded Allergies: No Known Drug Allergies (Unverified , 11/17/17) Home Medications Baloxavir Marboxil 40 Mg Tablet, 80 MG PO ONCE Prescribed by: HANDY JOHNSON on 04/23/19 1536 Benzonatate 100 Mg Capsule, 200 MG PO TID PRN for COUGH Prescribed by: HANDY JOHNSON on 04/23/19 1538 Doxycycline Hyclate 100 Mg Tablet, 100 MG PO BID Prescribed by: GUILLE MCKEON on 04/02/19 0833 Ibuprofen 800 Mg Tablet, 800 MG PO Q8H PRN for PAIN Prescribed by: HANDY JOHNSON on 04/23/19 1538 Meloxicam 15 Mg Tablet, 15 MG PO DAILY Prescribed by: KAROLINE MALONEY on 01/28/19 0000 Oseltamivir Phosphate 75 Mg Cap, 75 MG PO BID Prescribed by: HANDY JOHNSON on 04/23/19 1537 Phenazopyridine HCl 200 Mg Tablet, 1 TAB PO QID Prescribed by: GUILLE MCKEON on 04/02/19 0833 Sulfamethoxazole/Trimethoprim 1 Each Tablet, 1 EACH PO BID Prescribed by: GUILLE MCKEON on 04/02/19 0833 Sulfamethoxazole/Trimethoprim 1 Each Tablet, 1 EACH PO BID Prescribed by: KALI PATINO on 06/30/19 5416 Patient Home Medication List Home Medication List Reviewed: Yes Review of Systems Review of Systems Constitutional: no symptoms reported; No fever EENTM: see HPI Respiratory: no symptoms reported Cardiovascular: no symptoms reported Gastrointestinal: no symptoms reported Genitourinary: no symptoms reported : No Musculoskeletal: see HPI Skin: see HPI Psychiatric/Neurological: No Symptoms Reported Endocrine: No Symptoms Reported Past Edjjorb-Dhvjgh-Heksxz Hx Patient Social History Alcohol Use: Denies Use Recreational Drug Use: No Drug of Choice: Marijuana Smoking Status: Current Everyday Smoker Type Used: Cigarettes 2nd Hand Smoke Exposure: Yes Recent Hopitalizations: No Physical Abuse: No Sexual Abuse: No Mistreated: No Fear: No Immunizations Up To Date Tetanus Booster (TDap): Less than 5yrs Seasonal Allergies Seasonal Allergies: Yes Past Medical History Surgeries: Yes Section, Tubal Ligation Respiratory: Yes Asthma Cardiac: No Neurological: Yes Seizure Disorder Reproductive Disorders: No Female Reproductive Disorders: 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 Genitourinary: No Gastrointestinal: No Musculoskeletal: No Endocrine: No HEENT: No Cancer: No Psychosocial: Yes Anxiety, PTSD, Bipolar, Depression Integumentary: No Blood Disorders: Yes (ANEMIA) Physical Exam Vital Signs Vital Signs - First Documented 07/01/19 10:59 Temp 36.9 Pulse 93 Resp 16 B/P (MAP) 100/47 (64) Pulse Ox 94 O2 Delivery Room Air Capillary Refill : General Appearance: WD/WN, no apparent distress Neck: non-tender, full range of motion Cardiovascular: regular rate, rhythm Respiratory: chest non-tender, lungs clear, normal breath sounds Gastrointestinal: normal bowel sounds, non tender Extremities: normal range of motion, swelling (dorsum right foot with erythema) Skin: normal color, other (erythema noted on the dorsum the right foot with a small open wound. The wound is between the third and fourth toes on the dorsum of the foot) Skin Problem Character: erythema Progress/Results/Core Measures Results/Orders Vital Signs/I&O 07/01/19 10:59 Temp 36.9 Pulse 93 Resp 16 B/P (MAP) 100/47 (64) Pulse Ox 94 O2 Delivery Room Air Progress Progress Note : Time: 11:16 Progress Note Patient has cellulitis of the dorsum of the right foot due to an open wound between the third and fourth toes. With increasing pain plan will be to place her on warm water soaks with anti-aseptic such as Betadine topical mupirocin ointment continue her Bactrim crutches with no weightbearing work note and oral analgesics. Departure Impression Primary Impression: Cellulitis Disposition: HOME, SELF-CARE Condition: Improved Departure-Patient Inst. Referrals: NO,LOCAL PHYSICIAN (PCP/Family) Primary Care Physician Patient Instructions: Cellulitis (Skin Infection), Adult (DC) Add. Discharge Instructions: Get Betadine solution [id number] and soak right foot in warm water with 1/4 cup of the Betadine solution added 2-3 times a day then apply the mupirocin ointment with a dry bandage no weightbearing recheck with your doctor in 3-4 days if not better return if fever chills or vomiting All discharge instructions reviewed with patient and/or family. Voiced understanding. Scripts Crutch (Crutch) 1 Each Each EACH MC DAILY PRN for PAIN-MILD (1-4), #1 0 Refills cellulitis and not able to weight bear Prov: MICHEAL RAYA DO 07/01/19 Hydrocodone/Ibuprofen (Ibudone 10-200 mg Tablet) 1 Each Tablet 1 EACH PO Q6H for Pain for 7 Days, #10 TAB Prov: MICHEAL RAYA DO 07/01/19 Mupirocin Calcium (Mupirocin) 15 Gm Cream..g. 15 GM TP Q8H for 7 Days, #15 TUBE Prov: MICHEAL RAYA DO 07/01/19 Work/School Note: Work Release Form Date Seen in the Emergency Department: Jul 01, 2019 Return to Work: Jul 01, 2019 Other Restrictions Listed Below: Crutches for 4 days Restrictions: Crutches, no standing for more than 5 minutes, must be able to elevate foot MICHEAL RAYA DO Jul 01, 2019 11:13
[2019-07-01] MEDS ORDERED: MUPI15CR11 TP (11:22)
[2019-07-01] MEDS ORDERED: [UNRECOGNIZED DRUG - CODE] PO (11:22)
[2019-07-01] MEDS ORDERED: CRUT1EAC7 MC (11:28)
== END 2019-07-01 11:42 | disposition home or self-care (01) ==
LOC: EDUNIT# 10:48 → ER FS 10:49
DX: L03.115 Cellulitis of right lower limb (principal); F17.210 Nicotine dependence, cigarettes, uncomplicated
CPT/HCPCS: 99282

== ENCOUNTER 2019-10-13 13:38 | Emergency (ER) | payer MEDICAID ==
[~2019-10-13] VITALS: Ht 154.9 cm; Wt 48.1 kg
[~2019-10-13 13:38] MED LIST changes: +CRUT1EAC7 MC; +MUPI15CR11 TP; +[UNRECOGNIZED DRUG - CODE] PO
--- NOTE | 2019-10-13 14:17 | ED General ---
General Chief Complaint: Neurological Problems Stated Complaint: SEIZURE Nursing Triage Note: Patient reports her mother told her she had multiple seizures today while patient was at work. She states her seizures typically manifest as petit-mal and/or blackouts. She states today she was told she had a grand-mal seizure, which is atypical for her. She states she has had seizures for 6 years, states she just started keppra one week ago. She states her last seizure was 2 weeks ago. Nursing Sepsis Screen: No Definite Risk Source of Information: Patient Exam Limitations: No Limitations History of Present Illness Date Seen by Provider: Oct 13, 2019 Time Seen by Provider: 13:55 Initial Comments 24 y/o female presents after having a Sz at work. Knew she was going to have one, had preceding hands shaking, then went out and woke up with her mom there. Just started on Keppra 1 wk ago ....250mg twice daily(first time ever taking sz med) by Dr Ramirez. Sched for EEG on Oct, then Neuro appt on Oct all in [place]. Says she has had intermittent Sz for 6 yrs, but never been tx because she was either or did not have insurance. Now has Insurance so pursuing dx and tx. No change in her sz pattern. Admits she smokes weed to try and prevent and her mother gives her medication when she has a sz (maybe a BZD?) that keeps them away. Her brother has epilepsy. Allergies and Home Medications Allergies Coded Allergies: No Known Drug Allergies (Unverified , 11/17/17) Home Medications Baloxavir Marboxil 40 Mg Tablet, 80 MG PO ONCE Prescribed by: HANDY JOHNSON on 04/23/19 1536 Benzonatate 100 Mg Capsule, 200 MG PO TID PRN for COUGH Prescribed by: HANDY JOHNSON on 04/23/19 1538 Doxycycline Hyclate 100 Mg Tablet, 100 MG PO BID Prescribed by: GUILLE MCKEON on 04/02/19 0833 Hydrocodone/Ibuprofen 1 Each Tablet, 1 EACH PO Q6H Prescribed by: MICHEAL RAYA on 07/01/19 1122 Ibuprofen 800 Mg Tablet, 800 MG PO Q8H PRN for PAIN Prescribed by: HANDY JOHNSON on 04/23/19 1538 Meloxicam 15 Mg Tablet, 15 MG PO DAILY Prescribed by: KAROLINE MALONEY on 01/28/19 0000 Mupirocin Calcium 15 Gm Cream..g., 15 GM TP Q8H Prescribed by: MICHEAL RAYA on 07/01/19 1122 Oseltamivir Phosphate 75 Mg Cap, 75 MG PO BID Prescribed by: HANDY JOHNSON on 04/23/19 1537 Phenazopyridine HCl 200 Mg Tablet, 1 TAB PO QID Prescribed by: GUILLE MCKEON on 04/02/19 0833 Sulfamethoxazole/Trimethoprim 1 Each Tablet, 1 EACH PO BID Prescribed by: GUILLE MCKEON on 04/02/19 0833 Sulfamethoxazole/Trimethoprim 1 Each Tablet, 1 EACH PO BID Prescribed by: KALI PATINO on 06/30/196 Patient Home Medication List Home Medication List Reviewed: Yes Review of Systems Review of Systems Constitutional: see HPI; No dizziness, No fever, No malaise, No weakness EENTM: no symptoms reported; No mouth pain, No mouth swelling, No throat pain, No throat swelling Respiratory: No cough, No short of breath Cardiovascular: No chest pain, No edema, No palpitations Gastrointestinal: No abdominal pain, No vomiting Musculoskeletal: No back pain, No joint pain Skin: No change in color, No lesions, No rash, No other Psychiatric/Neurological: See HPI; Denies Headache, Denies Numbness, Denies Paresthesia, Denies Pre-Existing Deficit; Seizure Past Rmcevzv-Esgeip-Uynleu Hx Past Med/Social Hx: Reviewed Nursing Past Med/Soc Hx Patient Social History Alcohol Use: Denies Use Recreational Drug Use: Yes Drug of Choice: Marijuana Smoking Status: Current Everyday Smoker Type Used: Cigarettes 2nd Hand Smoke Exposure: Yes Recent Foreign Travel: No Contact w/Someone Who Travel: No Recent Infectious Disease Expo: No Recent Hopitalizations: No Physical Abuse: No Sexual Abuse: No Mistreated: No Fear: No Immunizations Up To Date Tetanus Booster (TDap): Less than 5yrs Seasonal Allergies Seasonal Allergies: Yes Past Medical History Surgeries: Yes Section, Tubal Ligation Respiratory: Yes Asthma Cardiac: No Neurological: Yes Seizure Disorder Reproductive Disorders: No Female 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 0.0oz. 59.849641ho; 20.00 BMI Method:Stated General Appearance: No Apparent Distress, WD/WN HEENT: PERRL/EOMI, Normal ENT Inspection, Moist Mucous Membranes Neck: Full Range of Motion, Normal Inspection, Non Tender, Supple Respiratory: Chest Non Tender, Lungs Clear Cardiovascular: Regular Rate, Rhythm, No Edema, Normal Peripheral Pulses Gastrointestinal: Non Tender, Soft Extremity: Normal Capillary Refill, Normal Inspection, Non Tender, No Calf Tenderness Neurologic/Psychiatric: Alert, Oriented x3, No Motor/Sensory Deficits, Normal Mood/Affect, taxation agent II-XII Norm as Tested Progress/Results/Core Measures Suspected Sepsis Recent Fever Within 48 Hours: No Infection Criteria Present: None New/Unexplained Altered Menta: No Sepsis Screen: No Definite Risk SIRS Temperature: Pulse: 66 Respiratory Rate: 18 Laboratory Tests 10/13/19 13:50: White Blood Count 7.4 Blood Pressure 121 /50 Mean: 73 Laboratory Tests 10/13/19 13:50: Creatinine 0.66, Platelet Count 309, Total Bilirubin 0.3 Results/Orders Lab Results Laboratory Tests Test 10/13/19 13:40 10/13/19 13:50 Range/Units Urine Color YELLOW Urine Clarity CLEAR Urine pH 7.5 5-9 Urine Specific Reynolds 1.015 L 1.016-1.022 Urine Protein NEGATIVE NEGATIVE Urine Glucose (UA) NEGATIVE NEGATIVE Urine Ketones NEGATIVE NEGATIVE Urine Nitrite NEGATIVE NEGATIVE Urine Bilirubin NEGATIVE NEGATIVE Urine Urobilinogen 0.2 < = 1.0 MG/DL Urine Leukocyte Esterase NEGATIVE NEGATIVE Urine RBC (Auto) NEGATIVE NEGATIVE Urine RBC NONE /HPF Urine WBC RARE /HPF Urine Squamous Epithelial Cells 5-10 /HPF Urine Crystals NONE /LPF Urine Bacteria NEGATIVE /HPF Urine Casts NONE /LPF Urine Mucus NEGATIVE /LPF Urine Culture Indicated NO Urine Opiates Screen NEGATIVE NEGATIVE Urine Oxycodone Screen NEGATIVE NEGATIVE Urine Methadone Screen NEGATIVE NEGATIVE Urine Propoxyphene Screen NEGATIVE NEGATIVE Urine Barbiturates Screen NEGATIVE NEGATIVE Ur Tricyclic Antidepressants Screen NEGATIVE NEGATIVE Urine Phencyclidine Screen NEGATIVE NEGATIVE Urine Amphetamines Screen NEGATIVE NEGATIVE Urine Methamphetamines Screen NEGATIVE NEGATIVE Urine Benzodiazepines Screen NEGATIVE NEGATIVE Urine Cocaine Screen NEGATIVE NEGATIVE Urine Cannabinoids Screen POSITIVE H NEGATIVE White Blood Count 7.4 4.3-11.0 10^3/uL Red Blood Count 4.24 L 4.35-5.85 10^6/uL Hemoglobin 12.4 11.5-16.0 G/DL Hematocrit 37 35-52 % Mean Corpuscular Volume 87 80-99 FL Mean Corpuscular Hemoglobin 29 25-34 PG Mean Corpuscular Hemoglobin Concent 34 32-36 G/DL Red Cell Distribution Width 12.9 10.0-14.5 % Platelet Count 309 130-400 10^3/uL Mean Platelet Volume 9.0 7.4-10.4 FL Neutrophils (%) (Auto) 53 42-75 % Lymphocytes (%) (Auto) 40 12-44 % Monocytes (%) (Auto) 5 0-12 % Eosinophils (%) (Auto) 2 0-10 % Basophils (%) (Auto) 0 0-10 % Neutrophils # (Auto) 3.9 1.8-7.8 X 10^3 Lymphocytes # (Auto) 3.0 1.0-4.0 X 10^3 Monocytes # (Auto) 0.3 0.0-1.0 X 10^3 Eosinophils # (Auto) 0.2 0.0-0.3 10^3/uL Basophils # (Auto) 0.0 0.0-0.1 10^3/uL Sodium Level 137 135-145 MMOL/L Potassium Level 3.9 3.6-5.0 MMOL/L Chloride Level 101 98-107 MMOL/L Carbon Dioxide Level 26 21-32 MMOL/L Anion Gap 10 5-14 MMOL/L Blood Urea Nitrogen 6 L 7-18 MG/DL Creatinine 0.66 0.60-1.30 MG/DL Estimat Glomerular Filtration Rate > 60 BUN/Creatinine Ratio 9 Glucose Level 103 70-105 MG/DL Calcium Level 9.4 8.5-10.1 MG/DL Corrected Calcium 9.1 8.5-10.1 MG/DL Total Bilirubin 0.3 0.1-1.0 MG/DL Aspartate Amino Transf (AST/SGOT) 16 5-34 U/L Alanine Aminotransferase (ALT/SGPT) 18 0-55 U/L Alkaline Phosphatase 68 40-136 U/L Total Protein 6.8 6.4-8.2 GM/DL Albumin 4.4 3.2-4.5 GM/DL My Orders Orders - KALI PATINO DO Creatine Kinase (10/13/19 14:05) Cbc With Automated Diff (10/13/19 14:05) Comprehensive Metabolic Panel (10/13/19 14:05) Urinalysis (10/13/19 14:05) Drug Screen Stat (Urine) (10/13/19 14:05) Vital Signs/I&O 10/13/19 13:41 Temp 36.4 Pulse 66 Resp 18 B/P (MAP) 121/50 (73) Pulse Ox 98 O2 Delivery Room Air Capillary Refill : Less Than 3 Seconds Blood Pressure Mean: 73 Departure Impression Primary Impression: Seizure disorder Disposition: 01 HOME, SELF-CARE Condition: Improved Departure-Patient Inst. Decision time for Depature: 14:49 Referrals: [facility] (PCP) Primary Care Physician GOLD DAWKINS APRN (Family) Primary Care Physician Patient Instructions: Seizures, Adult (DC) Add. Discharge Instructions: You are advised to start taking a FULL 500mg Keppra tablet twice a day now. Call Dr Ramirez to let her know some of your labs (were sent out) will be available later. All discharge instructions reviewed with patient and/or family. Voiced understanding. KALI PATINO DO Oct 13, 2019 14:17
[2019-10-13 14:19] LABS: BASOPHILS % (AUTO) 0 % (0-10); EOSINOPHILS % (AUTO) 2 % (0-10); HEMATOCRIT 37 % (35-52); HEMOGLOBIN 12.4 G/DL (11.5-16.0); LYMPHOCYTES % (AUTO) 40 % (12-44); MEAN CORPUSCULAR HEMOGLOBIN 29 PG (25-34); MEAN CORPUSCULAR HGB CONC 34 G/DL (32-36); MEAN CORPUSCULAR VOLUME 87 FL (80-99); MONOCYTES % (AUTO) 5 % (0-12); NEUTROPHILS % (AUTO) 53 % (42-75); PLATELET COUNT 309 10^3/uL (130-400); RED CELL DISTRIBUTION WIDTH 12.9 % (10.0-14.5); WHITE BLOOD COUNT 7.4 10^3/uL (4.3-11.0)
[2019-10-13 14:20] LABS: EOSINOPHILS # (AUTO) 0.2 10^3/uL (0.0-0.3); MONOCYTES # (AUTO) 0.3 X 10^3 (0.0-1.0); NEUTROPHILS # (AUTO) 3.9 X 10^3 (1.8-7.8)
[2019-10-13 14:35] LABS: COLOR,URINE YELLOW
[2019-10-13 14:36] LABS: BACTERIA,URINE NEGATIVE /HPF; BILIRUBIN,URINE NEGATIVE (NEGATIVE); CLARITY,URINE CLEAR; GLUCOSE, URINE (UA) NEGATIVE (NEGATIVE); KETONES,URINE NEGATIVE (NEGATIVE); LEUKOCYTE ESTERASE ,URINE NEGATIVE (NEGATIVE); NITRITE,URINE NEGATIVE (NEGATIVE); PH,URINE 7.5 (5-9); PROTEIN,URINE NEGATIVE (NEGATIVE); WBC,URINE RARE /HPF
[2019-10-13 14:37] LABS: AMPHETAMINE SCREEN, URINE NEGATIVE (NEGATIVE); BARBITURATE SCREEN URINE NEGATIVE (NEGATIVE); BENZODIAZEPINES SCREEN URINE NEGATIVE (NEGATIVE); COCAINE SCREEN URINE NEGATIVE (NEGATIVE); METHADONE STAT NEGATIVE (NEGATIVE); METHAMPHETAMINE SCREEN URINE S NEGATIVE (NEGATIVE); OPIATE SCREEN URINE NEGATIVE (NEGATIVE); OXYCODONE STAT NEGATIVE (NEGATIVE); PROPOXYPHENE STAT NEGATIVE (NEGATIVE); TRICYCLIC ANTIDEPRESSANTS SCRE NEGATIVE (NEGATIVE)
[2019-10-13 14:38] LABS: CANNABINOID SCREEN, URINE POSITIVE (NEGATIVE)
[2019-10-13 14:38] LABS: BILIRUBIN,TOTAL 0.3 MG/DL (0.1-1.0); BUN/CREATININE RATIO 9; CALCIUM 9.4 MG/DL (8.5-10.1); CARBON DIOXIDE 26 MMOL/L (21-32); CHLORIDE 101 MMOL/L (98-107); CREATININE SERUM 0.66 MG/DL (0.60-1.30); GFR ESTIMATED > 60; GLUCOSE 103 MG/DL (70-105); POTASSIUM 3.9 MMOL/L (3.6-5.0); SODIUM 137 MMOL/L (135-145)
[2019-10-13 14:39] LABS: ALANINE AMINOTRANSFERASE 18 U/L (0-55); ALBUMIN 4.4 GM/DL (3.2-4.5); ALKALINE PHOSPHATASE 68 U/L (40-136); TOTAL PROTEIN 6.8 GM/DL (6.4-8.2)
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
[2019-10-13 15:00] VITALS: BP 110/53
[2019-10-14 01:29] LABS: CREATINE KINASE 45 U/L (29-168)
== END 2019-10-13 15:00 | disposition home or self-care (01) ==
LOC: EDUNIT# 13:38 → ER FS 13:40
DX: G40.909 Epilepsy, unspecified, not intractable, without status epilepticus (principal); F17.210 Nicotine dependence, cigarettes, uncomplicated
CPT/HCPCS: 36415; 80053; 80306; 81000; 82550; 84703; 85025

== ENCOUNTER 2019-12-10 15:46 | Emergency (ER) | payer MEDICAID ==
[~2019-12-10] VITALS: Ht 154 cm; Wt 45.3 kg
[2019-12-10 16:02] VITALS: BP 99/68
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
[2019-12-10] MEDS ORDERED: CYCL5TAB (16:12)
[2019-12-10] MEDS ORDERED: DICL75TA2 PO (16:27)
--- NOTE | 2019-12-10 16:28 | Diagnostic Imaging Report ---
EXAMINATION: Cervical spine at 04:14 p.m. INDICATION: Seizure. TECHNIQUE: Three views were obtained. COMPARISON: There are no prior studies available for comparison. FINDINGS: The lateral view shows reversal of the normal lordosis of the cervical spine. This may be secondary to muscle spasm and/or positioning. The vertebral body heights are within normal limits and the intervertebral spaces are fairly well maintained. There is no fracture or acute bony abnormality appreciated. There is no sign of retropharyngeal edema. Lung apices are clear. IMPRESSION: The reversal of the normal lordosis of the cervical spine may be secondary to muscle spasm and/or positioning. There is no acute bony abnormality identified. Dictated by: Dictated on workstation # [id number]
== END 2019-12-10 16:34 | disposition home or self-care (01) ==
LOC: EDUNIT# 15:46 → ER FS 15:47
DX: S13.8XXA Sprain of joints and ligaments of other parts of neck, initial encounter (principal); F17.210 Nicotine dependence, cigarettes, uncomplicated; X58.XXXA Exposure to other specified factors, initial encounter
CPT/HCPCS: 72040

== ENCOUNTER 2020-04-03 04:52 | Emergency (ER) | payer MEDICAID ==
[~2020-04-03] VITALS: Ht 154.9 cm; Wt 45.3 kg
[~2020-04-03 04:52] MED LIST changes: +CYCL5TAB; +DICL75TA2 PO
[2020-04-03] MEDS ORDERED: NS IV 1000 ML 1,000 ML IV SCH (05:15)
[2020-04-03] MEDS ORDERED: ONDANSETRON 4 MG/2 ML (SDV) Z0FRAN IVP ONE (05:15)
[2020-04-03] MEDS ORDERED: fentaNYL INJECTION 100 MCG/2 ML AMP IVP ONE (05:15)
[2020-04-03 05:50] LABS: BILIRUBIN,URINE NEGATIVE (NEGATIVE); CLARITY,URINE SLT CLOUDY; COLOR,URINE YELLOW; GLUCOSE, URINE (UA) NEGATIVE (NEGATIVE); KETONES,URINE NEGATIVE (NEGATIVE); LEUKOCYTE ESTERASE ,URINE 1+ (NEGATIVE); NITRITE,URINE POSITIVE (NEGATIVE); PROTEIN,URINE 2+ (NEGATIVE)
[2020-04-03 05:51] LABS: BACTERIA,URINE TRACE /HPF; RBC,URINE 0-2 /HPF; WBC,URINE 50-100 /HPF
[2020-04-03 05:52] LABS: HEMATOCRIT 35 % (35-52); MEAN CORPUSCULAR HEMOGLOBIN 29 PG (25-34); MEAN CORPUSCULAR HGB CONC 34 G/DL (32-36); MEAN CORPUSCULAR VOLUME 86 FL (80-99); MEAN PLATELET VOLUME 9.1 FL (7.4-10.4); NEUTROPHILS % (AUTO) 76 % (42-75); PLATELET COUNT 292 10^3/uL (130-400); WHITE BLOOD COUNT 12.5 10^3/uL (4.3-11.0)
[2020-04-03 05:53] LABS: BASOPHILS % (AUTO) 0 % (0-10); EOSINOPHILS # (AUTO) 0.1 10^3/uL (0.0-0.3); EOSINOPHILS % (AUTO) 1 % (0-10); LYMPHOCYTES % (AUTO) 16 % (12-44); MONOCYTES # (AUTO) 0.8 X 10^3 (0.0-1.0); MONOCYTES % (AUTO) 6 % (0-12); NEUTROPHILS # (AUTO) 9.6 X 10^3 (1.8-7.8)
--- NOTE | 2020-04-03 05:55 | ED General ---
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 States pain and burning on urination and hesitency. Nursing Sepsis Screen: No Definite Risk History of Present Illness Date Seen by Provider: Apr 03, 2020 Time Seen by Provider: 05:00 Initial Comments Patient is a 24-year-old female who presents with dysuria and right flank pain. Dysuria is described as sharp and rated moderate to severe. Flank pain is described as dull and is worse with movement and palpation. Symptoms have been intermittent for the past several days however pain is now spread to her right flank and radiates to her right groin. Patient denies fever chills nausea vomiting and sweats. She does report constipation. No history of kidney stones. On day 6 of menstrual period. Previous tubal ligation. No other acute symptoms or complaints Timing/Duration: 4-5 Days Severity: Moderate Modifying Factors: improves with Other Associated Systoms: Other Allergies and Home Medications Allergies Coded Allergies: No Known Drug Allergies (Unverified , 11/17/17) Home Medications Diclofenac Sodium 75 Mg Tablet.dr, 75 MG PO BID Prescribed by: HANDY ALBERT on 12/10/19 1627 Hydrocodone/Ibuprofen 1 Each Tablet, 1 EACH PO Q6H Prescribed by: MICHEAL RAYA on 07/01/19 1122 Ibuprofen 800 Mg Tablet, 800 MG PO Q8H PRN for PAIN Prescribed by: HANDY JOHNSON on 04/23/19 1538 Patient Home Medication List Home Medication List Reviewed: Yes Review of Systems Review of Systems Constitutional: see HPI EENTM: see HPI Respiratory: see HPI Cardiovascular: see HPI Gastrointestinal: see HPI Genitourinary: see HPI Musculoskeletal: see HPI Skin: see HPI Psychiatric/Neurological: See HPI Hematologic/Lymphatic: See HPI Immunological/Allergic: see HPI All Other Systems Reviewed Negative Unless Noted: Yes Past Whtisjq-Jzvblv-Hpdpbc Hx Past Med/Social Hx: Reviewed Nursing Past Med/Soc Hx Patient Social History Alcohol Use: Denies Use Drug of Choice: roberto carlos Smoking Status: Current Everyday Smoker Type Used: Cigarettes 2nd Hand Smoke Exposure: Yes Recent Infectious Disease Expo: No Recent Hopitalizations: No Immunizations Up To Date Tetanus Booster (TDap): Less than 5yrs Seasonal Allergies Seasonal Allergies: Yes Past Medical History Surgeries: Yes Section, Tubal Ligation Respiratory: Yes Asthma Cardiac: No Neurological: Yes (non-epileptic seizures) Seizure Disorder : No Last Menstrual Period: Apr 03, 2020 Reproductive Disorders: No 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 0.0oz. 59.968542uo; 18.00 BMI Method:Stated General Appearance: Other Eyes: Bilateral Eye Normal Inspection, Bilateral Eye PERRL, Bilateral Eye EOMI HEENT: PERRL/EOMI, Normal ENT Inspection, Pharynx Normal Neck: Non Tender, Supple Respiratory: Lungs Clear, Normal Breath Sounds Cardiovascular: No Edema Gastrointestinal: Soft Back: CVA Tenderness (R) Extremity: Non Tender, No Calf Tenderness Neurologic/Psychiatric: Alert, Oriented x3 Skin: Normal Color Focused Exam Sepsis Stage: Ruled Out Progress/Results/Core Measures Suspected Sepsis Recent Fever Within 48 Hours: No Infection Criteria Present: None New/Unexplained Altered Menta: No Sepsis Screen: No Definite Risk SIRS Temperature: Pulse: 67 Respiratory Rate: 14 Laboratory Tests 04/03/20 05:24: White Blood Count 12.5H Blood Pressure 103 /64 Mean: 77 Laboratory Tests 04/03/20 05:24: Creatinine 0.67, Platelet Count 292, Total Bilirubin 0.3 Results/Orders Lab Results Laboratory Tests Test 04/03/20 05:15 04/03/20 05:24 Range/Units Urine Color YELLOW Urine Clarity SLT CLOUDY Urine pH 7.0 5-9 Urine Specific [place] 1.020 1.016-1.022 Urine Protein 2+ H NEGATIVE Urine Glucose (UA) NEGATIVE NEGATIVE Urine Ketones NEGATIVE NEGATIVE Urine Nitrite POSITIVE H NEGATIVE Urine Bilirubin NEGATIVE NEGATIVE Urine Urobilinogen 0.2 < = 1.0 MG/DL Urine Leukocyte Esterase 1+ H NEGATIVE Urine RBC (Auto) 2+ H NEGATIVE Urine RBC 0-2 /HPF Urine WBC 50-100 H /HPF Urine Squamous Epithelial Cells NONE /HPF Urine Crystals NONE /LPF Urine Bacteria TRACE /HPF Urine Casts NONE /LPF Urine Mucus NEGATIVE /LPF Urine Culture Indicated YES White Blood Count 12.5 H 4.3-11.0 10^3/uL Red Blood Count 4.08 L 4.35-5.85 10^6/uL Hemoglobin 12.0 11.5-16.0 G/DL Hematocrit 35 35-52 % Mean Corpuscular Volume 86 80-99 FL Mean Corpuscular Hemoglobin 29 25-34 PG Mean Corpuscular Hemoglobin Concent 34 32-36 G/DL Red Cell Distribution Width 12.6 10.0-14.5 % Platelet Count 292 130-400 10^3/uL Mean Platelet Volume 9.1 7.4-10.4 FL Immature Granulocyte % (Auto) 1 % Neutrophils (%) (Auto) 76 H 42-75 % Lymphocytes (%) (Auto) 16 12-44 % Monocytes (%) (Auto) 6 0-12 % Eosinophils (%) (Auto) 1 0-10 % Basophils (%) (Auto) 0 0-10 % Neutrophils # (Auto) 9.6 H 1.8-7.8 X 10^3 Lymphocytes # (Auto) 2.0 1.0-4.0 X 10^3 Monocytes # (Auto) 0.8 0.0-1.0 X 10^3 Eosinophils # (Auto) 0.1 0.0-0.3 10^3/uL Basophils # (Auto) 0.0 0.0-0.1 10^3/uL Immature Granulocyte # (Auto) 0.1 0.0-0.1 10^3/uL Sodium Level 137 135-145 MMOL/L Potassium Level 3.8 3.6-5.0 MMOL/L Chloride Level 102 98-107 MMOL/L Carbon Dioxide Level 25 21-32 MMOL/L Anion Gap 10 5-14 MMOL/L Blood Urea Nitrogen 9 7-18 MG/DL Creatinine 0.67 0.60-1.30 MG/DL Estimat Glomerular Filtration Rate > 60 BUN/Creatinine Ratio 13 Glucose Level 106 H 70-105 MG/DL Calcium Level 9.2 8.5-10.1 MG/DL Corrected Calcium 8.9 8.5-10.1 MG/DL Total Bilirubin 0.3 0.1-1.0 MG/DL Aspartate Amino Transf (AST/SGOT) 9 5-34 U/L Alanine Aminotransferase (ALT/SGPT) 6 0-55 U/L Alkaline Phosphatase 71 40-136 U/L Total Protein 6.8 6.4-8.2 GM/DL Albumin 4.4 3.2-4.5 GM/DL My Orders Orders - BEULAH LYLE DO Cbc With Automated Diff (04/03/20 05:08) Comprehensive Metabolic Panel (04/03/20 05:08) Urinalysis (04/03/20 05:08) Urine Bedside (04/03/20 05:08) Fentanyl Injection (Sublimaze Injection (04/03/20 05:15) Ondansetron Injection (Zofran Injectio (04/03/20 05:15) Ns Iv 1000 Ml (Sodium Chloride 0.9%) (04/03/20 05:15) Urine Culture (04/03/20 05:15) Ceftriaxone For Iv Use (Rocephin For I (04/03/20 06:00) Ct Abdomen/Pelvis Wo (04/03/20 05:56) Medications Given in ED Current Medications Medications Dose Ordered Sig/Vanessa Route Start Time Stop Time Status Last Admin Dose Admin Ceftriaxone Sodium 1000 mg/ Sterile Water 10 ml @ 200 mls/hr ONCE ONCE IV 04/03/20 06:00 04/03/20 06:03 DC 04/03/20 06:15 200 MLS/HR Fentanyl Citrate 50 mcg ONCE ONCE IVP 04/03/20 05:15 04/03/20 05:17 DC 04/03/20 05:31 50 MCG Ondansetron HCl 4 mg ONCE ONCE IVP 04/03/20 05:15 04/03/20 05:17 DC 04/03/20 05:31 4 MG Vital Signs/I&O 04/03/20 04/03/20 04:55 06:15 Temp 36.2 36.2 Pulse 67 56 Resp 14 14 B/P (MAP) 103/64 (77) 98/47 (64) Pulse Ox 98 98 O2 Delivery Room Air Room Air Capillary Refill : Less Than 3 Seconds Blood Pressure Mean: 77 Departure Communication (Admissions) IV fluids, pain medications given. Patient resting comfortably. CT abdomen pelvis ordered for evaluation of possible kidney stone. IV fluids and antibiotics given for treatment of kidney infection. Patient resting comfortably. Therapeutic care to be continued as an outpatient. Return precautions reviewed. Impression Primary Impression: Pyelonephritis Disposition: HOME, SELF-CARE Condition: Stable Departure-Patient Inst. Decision time for Depature: 06:51 Referrals: [facility] (PCP/Family) Primary Care Physician Patient Instructions: Kidney Infection Add. Discharge Instructions: Please increase fluids and take newly prescribed medications as directed. Follow-up with your PCP in 2 to 3 days for urine culture results. Return to the ED if new or worsening symptoms. All discharge instructions reviewed with patient and/or family. Voiced understanding. Scripts Tramadol HCl (Tramadol HCl) 50 Mg Tablet 50 MG PO Q6H PRN for PAIN for 3 Days, #10 TAB 0 Refills Prov: BEULAH LYLE DO 04/03/20 Phenazopyridine HCl (Pyridium) 200 Mg Tablet 1 TAB PO TID, #6 TAB Prov: BEULAH LYLE DO 04/03/20 Amoxicillin/Potassium Clav (Augmentin 875-125 Tablet) 1 Each Tablet 1 EACH PO BID, #14 TAB 0 Refills Prov: BEULAH LYLE DO 04/03/20 BEULAH LYLE DO Apr 03, 2020 05:55
[2020-04-03] MEDS ORDERED: cefTRIAXone FOR IV USE 1,000 MG in WATER (STERILE) FOR INJECTION 10 ML IV ONE (06:00)
[2020-04-03 06:05] LABS: ALANINE AMINOTRANSFERASE 6 U/L (0-55); ALKALINE PHOSPHATASE 71 U/L (40-136); BILIRUBIN,TOTAL 0.3 MG/DL (0.1-1.0); BUN/CREATININE RATIO 13; CALCIUM 9.2 MG/DL (8.5-10.1); CARBON DIOXIDE 25 MMOL/L (21-32); CHLORIDE 102 MMOL/L (98-107); CREATININE SERUM 0.67 MG/DL (0.60-1.30); GFR ESTIMATED > 60; GLUCOSE 106 MG/DL (70-105); POTASSIUM 3.8 MMOL/L (3.6-5.0); SODIUM 137 MMOL/L (135-145)
[2020-04-03 06:06] LABS: ALBUMIN 4.4 GM/DL (3.2-4.5); TOTAL PROTEIN 6.8 GM/DL (6.4-8.2)
--- NOTE | 2020-04-03 06:21 | Diagnostic Imaging Report ---
PROCEDURE: CT abdomen and pelvis without contrast. TECHNIQUE: Multiple contiguous axial images were obtained through the abdomen and pelvis without the use of intravenous contrast. Auto Exposure Controls were utilized during the CT exam to meet ALARA standards for radiation dose reduction. INDICATION: Right-sided flank pain. Pain and burning during urination. COMPARISON: None. FINDINGS: The heart is unremarkable. The included lung bases are clear. The liver, spleen, pancreas, adrenal glands, and kidneys have a normal appearance. There is no pathologically enlarged mesenteric or retroperitoneal adenopathy. The bowel loops are nondilated. The appendix is visualized in the right lower quadrant and has a normal appearance. There is no free fluid or free air. The osseous structures are age-appropriate. The urinary bladder is moderately distended with bladder wall thickening. No bladder calculi are present. There is no free air, loculated collection, or adenopathy in the pelvis. IMPRESSION: 1. Moderately distended urinary bladder with bladder wall thickening. This appearance can be seen with cystitis. Recommend correlation with UA. 2. No evidence of renal calculi or hydronephrosis. 3. Normal appendix. Dictated by: Dictated on workstation # [id number]
[2020-04-03] MEDS ORDERED: PHEN-640 PO (06:50)
[2020-04-03] MEDS ORDERED: TRM50T PO (06:50)
[2020-04-03] MEDS ORDERED: AMOX-358 PO (06:50)
[2020-04-03 07:00] VITALS: BP 97/48
== END 2020-04-03 07:00 | disposition home or self-care (01) ==
LOC: EDUNIT# 04:52 → ER FS 04:54
DX: N12 Tubulo-interstitial nephritis, not specified as acute or chronic (principal); F17.210 Nicotine dependence, cigarettes, uncomplicated
CPT/HCPCS: 36415; 74176; 80053; 81000; 84703; 85025; 87077; 87088

== ENCOUNTER 2020-11-26 16:02 | Emergency (ER) | payer MEDICAID ==
[~2020-11-26 16:02] MED LIST changes: +AMOX-358 PO; -SULF1TAB35 PO; +SULF1TAB38 PO; +TRM50T PO
[2020-11-26] MEDS ORDERED: HYDROcodone/APAP 5 MG/325 MG (LORTAB) TAB PO STA (16:40)
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
--- NOTE | 2020-11-26 17:10 | Diagnostic Imaging Report ---
EXAM: Left knee radiograph EXAM DATE: 11/26/2020 COMPARISON: 01/01/2018 HISTORY: Left knee pain after a fall. TECHNIQUE: 3 views of the left knee. FINDINGS: There is no acute fracture, dislocation, or destructive osseous process. Joint spaces are normal. The soft tissues are normal. IMPRESSION: No acute osseous abnormality of the left knee. Dictated by: Dictated on workstation # [id number]
[2020-11-26] MEDS ORDERED: ACHD5005 PO (17:28)
[2020-11-26 17:38] VITALS: BP 110/57
== END 2020-11-26 17:33 | disposition home or self-care (01) ==
LOC: EDUNIT# 16:02 → ER FS 16:03
DX: S80.02XA Contusion of left knee, initial encounter (principal); J45.909 Unspecified asthma, uncomplicated; V00.141A Fall from scooter (nonmotorized), initial encounter
CPT/HCPCS: 73562

== ENCOUNTER → 2020-12-02 | Outpatient (CLI) | payer MEDICAID ==
--- NOTE | 2020-12-02 14:31 | Diagnostic Imaging Report ---
INDICATION: Left knee pain, fall COMPARISON: 11/26/2020 FINDINGS: 3 views left knee demonstrate no fracture or dislocation. No joint effusion is seen. IMPRESSION: Negative left knee. Dictated by: Dictated on workstation # [id number]
== END ==
LOC: RAD FS 13:31
PROVIDERS: ATTEND Nurse Practitioner
DX: S80.02XA Contusion of left knee, initial encounter (principal); W19.XXXA Unspecified fall, initial encounter
CPT/HCPCS: 73562

== ENCOUNTER 2021-07-26 15:51 | Emergency (ER) | payer MEDICAID ==
--- NOTE | 2021-07-26 16:04 | ED General ---
General Stated Complaint: TICK BITE ON STOMACH History of Present Illness Date Seen by Provider: July 26, 2021 Time Seen by Provider: 16:04 Initial Comments 25-year-old female is here with complaints of a tick bite to her stomach which occurred over 48 hours ago. Patient was able to remove the tick with some difficulty resulting in a small lesion on her stomach which she has been picking at since this occurred. Denies fever, chills, rash, joint pain, abdominal pain, diarrhea, respiratory symptoms. Allergies and Home Medications Allergies Coded Allergies: No Known Drug Allergies (Unverified , 11/17/17) Patient Home Medication List Home Medication List Reviewed: Yes Amoxicillin/Potassium Clav (Augmentin 875-125 Tablet) 1 Each Tablet, 1 EACH PO BID Prescribed by: BEULAH LYLE on 04/03/20 0650 Cyclobenzaprine HCl (Cyclobenzaprine HCl) 5 Mg Tablet, (Reported) Entered as Reported by: ENZO WYNNE on 12/10/19 1612 Diclofenac Sodium (Diclofenac Sodium) 75 Mg Tablet.dr, 75 MG PO BID Prescribed by: HANDY ALBERT on 12/10/19 1627 Hydrocodone/Acetaminophen (Hydrocodone-Acetamin 5-325 mg) 1 Each Tablet, 1 TAB PO Q6H PRN for PAIN-SEVERE (8-10) Prescribed by: MARIA DE JESUS DIAZ on 11/26/20 1728 Hydrocodone/Ibuprofen (Ibudone 10-200 mg Tablet) 1 Each Tablet, 1 EACH PO Q6H Prescribed by: MICHEAL RAYA on 07/01/19 1122 Ibuprofen (Ibuprofen) 800 Mg Tablet, 800 MG PO Q8H PRN for PAIN Prescribed by: HANDY JOHNSON on 04/23/19 1538 Phenazopyridine HCl (Pyridium) 200 Mg Tablet, 1 TAB PO TID Prescribed by: BEULAH LYLE on 04/03/20 0650 Tramadol HCl (Tramadol HCl) 50 Mg Tablet, 50 MG PO Q6H PRN for PAIN Prescribed by: BEULAH LYLE on 04/03/20 0650 Review of Systems Review of Systems Constitutional: no symptoms reported EENTM: no symptoms reported Respiratory: no symptoms reported Cardiovascular: no symptoms reported Gastrointestinal: no symptoms reported Genitourinary: no symptoms reported Musculoskeletal: no symptoms reported Skin: lesions Past Noytcgw-Nycfmz-Oxbeoy Hx Immunizations Up To Date Tetanus Booster (TDap): Less than 5yrs Seasonal Allergies Seasonal Allergies: Yes Past Medical History Surgeries: Yes Section, Tubal Ligation Respiratory: Yes Asthma Cardiac: No Neurological: Yes (non-epileptic seizures) Seizure Disorder Reproductive Disorders: No Female 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 0.0oz. 59.928265ud; 18.00 BMI Method:Stated General Appearance: No Apparent Distress, Anxious HEENT: PERRL/EOMI Neck: Full Range of Motion Respiratory: Lungs Clear Cardiovascular: Regular Rate, Rhythm Gastrointestinal: Non Tender, Soft Skin: Normal Color, Other (small tick bite lesion in right side of abdomen, 0.25 cm, no bleeding or discharge. Tick removed by pt. ) Progress/Results/Core Measures Suspected Sepsis SIRS Temperature: Pulse: Respiratory Rate: Blood Pressure / Mean: Results/Orders Vital Signs/I&O Capillary Refill : Progress Note : Progress Note 1. TICK BITE: - Prophylactic Doxycycline 200mg once STAT in ER - Follow up with PCP in 7 days - tick bite instructions given to pt, Need to see PCP if symptoms begin to develop. -The patient was seen in the ED, and treated appropriately to presentation at a specific point in time. Patient is informed that there is a possibility that disease and illness can evolve and change in acuity rapidly or slowly after patient is discharged from the ER. Precautionary advice given to the patient for immediate return to ER if symptoms worsen or do not resolve, and to seek emergency care sooner rather than later. Pt also advised on the importance of PCP follow up and compliance with management and follow up plan with PCP and/or specialist, as this is part of the management plan. Pt verbally expressed understanding. Departure Impression Primary Impression: Tick bite of abdomen Qualified Codes: S30.861A - Insect bite (nonvenomous) of abdominal wall, initial encounter; W57.XXXA - Bitten or stung by nonvenomous insect and other nonvenomous arthropods, initial encounter Disposition: 01 HOME, SELF-CARE Condition: Stable Departure-Patient Inst. Referrals: CHIDI NORTON APRN (PCP/Family) Primary Care Physician Patient Instructions: Lyme Disease Add. Discharge Instructions: - Prophylactic Doxycycline 200mg once STAT in ER - Follow up with PCP in 7 days - tick bite instructions given to pt, Need to see PCP if symptoms begin to develop. KALYN LOJA MD July 26, 2021 16:04
[2021-07-26] MEDS ORDERED: DOXYCYCLINE 100 MG (VIBRAMYCIN) TABLET PO STA (16:08)
[2021-07-26 16:34] VITALS: BP 111/58
== END 2021-07-26 16:32 | disposition home or self-care (01) ==
LOC: EDUNIT# 15:51 → ER FS 15:54
DX: S30.861A Insect bite (nonvenomous) of abdominal wall, initial encounter (principal); W57.XXXA Bitten or stung by nonvenomous insect and other nonvenomous arthropods, initial encounter
CPT/HCPCS: 99283

== ENCOUNTER 2021-10-25 15:48 | Inpatient (IN) | payer OTHER, MEDICAID ==
[~2021-10-25] VITALS: Ht 157.5 cm; Wt 47.6 kg
[2021-10-25] VITALS (9 sets, daily range): BP systolic 105–132; BP diastolic 52–84
[~2021-10-25 15:48] MED LIST changes: -BALO40TA PO; +BALO40TA4 PO
--- NOTE | 2021-10-25 16:08 | ED Trauma-Multisystem ---
General Chief Complaint: Trauma-Non Activation Stated Complaint: LRQ INJ Nursing Triage Note: Patient reports she works at the [employer] in [facility]. She reports she was trying to move some cows and got kicked. She reports the cow's hoof caught her right side, states she landed on the ground. She denies loss of consciousness, states the right/back side of her head is tender, reports neck pain, right shoulder pain, right abd/rib pain, and lower back pain. Source of Information: Patient Exam Limitations: No Limitations History of Present Illness Date Seen by Provider: Oct 25, 2021 Time Seen by Provider: 15:57 Initial Comments 26-year-old female patient with history of asthma, seizure disorder, bipolar disorder and PTSD stated she was treated on right side of lower chest and abdomen by a cow and she was in the air for a while and fell on gravel/concrete without loss of consciousness. Patient complaining of pain in his head and neck, right shoulder, right side of abdomen and her lower back and rated her pain 7/10. Patient denies focal neurodeficit, fever or chills, shortness of breath. Patient states she had mild nausea after injury that resolved at arrival to ER. Occurred: Just Prior to Arrival Allergies and Home Medications Allergies Coded Allergies: No Known Drug Allergies (Unverified , 11/17/17) Patient Home Medication List Home Medication List Reviewed: Yes Amoxicillin/Potassium Clav (Augmentin 875-125 Tablet) 1 Each Tablet, 1 EACH PO BID Prescribed by: BEULAH LYLE on 04/03/20 0650 Cyclobenzaprine HCl (Cyclobenzaprine HCl) 5 Mg Tablet, (Reported) Entered as Reported by: ENZO WYNNE on 12/10/19 1612 Diclofenac Sodium (Diclofenac Sodium) 75 Mg Tablet.dr 75 MG PO BID Prescribed by: HANDY ALBERT on 12/10/19 1627 Duloxetine HCl (Duloxetine HCl) 60 Mg Capsule., (Reported) Entered as Reported by: Minerva Edward on 10/25/212122 Last Action: New Order Hydrocodone/Acetaminophen (Hydrocodone-Acetamin 5-325 mg) 1 Each Tablet, 1 TAB PO Q6H PRN for PAIN-SEVERE (8-10) Prescribed by: MARIA DE JESUS DIAZ on 11/26/20 1728 Hydrocodone/Ibuprofen (Ibudone 10-200 mg Tablet) 1 Each Tablet, 1 EACH PO Q6H Prescribed by: GISELA RAYA on 07/01/19 1122 Ibuprofen (Ibuprofen) 800 Mg Tablet, 800 MG PO Q8H PRN for PAIN Prescribed by: HANDY JOHNSON on 04/23/19 1538 Mirtazapine (Mirtazapine) 7.5 Mg Tablet, (Reported) Entered as Reported by: Minerva Edward on 10/25/212122 Last Action: New Order Phenazopyridine HCl (Pyridium) 200 Mg Tablet, 1 TAB PO TID Prescribed by: BEULAH LYLE on 04/03/20 0650 Tramadol HCl (Tramadol HCl) 50 Mg Tablet, 50 MG PO Q6H PRN for PAIN Prescribed by: BEULAH LYLE on 04/03/20 0650 Review of Systems Review of Systems Constitutional: no symptoms reported Eyes: No Symptoms Reported Ears: No Symptoms Reported Mouth: No Symptoms Reported Throat: No Symptoms to Report Respiratory: no symptoms reported Cardiovascular: No Symptoms Reported Gastrointestinal: see HPI Genitourinary: no symptoms reported Musculoskeletal: see HPI Skin: no symptoms reported Psychiatric/Neurological: See HPI All Other Systems Reviewed Negative Unless Noted: Yes Past Rpisoed-Xlozah-Mqyaef Hx Patient Social History Tobacco Use?: Yes Tobacco type used: Cigarettes Smoking Status: Current Everyday Smoker Substance use?: No Alcohol Use?: No Immunizations Up To Date Tetanus Booster (TDap): Less than 5yrs Seasonal Allergies Seasonal Allergies: Yes Past Medical History Surgery/Hospitalization HX: Seizures; PTSD; Asthma; Anemia; Anxiety; Depression Surgeries: Yes Section, Tubal Ligation Respiratory: Yes Asthma Cardiac: No Neurological: Yes (non-epileptic seizures) Seizure Disorder Reproductive Disorders: No Female 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 0.0oz. 59.787373qm; 19.00 BMI Method:Stated General Appearance: Anxious Head: No Evidence of Injury Eyes: Bilateral Eye Normal Inspection, Bilateral Eye PERRL, Bilateral Eye EOMI Ears, Nose, Throat: Hearing Grossly Normal Neck: Other (Immobilized with c-collar at arrival to ER) Cardiovascular: Regular Rate, Rhythm, No Edema, No Gallop Respiratory: Chest Non Tender, Lungs Clear, Normal Breath Sounds, No Accessory Muscle Use, No Respiratory Distress Gastrointestinal: Normal Bowel Sounds, Soft, Guarding, Other (Right upper and mid abdomen erythema/contusion without ecchymosis) Back: Normal Inspection, No CVA Tenderness, Other (No midline tenderness) Extremity: Normal Capillary Refill, Normal Inspection, Normal Range of Motion Neurologic/Psychiatric: Alert, Oriented x3, Normal Mood/Affect Skin: Normal Color [place] Coma Score Best Eye Response ([place]): (4) Open Spontaneously Best Verbal Response (Jose C): (5) Oriented Best Motor Response ([place]): (6) Obeys Commands Progress/Results/Core Measures Results/Orders Lab Results Laboratory Tests Test 10/25/21 17:13 Range/Units White Blood Count 10.9 4.3-11.0 10^3/uL Red Blood Count 3.91 3.80-5.11 10^6/uL Hemoglobin 11.6 11.5-16.0 g/dL Hematocrit 34 L 35-52 % Mean Corpuscular Volume 86 80-99 fL Mean Corpuscular Hemoglobin 30 25-34 pg Mean Corpuscular Hemoglobin Concent 35 32-36 g/dL Red Cell Distribution Width 13.2 10.0-14.5 % Platelet Count 244 130-400 10^3/uL Mean Platelet Volume 8.4 L 9.0-12.2 fL Sodium Level 143 135-145 MMOL/L Potassium Level 3.2 L 3.6-5.0 MMOL/L Chloride Level 107 98-107 MMOL/L Carbon Dioxide Level 25 21-32 MMOL/L Anion Gap 11 5-14 MMOL/L Blood Urea Nitrogen 6 L 7-18 MG/DL Creatinine 0.68 0.60-1.30 MG/DL Estimat Glomerular Filtration Rate 122 BUN/Creatinine Ratio 9 Glucose Level 103 70-105 MG/DL Calcium Level 9.0 8.5-10.1 MG/DL Total Bilirubin 0.3 0.1-1.0 MG/DL Direct Bilirubin < 0.2 0.0-0.3 MG/DL Indirect Bilirubin 0.1 MG/DL Aspartate Amino Transf (AST/SGOT) 150 H 5-34 U/L Alanine Aminotransferase (ALT/SGPT) 108 H 0-55 U/L Alkaline Phosphatase 66 40-136 U/L Total Protein 6.7 6.4-8.2 GM/DL Albumin 4.7 H 3.2-4.5 GM/DL Serum Test, Qualitative NEGATIVE NEGATIVE My Orders Orders - LAURA LOUIE MD Ct Head/Cervical Spine Wo (10/25/21 16:05) Shoulder 3 View Right (10/25/21 16:08) Ct Chest/Abdomen/Pelvis Wo (10/25/21 16:05) Cbc No Diff (10/25/21 17:10) Basic Metabolic Panel (10/25/21 17:10) Liver Panel (10/25/21 17:10) Hcg,Qualitative Serum (10/25/21 17:10) Ua Culture If Indicated (10/25/21 17:10) Ed Iv/Invasive Line Start (10/25/21 17:10) Ns Iv 1000 Ml (Sodium Chloride 0.9%) (10/25/21 17:15) Fentanyl Inj (Sublimaze Injection) (10/25/21 17:15) Ondansetron Injection (Zofran Injectio (10/25/21 17:15) Ct Abdomen/Pelvis W (10/25/21 17:10) Iohexol Injection (Omnipaque 350 Mg/Ml 1 (10/25/21 17:15) Received Contrast (Hold Metformin- Contr (10/25/21 17:15) Sodium Chloride Flush (Catheter Flush Sy (10/25/21 17:15) Ns (Ivpb) (Sodium Chloride 0.9% Ivpb Bag (10/25/21 17:15) Ed Admission (Communication) (10/25/21 17:54) Medications Given in ED Current Medications Medications Dose Ordered Sig/Vanessa Route Start Time Stop Time Status Last Admin Dose Admin Fentanyl Citrate 25 mcg ONCE ONCE IVP 10/25/21 17:15 10/25/21 17:16 DC 10/25/21 17:25 25 MCG Iohexol 100 ml ONCE ONCE IV 10/25/21 17:15 10/25/21 20:32 DC 10/25/21 17:33 80 ML Ondansetron HCl 4 mg ONCE ONCE IVP 10/25/21 17:15 10/25/21 17:16 DC 10/25/21 17:24 4 MG Sodium Chloride 10 ml NEEDED PRN IV 10/25/21 17:15 10/25/21 17:33 10 ML Sodium Chloride 100 ml ONCE ONCE IV 10/25/21 17:15 10/25/21 20:32 DC 10/25/21 17:33 80 ML Vital Signs/I&O 10/25/21 10/25/21 15:50 18:10 Temp 36.1 Pulse 72 69 Resp 16 16 B/P (MAP) 114/97 (103) 108/67 Pulse Ox 98 99 O2 Delivery Room Air Room Air Blood Pressure Mean: 103 Progress Progress Note : Progress Note Evaluation of patient in ER showed 26-year-old female patient presented POV with complaining of injury to abdomen after kicking by a cow and then having a fall injury to her head and neck and right shoulder and back. Patient was alert and oriented and had a stable vital sign. Patient had contusion of abdominal wall. CT head and cervical spine and x-ray of right shoulder was unremarkable. CT chest did not show acute finding. CT abdomen pelvis with IV contrast showed grade 4 liver laceration and moderate pneumoperitoneum. Dr. Cheung on-call surgeon was informed at 1737 and accepted admission at 1742. Patient treated with IV fluid, Zofran, fentanyl with improvement of her condition. Patient and her family informed about test results, plan of care and need for admission. Patient was admitted at ICU in [facility]. Diagnostic Imaging Diagonstic Imaging: Xray (Right shoulder) Comments NAME: JAMARCUS NELSON [facility] REC#: [id number] PT STATUS: REG ER : 02/25/2018 PHYSICIAN: LAURA LOUEI MD ADMIT DATE: 10/25/21/ER FS Signed Date of Exam:10/25/21 CHEST 1 VIEW AP/PA ONLY INDICATION: Fever. TECHNIQUE: Single view chest 6:45 PM. CORRELATION STUDY: 09/16/2020. FINDINGS: Heart size and mediastinum are mildly prominent. There does appear to be faint, in particular more central, opacities. Stomach is rather significantly distended with gas and fluid. IMPRESSION: Questioned bilateral perihilar infiltrate-like opacities may reflect a viral-type pneumonitis and/or reactive airway changes. No gisela lobar consolidation. Dictated by: Dictated on workstation # [id number] Dict: 10/25/21 1847 Trans: 10/25/212105 PJE [id number] Interpreted by: KAYCE KHALIL DO Electronically signed by: KAYCE KHALIL DO 10/25/212105 CT Results/Progress Notes NAME: DOMINGA HANDLEY [facility] REC#: [id number] PT STATUS: REG ER : 1995 PHYSICIAN: LAURA LOUIE MD ADMIT DATE: 10/25/21/ER FS Draft Date of Exam:10/25/21 CT HEAD/CERVICAL SPINE WO PROCEDURE: CT head and CT cervical spine without contrast. TECHNIQUE: Multiple contiguous axial images were obtained through the brain and cervical spine without the use of intravenous contrast. Sagittal and coronal reformations through the cervical spine were then performed. Auto Exposure Controls were utilized during the CT exam to meet ALARA standards for radiation dose reduction. INDICATION: Fall with loss of consciousness. COMPARISON: No prior studies are available for comparison. CT HEAD: Ventricles and sulci are within normal limits. No sulcal effacement or midline shift is identified. No acute intra-axial or extra-axial hemorrhage is detected. Cisterns are patent. The visualized paranasal sinuses are clear. IMPRESSION: No acute intracranial process is detected. CT CERVICAL SPINE: Curvature and alignment of the cervical spine is normal. No fracture or subluxation is identified. Prevertebral tissues are normal. Odontoid is intact. IMPRESSION: No acute bony abnormality is detected. Dictated on workstation # [id number] Dict: 10/25/21 1654 Trans: 10/25/21 1707 PJE [id number] Interpreted by: JAMI FREEMAN MD Electronically signed by: [facility] [place] NAME: DOMINGA HANDLEY MED REC#: [id number] PT STATUS: REG ER : 1995 PHYSICIAN: LAURA LOUIE MD ADMIT DATE: 10/25/21/ER FS Draft Date of Exam:10/25/21 CT CHEST/ABDOMEN/PELVIS WO PROCEDURE: CT chest, abdomen, and pelvis without contrast. TECHNIQUE: Multiple contiguous axial images were obtained through the chest, abdomen, and pelvis without the use of intravenous contrast. Auto Exposure Controls were utilized during the CT exam to meet ALARA standards for radiation dose reduction. INDICATION: Trauma, kicked by a cow with pain and bruising. CT CHEST: Study is somewhat limited due to absence of intravenous contrast. No definite mediastinal hematoma is identified. No pericardial or pleural fluid is detected. No pulmonary contusion or evidence of pneumothorax is detected. Bony structures appear intact. IMPRESSION: Unremarkable noncontrast CT of the chest. CT ABDOMEN/PELVIS: Evaluation of solid organ viscera is limited due to absence of intravenous contrast. No definite hepatic or splenic injury is seen, however, there does appear to be a small amount of high density fluid within the gutters bilaterally suggestive of a hemoperitoneum. There is a moderate amount of free fluid in the pelvis as well which appears to be higher density consistent with blood. Exact site of origin is indeterminate. No definite pancreatic, adrenal or renal injury is seen. The bowel loops are normal caliber. Bladder and uterus are unremarkable. No fractures are identified. IMPRESSION: There are findings consistent with a hemoperitoneum. Exact site of injury is indeterminate. Postcontrast study would be recommended. Dictated on workstation # [id number] Dict: 10/25/21 1656 Trans: 10/25/21 1710 [facility] [id number] Interpreted by: JAMI FREEMAN MD Electronically signed by: NAME: DOMINGA HANDLEY [facility] REC#: [id number] PT STATUS: REG ER : 1995 PHYSICIAN: LAURA LOUIE MD ADMIT DATE: 10/25/21/ER FS Signed Date of Exam:10/25/21 CT ABDOMEN/PELVIS W PROCEDURE: CT abdomen and pelvis with contrast. TECHNIQUE: Multiple contiguous axial images were obtained through the abdomen and pelvis after administration of intravenous contrast. Auto Exposure Controls were utilized during the CT exam to meet ALARA standards for radiation dose reduction. All CT scans use one or more of the following dose optimizing techniques: automated exposure control, MA and/or KvP adjustment based on patient size and exam type or iterative reconstruction. INDICATION: 26-year-old female, trauma to the abdomen, two prior sections. CORRELATION STUDY: 10/25/2021. FINDINGS: LOWER THORAX: Clear. LIVER: Findings are positive for rather sizable laceration involving a large portion of the inferior right hepatic lobe. Laceration courses through proximal branchs of the right portal vein. Laceration essentially extends in transverse dimension across the entirety of the inferior right hepatic lobe for at least 6 cm. Positive pericapsular hematoma adjacent to the right hepatic lobe. Additionally, there is a moderate amount of blood in the pelvis. Question of very small amount of blush in the area of the laceration. GALLBLADDER: Present and unremarkable. No bile duct dilatation. SPLEEN: Unremarkable. PANCREAS: Unremarkable. ADRENAL GLANDS: Unremarkable. KIDNEYS: Normal configuration. No calcification or obstruction. ABDOMINAL AORTA: Unremarkable, nonaneurysmal. GASTROINTESTINAL TRACT: No definitive obstruction. No definitive evidence for asymmetric gastrointestinal wall thickening. A few fluid-filled loops of bowel noted in the pelvis. Normal appendix present. URINARY BLADDER: Unremarkable. REPRODUCTIVE: Heterogeneity about the uterus. OSSEOUS STRUCTURES: No acute abnormality. OTHER: None. IMPRESSION: 1. Rather sizable, right hepatic lobe laceration with very questionable blush in the area of laceration. Moderate amount of hemoperitoneum within the pelvis (grade IV laceration). CLINICAL FINDINGS Telephone call has been made to Dr. Louie at the [facility], 5:50 PM. Dictated by: Dictated on workstation # [id number] Dict: 10/25/211738 Trans: 10/25/211829 [facility] [id number] Interpreted by: KAYCE KHALIL DO Electronically signed by: KAYCE KHALIL DO 10/25/211829 Critical Care Note Critical Care Total Time (minutes) 65 minutes Departure Communication (Admissions) Time/Spoke to Admitting Phy: 17:[address] Cheung was informed at 1742 and recommended to transfer patient to [facility]. Impression Primary Impression: Traumatic hemoperitoneum Qualified Codes: S36.899D - Unspecified injury of other intra-abdominal organs, subsequent encounter Additional Impressions: Abdominal injury Qualified Codes: S39.91XA - Unspecified injury of abdomen, initial encounter Liver laceration, grade IV, with open wound into cavity Qualified Codes: S36.116S - Major laceration of liver, sequela; S31.109S - Unspecified open wound of abdominal wall, unspecified quadrant without penetration into peritoneal cavity, sequela Disposition: 30 STILL A PATIENT Condition: Improved Admissions Decision to Admit Reason: Admit from ER (Trauma) Decision to Admit/Date: Oct 25, 2021 Time/Decision to Admit Time: 17:48 Departure-Patient Inst. Referrals: CHIDI NORTON APRN (PCP) Primary Care Physician [facility] (Family) Primary Care Physician LAURA LOUIE MD Oct 25, 2021 16:08
--- NOTE | 2021-10-25 16:58 | Diagnostic Imaging Report ---
INDICATION: Injury, pain. FINDINGS: Three-view right shoulder performed. There is likely an os acromiale with a normal appearance of the acromioclavicular joint and coracoclavicular intervals. The glenohumeral articulation appears normal. No fracture identified. IMPRESSION: A variant os acromiale noted but no shoulder fracture, dislocation or traumatic malalignment. Dictated by: Dictated on workstation # [id number]
--- NOTE | 2021-10-25 17:07 | Diagnostic Imaging Report ---
PROCEDURE: CT head and CT cervical spine without contrast. TECHNIQUE: Multiple contiguous axial images were obtained through the brain and cervical spine without the use of intravenous contrast. Sagittal and coronal reformations through the cervical spine were then performed. Auto Exposure Controls were utilized during the CT exam to meet ALARA standards for radiation dose reduction. INDICATION: Fall with loss of consciousness. COMPARISON: No prior studies are available for comparison. CT HEAD: Ventricles and sulci are within normal limits. No sulcal effacement or midline shift is identified. No acute intra-axial or extra-axial hemorrhage is detected. Cisterns are patent. The visualized paranasal sinuses are clear. IMPRESSION: No acute intracranial process is detected. CT CERVICAL SPINE: Curvature and alignment of the cervical spine is normal. No fracture or subluxation is identified. Prevertebral tissues are normal. Odontoid is intact. IMPRESSION: No acute bony abnormality is detected. Dictated by: Dictated on workstation # [id number]
--- NOTE | 2021-10-25 17:11 | Diagnostic Imaging Report ---
PROCEDURE: CT chest, abdomen, and pelvis without contrast. TECHNIQUE: Multiple contiguous axial images were obtained through the chest, abdomen, and pelvis without the use of intravenous contrast. Auto Exposure Controls were utilized during the CT exam to meet ALARA standards for radiation dose reduction. INDICATION: Trauma, kicked by a cow with pain and bruising. CT CHEST: Study is somewhat limited due to absence of intravenous contrast. No definite mediastinal hematoma is identified. No pericardial or pleural fluid is detected. No pulmonary contusion or evidence of pneumothorax is detected. Bony structures appear intact. IMPRESSION: Unremarkable noncontrast CT of the chest. CT ABDOMEN/PELVIS: Evaluation of solid organ viscera is limited due to absence of intravenous contrast. No definite hepatic or splenic injury is seen, however, there does appear to be a small amount of high density fluid within the gutters bilaterally suggestive of a hemoperitoneum. There is a moderate amount of free fluid in the pelvis as well which appears to be higher density consistent with blood. Exact site of origin is indeterminate. No definite pancreatic, adrenal or renal injury is seen. The bowel loops are normal caliber. Bladder and uterus are unremarkable. No fractures are identified. IMPRESSION: There are findings consistent with a hemoperitoneum. Exact site of injury is indeterminate. Postcontrast study would be recommended. Dictated by: Dictated on workstation # [id number]
[2021-10-25] MEDS ORDERED: ONDANSETRON 4 MG/2 ML (SDV) Z0FRAN IVP ONE (17:15)
[2021-10-25] MEDS ORDERED: CATHETER FLUSH 10 ML SYR IV PRN (17:15)
[2021-10-25] MEDS ORDERED: IOHEXOL 350 MG/ML 100 ML (OMNIPAQUE 350) VIAL IV ONE (17:15)
[2021-10-25] MEDS ORDERED: HOLD METFORMIN - RECEIVED CONTRAST 20 ML VIAL IV SCH (17:15)
[2021-10-25] MEDS ORDERED: NS 100 ML (IVPB) BAG IV ONE (17:15)
[2021-10-25] MEDS ORDERED: NS IV 1000 ML 1,000 ML IV SCH (17:15)
[2021-10-25] MEDS ORDERED: fentaNYL INJ 100 MCG/2 ML AMP IVP ONE (17:15)
[2021-10-25 17:17] LABS: HEMATOCRIT 34 % (35-52); HEMOGLOBIN 11.6 g/dL (11.5-16.0); MEAN CORPUSCULAR HEMOGLOBIN 30 pg (25-34); MEAN CORPUSCULAR HGB CONC 35 g/dL (32-36); MEAN CORPUSCULAR VOLUME 86 fL (80-99); MEAN PLATELET VOLUME 8.4 fL (9.0-12.2); PLATELET COUNT 244 10^3/uL (130-400); WHITE BLOOD COUNT 10.9 10^3/uL (4.3-11.0)
[2021-10-25 17:35] LABS: BILIRUBIN,TOTAL 0.3 MG/DL (0.1-1.0); BUN/CREATININE RATIO 9; CARBON DIOXIDE 25 MMOL/L (21-32); CHLORIDE 107 MMOL/L (98-107); CREATININE SERUM 0.68 MG/DL (0.60-1.30); GFR ESTIMATED 122; GLUCOSE 103 MG/DL (70-105); POTASSIUM 3.2 MMOL/L (3.6-5.0); SODIUM 143 MMOL/L (135-145)
[2021-10-25 17:36] LABS: ALANINE AMINOTRANSFERASE 108 U/L (0-55); ALBUMIN 4.7 GM/DL (3.2-4.5); ALKALINE PHOSPHATASE 66 U/L (40-136); BILIRUBIN,DIRECT < 0.2 MG/DL (0.0-0.3); BILIRUBIN,INDIRECT 0.1 MG/DL; TOTAL PROTEIN 6.7 GM/DL (6.4-8.2)
--- NOTE | 2021-10-25 18:12 | Diagnostic Imaging Report ---
PROCEDURE: CT abdomen and pelvis with contrast. TECHNIQUE: Multiple contiguous axial images were obtained through the abdomen and pelvis after administration of intravenous contrast. Auto Exposure Controls were utilized during the CT exam to meet ALARA standards for radiation dose reduction. All CT scans use one or more of the following dose optimizing techniques: automated exposure control, MA and/or KvP adjustment based on patient size and exam type or iterative reconstruction. INDICATION: 26-year-old female, trauma to the abdomen, two prior sections. CORRELATION STUDY: 10/25/2021. FINDINGS: LOWER THORAX: Clear. LIVER: Findings are positive for rather sizable laceration involving a large portion of the inferior right hepatic lobe. Laceration courses through proximal branchs of the right portal vein. Laceration essentially extends in transverse dimension across the entirety of the inferior right hepatic lobe for at least 6 cm. Positive pericapsular hematoma adjacent to the right hepatic lobe. Additionally, there is a moderate amount of blood in the pelvis. Question of very small amount of blush in the area of the laceration. GALLBLADDER: Present and unremarkable. No bile duct dilatation. SPLEEN: Unremarkable. PANCREAS: Unremarkable. ADRENAL GLANDS: Unremarkable. KIDNEYS: Normal configuration. No calcification or obstruction. ABDOMINAL AORTA: Unremarkable, nonaneurysmal. GASTROINTESTINAL TRACT: No definitive obstruction. No definitive evidence for asymmetric gastrointestinal wall thickening. A few fluid-filled loops of bowel noted in the pelvis. Normal appendix present. URINARY BLADDER: Unremarkable. REPRODUCTIVE: Heterogeneity about the uterus. OSSEOUS STRUCTURES: No acute abnormality. OTHER: None. IMPRESSION: 1. Rather sizable, right hepatic lobe laceration with very questionable blush in the area of laceration. Moderate amount of hemoperitoneum within the pelvis (grade IV laceration). CLINICAL FINDINGS Telephone call has been made to Dr. Valdez at the [place] [facility], 5:50 PM. Dictated by: Dictated on workstation # [id number]
[2021-10-25] MEDS ORDERED: NS IV 500 ML 500 ML IV PRN (19:30)
--- NOTE | 2021-10-25 19:53 | Tele-ICU Progress Note ---
Progress Note 26F with astham, bipolar, seizures vs psuedoseizures, csection x2, chronic anemia presented after being kicked by a cow at work. Struck on the right lower chest and abdomen, flew an unknown distance through the air and landed on gravel/concrete. No LOC. CT in ED showed hemoperitoneum of unknown origin. She was accepted for transfer, after which results for CT with contrast showed large liver laceration with active bleeding. Additional imaging negative for acute injury. CT ABD/Pel: "rather sizable laceration involving a large portion of the inferior right hepatic lobe. Laceration courses through proximal branchs of the right portal vein. Laceration essentially extends in transverse dimension across the entirety of the inferior right hepatic lobe for at least 6 cm. Positive pericapsular hematoma adjacent to the right hepatic lobe. Additionally, there is a moderate amount of blood in the pelvis. Question of very small amount of blush in the area of the laceration." - liver lac: RN calling surgery for immediate update. Will send STAT repeat labs including type and screen, coags, fibrinogen. Hg 11.6 at 1713, at baseline around 12. Currently HD stable with BP 105/68, HR 74. She is alert and appropriate. Focused Exam Height, Weight, BMI Height: 5'1.00" Weight: 132lbs. 0.0oz. 59.478547ia; 19.00 BMI Method:Stated ZHANNA FULLER MD Oct 25, 2021 19:53
[2021-10-25] MEDS ORDERED: ONDANSETRON 4 MG/2 ML (SDV) Z0FRAN IVP PRN (20:00)
[2021-10-25] MEDS: NS IV 1000 ML 1,000 ML IV SCH (20:45)
--- NOTE | 2021-10-25 21:14 | Consultation - Surgery ---
History of Present Illness History of Present Illness Patient Consulted On(hiram/time) 10/25/21 21:09 Time Seen by Provider: 18:02 History of Present Illness Surgery asked to consult/admit for Trauma with Liver Lac. HPI per ED: Patient reports she works at the [employer] in [facility]. She reports she was trying to move some cows and got kicked. She reports the cow's hoof caught her right side, states she landed on the ground. She denies loss of consciousness, states the right/back side of her head is tender, reports neck pain, right shoulder pain, right abd/rib pain, and lower back pain. 26-year-old female patient with history of asthma, seizure disorder, bipolar disorder and PTSD stated she was treated on right side of lower chest and abdomen by a cow and she was in the air for a while and fell on gravel/concrete without loss of consciousness. Patient complaining of pain in his head and neck, right shoulder, right side of abdomen and her lower back and rated her pain 7/10. Patient denies focal neurodeficit, fever or chills, shortness of breath. Patient states she had mild nausea after injury that resolved at arrival to ER. Occurred: Just Prior to Arrival When I spoke to the patient: she was in the ICU, resting comfortably in bed and on the phone face timing with her mother. She stated she had some abdominal pain which was about a 4 at [place]. There they gave her some pain medi cations and the pain is coming back and starting to increase. She denies any shortness of breath, denies any chest pain, stated the pain was a all over her abdomen but also more so in the lower portion Allergies and Home Medications Allergies Coded Allergies: No Known Drug Allergies (Unverified , 11/17/17) Patient Home Medication List Home Medication List Reviewed: Yes Amoxicillin/Potassium Clav (Augmentin 875-125 Tablet) 1 Each Tablet, 1 EACH PO BID Prescribed by: BEULAH LYLE on 04/03/20 0650 Cyclobenzaprine HCl (Cyclobenzaprine HCl) 5 Mg Tablet, (Reported) Entered as Reported by: ENZO WYNNE on 12/10/19 1612 Diclofenac Sodium (Diclofenac Sodium) 75 Mg Tablet., 75 MG PO BID Prescribed by: HANDY ALBERT on 12/10/19 1627 Hydrocodone/Acetaminophen (Hydrocodone-Acetamin 5-325 mg) 1 Each Tablet, 1 TAB PO Q6H PRN for PAIN-SEVERE (8-10) Prescribed by: MARIA DE JESUS DIAZ on 11/26/20 1728 Hydrocodone/Ibuprofen (Ibudone 10-200 mg Tablet) 1 Each Tablet, 1 EACH PO Q6H Prescribed by: MICHEAL RAYA on 07/01/19 1122 Ibuprofen (Ibuprofen) 800 Mg Tablet, 800 MG PO Q8H PRN for PAIN Prescribed by: HANDY JOHNSON on 04/23/19 1538 Phenazopyridine HCl (Pyridium) 200 Mg Tablet, 1 TAB PO TID Prescribed by: BEULAH LYLE on 04/03/20 0650 Tramadol HCl (Tramadol HCl) 50 Mg Tablet, 50 MG PO Q6H PRN for PAIN Prescribed by: BEULAH LYLE on 04/03/20 0650 Past Xylgzfq-Sykzmc-Gtaakr Hx Patient Social History Drug of Choice: roberto carlos Smoking Status: Current Everyday Smoker Type Used: Cigarettes 2nd Hand Smoke Exposure: Yes Recent Hopitalizations: No Alcohol Use?: No Have you traveled recently?: No Immunizations Up To Date Tetanus Booster (TDap): Less than 5yrs Seasonal Allergies Seasonal Allergies: Yes Surgeries History of Surgeries: Yes Surgeries: Section, Tubal Ligation Respiratory History of Respiratory Disorde: Yes Respiratory Disorders: Asthma Cardiovascular History of Cardiac Disorders: No Neurological History of Neurological Disord: Yes (non-epileptic seizures) Neurological Disorders: Seizure Disorder Reproductive System Hx Reproductive Disorders: No Female 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 Genitourinary History of Genitourinary Disor: No Gastrointestinal History of Gastrointestinal Di: No Musculoskeletal History of Musculoskeletal Dis: No Endocrine History of Endocrine Disorders: No HEENT History of HEENT Disorders: No Cancer History of Cancer: No Psychosocial History of Psychiatric Problem: Yes Behavioral Health Disorders: Anxiety, PTSD, Bipolar, Depression Integumentary History of Skin or Integumenta: No Blood Transfusions History of Blood Disorders: Yes (ANEMIA) Family Medical History Significant Family History: Cancer (Father at 56, "it was everywhere, paul ng, colon, throat"), Diabetes (Mother), Seizures (brother) Review of Systems-General Constitutional: No chills, No diaphoresis EENTM: No blurred vision, No double vision, No mouth swelling, No epistaxis, No throat swelling Respiratory: No cough, No dyspnea on exertion, No hemoptysis, No short of breath Cardiovascular: No chest pain, No palpitations Gastrointestinal: abdominal pain; No jaundice, No nausea, No vomiting Genitourinary: No dysuria, No frequency, No hematuria Musculoskeletal: No back pain, No joint pain; muscle stiffness, other (pain right flank) Skin: No change in color, No change in hair/nails Psychiatric/Neurological: Anxiety, Depressed, Emotional Problems, Seizure; Denies Tremors Physical Exam-General Problems Physical Exam Vital Signs Vital Signs - First Documented 10/25/21 10/25/21 15:50 20:05 Temp 36.1 Pulse 72 Resp 16 B/P (MAP) 114/97 (103) Pulse Ox 98 O2 Delivery Room Air FiO2 21 Capillary Refill : Less Than 3 Seconds General Appearance: WD/WN, no apparent distress Eyes: Bilateral Eye PERRL, Bilateral Eye EOMI HEENT: pharynx normal; No scleral icterus (R), No scleral icterus (L) Neck: non-tender, supple Respiratory: lungs clear, normal breath sounds, no respiratory distress, no accessory muscle use Cardiovascular: regular rate, rhythm, no murmur Gastrointestinal: normal bowel sounds, non tender, soft, no organomegaly, hernia (umbilical) Back: no vertebral tenderness, CVA tenderness (R) Extremities: non-tender, no pedal edema, no calf tenderness, normal capillary refill Neurologic/Psychiatric: watchstander II-XII nml as tested, no motor/sensory deficits, alert, normal mood/affect, oriented x 3 Skin: normal color, warm/dry, ecchymosis (right flank and right side of abdomen) Lymphatic: no adenopathy (neck, axilla or groin) Data Review Labs Laboratory Tests 10/25/21 17:13: White Blood Count 10.9, Red Blood Count 3.91, Hemoglobin 11.6, Hematocrit 34L, Mean Corpuscular Volume 86, Mean Corpuscular Hemoglobin 30, Mean Corpuscular Hemoglobin Concent 35, Red Cell Distribution Width 13.2, Platelet Count 244, Mean Platelet Volume 8.4L, Sodium Level 143, Potassium Level 3.2L, Chloride Level 107, Carbon Dioxide Level 25, Anion Gap 11, Blood Urea Nitrogen 6L, Creatinine 0.68, Estimat Glomerular Filtration Rate 122, BUN/Creatinine Ratio 9, Glucose Level 103, Calcium Level 9.0, Total Bilirubin 0.3, Direct Bilirubin < 0.2, Indirect Bilirubin 0.1, Aspartate Amino Transf (AST/SGOT) 150H, Alanine Aminotransferase (ALT/SGPT) 108H, Alkaline Phosphatase 66, Total Protein 6.7, Albumin 4.7H, Serum Test, Qualitative NEGATIVE Radiology Date of Exam:10/25/21 CT ABDOMEN/PELVIS W PROCEDURE: CT abdomen and pelvis with contrast. TECHNIQUE: Multiple contiguous axial images were obtained through the abdomen and pelvis after administration of intravenous contrast. Auto Exposure Controls were utilized during the CT exam to meet ALARA standards for radiation dose reduction. All CT scans use one or more of the following dose optimizing techniques: automated exposure control, MA and/or KvP adjustment based on patient size and exam type or iterative reconstruction. INDICATION: 26-year-old female, trauma to the abdomen, two prior sections. CORRELATION STUDY: 10/25/2021. FINDINGS: LOWER THORAX: Clear. LIVER: Findings are positive for rather sizable laceration involving a large portion of the inferior right hepatic lobe. Laceration courses through proximal branchs of the right portal vein. Laceration essentially extends in transverse dimension across the entirety of the inferior right hepatic lobe for at least 6 cm. Positive pericapsular hematoma adjacent to the right hepatic lobe. Additionally, there is a moderate amount of blood in the pelvis. Question of very small amount of blush in the area of the laceration. GALLBLADDER: Present and unremarkable. No bile duct dilatation. SPLEEN: Unremarkable. PANCREAS: Unremarkable. ADRENAL GLANDS: Unremarkable. KIDNEYS: Normal configuration. No calcification or obstruction. ABDOMINAL AORTA: Unremarkable, nonaneurysmal. GASTROINTESTINAL TRACT: No definitive obstruction. No definitive evidence for asymmetric gastrointestinal wall thickening. A few fluid-filled loops of bowel noted in the pelvis. Normal appendix present. URINARY BLADDER: Unremarkable. REPRODUCTIVE: Heterogeneity about the uterus. OSSEOUS STRUCTURES: No acute abnormality. OTHER: None. IMPRESSION: 1. Rather sizable, right hepatic lobe laceration with very questionable blush in the area of laceration. Moderate amount of hemoperitoneum within the pelvis (grade IV laceration). CLINICAL FINDINGS Telephone call has been made to Dr. Valdez at the [place] [facility], 5:50 PM. Dictated by: Dictated on workstation # [id number] Dict: 10/25/21 1739 Trans: 10/25/211829 [facility] [id number] Interpreted by: KAYCE KHALIL DO Electronically signed by: KAYCE KHALIL DO 10/25/211829 Assessment/Plan Assessment/Plan Assessment/Plan Liver Laceration - Grade IV Hemoperitneum Trauma - Kicked by a cow Seizure disorder I spoke to the patient regarding our planned course of treatment. I did review the CT myself and it is a very large liver laceration. The radiologist called a questionable blush; I am not sure I see that but maybe I could convince myself there is a very very questionable blush, nothing obvious. She looks completely fine and her vitals are rock stable and have not changed since she was in [facility]. She does have some moderate pain, but that is being controlled with pain medications. I told her that the plan was to monitor her hemoglobin and coags every 6 hours. That I did expect them to go down, but that hopefully we would not need to do any further procedures. I did tell her that her options would be interventional radiology, open exploration or combination of both. I did explain to her that grade 1 through 3 liver lacerations almost always are able to be controlled with nonoperative management. However only 33% of grade 4 liver lacerations can be controlled with nonoperative management. However she does look good her vitals are stable she does not have a blush and obvious blush on CT and therefore hopefully should be and that 33%. She is aware that we do not have a interventional radiology here and would need to be transferred and there is a possibility of the need to possibly do an exploratory laparotomy with packing and then transfer. I will write for some Ativan because of her seizure disorder for just in case she has a seizure. She will get IV fluids, pain meds, antiemetics if needed and serial labs as well as abdominal exams. All questions answered to her satisfaction. ANKITA GATICA DO Oct 25, 2021 21:14
[2021-10-25] MEDS ORDERED: MIRT7.5T8 PO (21:23)
[2021-10-25] MEDS ORDERED: DULO60CA59 PO (21:23)
[2021-10-25 21:44] LABS: INR 1.1 (0.8-1.4); PROTHROMBIN TIME PATIENT 14.9 SEC (12.2-14.7)
[2021-10-25] MEDS: morphine INJ 4 MG/ML 1 ML (VIAL/SYRINGE) IVP PRN (22:40)
[2021-10-25] MEDS: fentaNYL INJ 100 MCG/2 ML AMP IVP PRN (23:36)
[2021-10-25 23:58] LABS: BASOPHILS % (AUTO) 0 % (0-10); EOSINOPHILS % (AUTO) 0 % (0-10); HEMATOCRIT 29 % (35-52); HEMOGLOBIN 9.8 g/dL (11.5-16.0); LYMPHOCYTES # (AUTO) 2.5 10^3/uL (1.0-4.0); LYMPHOCYTES % (AUTO) 23 % (12-44); MEAN CORPUSCULAR HEMOGLOBIN 30 pg (25-34); MEAN CORPUSCULAR HGB CONC 34 g/dL (32-36); MEAN CORPUSCULAR VOLUME 87 fL (80-99); MONOCYTES # (AUTO) 0.8 10^3/uL (0.0-1.0); MONOCYTES % (AUTO) 7 % (0-12); NEUTROPHILS # (AUTO) 7.6 10^3/uL (1.8-7.8); NEUTROPHILS % (AUTO) 69 % (42-75); PLATELET COUNT 229 10^3/uL (130-400)
[2021-10-26] VITALS (24 sets, daily range): BP systolic 111–139; BP diastolic 68–92
[2021-10-26 00:48] LABS: LYMPHOCYTES % (MANUAL) 22 %; MONOCYTES % (MANUAL) 5 %; NEUTROPHILS % (MANUAL) 73 %
[2021-10-26] MEDS: morphine INJ 4 MG/ML 1 ML (VIAL/SYRINGE) IVP PRN ×8 (02:58→21:53)
[2021-10-26] MEDS: NS IV 1000 ML 1,000 ML IV SCH ×4 (04:55→22:00)
[2021-10-26 06:46] LABS: HEMOGLOBIN 9.5 g/dL (11.5-16.0)
[2021-10-26 06:56] LABS: ALBUMIN 3.4 GM/DL (3.2-4.5); POTASSIUM 3.3 MMOL/L (3.6-5.0)
[2021-10-26 06:57] LABS: CALCIUM 7.8 MG/DL (8.5-10.1)
[2021-10-26 06:58] LABS: TOTAL PROTEIN 5.3 GM/DL (6.4-8.2)
[2021-10-26 07:00] LABS: BILIRUBIN,TOTAL 0.7 MG/DL (0.1-1.0)
[2021-10-26 07:02] LABS: CREATININE SERUM 0.58 MG/DL (0.60-1.30); PHOSPHORUS 2.6 MG/DL (2.3-4.7)
[2021-10-26 07:05] LABS: MAGNESIUM 1.8 MG/DL (1.6-2.4)
[2021-10-26] MEDS: MAGNESIUM 1 GM/100 ML IVPB 100 ML IV SCH (07:21)
[2021-10-26] MEDS: KCL 20 MEQ TAB (K-DUR) PO SCH (07:30)
[2021-10-26] MEDS: POTASSIUM CL 10MEQ/50ML IVPB 50 ML IV SCH ×3 (07:30→09:27)
[2021-10-26] MEDS: fentaNYL INJ 100 MCG/2 ML AMP IVP PRN ×7 (07:37→18:07)
[2021-10-26] MEDS ORDERED: LORazepam INJ 2 MG/ML (ATIVAN) VIAL IVP PRN (09:30)
[2021-10-26] MEDS ORDERED: morphine INJ 10 MG/ML 1ML (SYR OR VIAL) IVP STA (09:44)
[2021-10-26] MEDS ORDERED: morphine INJ 4 MG/ML 1 ML (VIAL/SYRINGE) IVP STA (09:47)
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
[2021-10-26 13:20] LABS: HEMOGLOBIN 9.5 g/dL (11.5-16.0)
[2021-10-26 18:43] LABS: HEMOGLOBIN 9.6 g/dL (11.5-16.0)
[2021-10-27] VITALS (13 sets, daily range): BP systolic 112–137; BP diastolic 70–83
[2021-10-27] MEDS: morphine INJ 4 MG/ML 1 ML (VIAL/SYRINGE) IVP PRN ×5 (00:44→10:32)
[2021-10-27 00:56] LABS: HEMOGLOBIN 9.8 g/dL (11.5-16.0)
[2021-10-27 05:14] LABS: BASOPHILS % (AUTO) 0 % (0-10); EOSINOPHILS # (AUTO) 0.3 10^3/uL (0.0-0.3); EOSINOPHILS % (AUTO) 4 % (0-10); HEMATOCRIT 27 % (35-52); HEMOGLOBIN 9.3 g/dL (11.5-16.0); LYMPHOCYTES # (AUTO) 1.6 10^3/uL (1.0-4.0); LYMPHOCYTES % (AUTO) 22 % (12-44); MEAN CORPUSCULAR HEMOGLOBIN 30 pg (25-34); MEAN CORPUSCULAR HGB CONC 34 g/dL (32-36); MEAN CORPUSCULAR VOLUME 88 fL (80-99); MEAN PLATELET VOLUME 8.7 fL (9.0-12.2); MONOCYTES # (AUTO) 0.7 10^3/uL (0.0-1.0); MONOCYTES % (AUTO) 9 % (0-12); NEUTROPHILS % (AUTO) 65 % (42-75); PLATELET COUNT 183 10^3/uL (130-400); WHITE BLOOD COUNT 7.6 10^3/uL (4.3-11.0)
[2021-10-27 05:19] LABS: ALBUMIN 3.4 GM/DL (3.2-4.5); CHLORIDE 105 MMOL/L (98-107); POTASSIUM 3.5 MMOL/L (3.6-5.0); SODIUM 137 MMOL/L (135-145)
[2021-10-27 05:22] LABS: GLUCOSE 86 MG/DL (70-105); TOTAL PROTEIN 5.3 GM/DL (6.4-8.2)
[2021-10-27 05:23] LABS: BILIRUBIN,TOTAL 1.1 MG/DL (0.1-1.0); CARBON DIOXIDE 22 MMOL/L (21-32)
[2021-10-27 05:25] LABS: ALKALINE PHOSPHATASE 49 U/L (40-136); PHOSPHORUS 2.4 MG/DL (2.3-4.7)
[2021-10-27 05:26] LABS: CREATININE SERUM 0.56 MG/DL (0.60-1.30); GFR ESTIMATED 128
[2021-10-27 05:27] LABS: BUN/CREATININE RATIO 4
[2021-10-27 05:28] LABS: ALANINE AMINOTRANSFERASE 76 U/L (0-55); MAGNESIUM 1.6 MG/DL (1.6-2.4)
[2021-10-27] MEDS: POTASSIUM CL 10MEQ/50ML IVPB 50 ML IV SCH (06:25)
[2021-10-27] MEDS: MAGNESIUM 1 GM/100 ML IVPB 100 ML IV SCH (06:25)
[2021-10-27] MEDS: NS IV 1000 ML 1,000 ML IV SCH ×2 (06:26→12:45)
[2021-10-27] MEDS: KCL 20 MEQ TAB (K-DUR) PO SCH (06:26)
--- NOTE | 2021-10-27 07:34 | Progress Note - Surgery ---
TULIO LAY 10/27/21 0734: Subjective Date Seen by a Provider: Oct 27, 2021 Time Seen by a Provider: 07:05 Subjective/Events-last exam Pt resting in bed, stating she got more sleep last night. States her pain is at 8/10 although she is about to receive her next round of pain meds. States the pain meds manage her pain well. Notes she still has pain with deep breaths. She is tolerating liquid diet well. Nurse reports she is urinating 400-500 ml every hour. She had some nausea last night, but no vomiting. She has not yet had a bowel movement. She denies fever, chills, vomiting, headache, chest pain, or any other complaints. Review of Systems General: No Chills, No Night Sweats HEENT: No Head Aches, No Visual Changes Pulmonary: No Dyspnea Cardiovascular: No: Chest Pain Gastrointestinal: Nausea, Abdominal Pain (right sided); No: Vomiting Genitourinary: No Retention Objective Exam Vital Signs Date Time Temp Pulse Resp B/P (MAP) Pulse Ox O2 Delivery O2 Flow Rate FiO2 10/27/21 06:00 69 21 128/76 (96) 97 Room Air 10/27/21 05:00 68 13 112/71 (85) 96 Room Air 10/27/21 04:00 67 13 116/83 (91) 96 Room Air 10/27/21 03:00 81 16 119/75 (90) 95 Room Air 10/27/21 02:00 74 14 123/74 (94) 97 Room Air 10/27/21 01:00 70 10/27/21 01:00 70 23 115/71 (89) 95 Room Air 10/27/21 00:00 79 8 117/70 (92) 97 Room Air 10/26/21 23:29 99 Room Air 10/26/21 23:00 91 14 129/78 (96) 92 Room Air 10/26/21 22:00 76 18 124/76 (90) 95 Room Air 10/26/21 21:00 78 14 121/72 (88) 99 Room Air 10/26/21 20:00 71 17 128/88 (100) 95 Room Air 10/26/21 19:35 99 Room Air 10/26/21 19:15 82 13 139/92 (105) 97 Room Air 10/26/21 19:04 95 10/26/21 19:00 87 19 98 Room Air 10/26/21 18:00 72 27 131/86 (101) 94 Room Air 10/26/21 17:00 75 15 119/78 (92) 99 Room Air 10/26/21 16:19 99 Room Air 10/26/21 16:00 67 11 127/76 (93) 97 Room Air 10/26/21 15:18 36.4 10/26/21 15:14 99 Room Air 10/26/21 15:00 85 19 119/82 (94) 98 Room Air 10/26/21 14:00 62 15 111/75 (87) 97 Room Air 10/26/21 13:00 61 17 128/79 (95) 95 Room Air 10/26/21 12:57 71 10/26/21 12:14 36.9 10/26/21 12:01 93 Room Air 10/26/21 12:00 76 15 115/72 (86) 91 Room Air 10/26/21 11:00 66 13 116/76 (89) 96 Room Air 10/26/21 10:00 79 23 115/72 (86) 96 Room Air 10/26/21 09:00 67 13 124/76 (92) 97 Room Air 10/26/21 08:44 95 Room Air 10/26/21 08:00 66 13 122/70 (87) 97 Room Air 10/26/21 07:34 36.2 I & O 10/27/21 06:59 Intake Total 2520 ml Output Total 750 ml Balance 1770 ml Capillary Refill : Less Than 3 Seconds General Appearance: WD/WN, Mild Distress (secondary to pain), Thin HEENT: PERRL/EOMI, Pharynx Normal, Moist Mucous Membranes Neck: Non Tender, Supple Respiratory: Lungs Clear, Normal Breath Sounds, No Accessory Muscle Use, No Respiratory Distress Cardiovascular: Regular Rate, Rhythm, No Gallop, No Murmur Peripheral Pulses: 2+ Radial Pulses (R), 2+ Radial Pulses (L) Gastrointestinal: normal bowel sounds, soft, no organomegaly, guarding (voluntary ), tenderness (RUQ and RLQ), hernia (umbilical, reducible) Extremity: No Calf Tenderness, No Pedal Edema Neurologic/Psychiatric: Alert, Oriented x3, Normal Mood/Affect Skin: Normal Color, Warm/Dry Lymphatic: No Adenopathy (supraclavicular nodes) Results Lab Laboratory Tests 10/26/21 13:00: Hemoglobin 9.5L, Hematocrit 28L 10/26/21 18:40: Hemoglobin 9.6L, Hematocrit 29L 10/27/21 00:50: Hemoglobin 9.8L, Hematocrit 29L 10/27/21 05:04: Hemoglobin 9.3L, Hematocrit 27L, White Blood Count 7.6, Red Blood Count 3.11L, Mean Corpuscular Volume 88, Mean Corpuscular Hemoglobin 30, Mean Corpuscular Hemoglobin Concent 34, Red Cell Distribution Width 13.0, Platelet Count 183, M bang Platelet Volume 8.7L, Immature Granulocyte % (Auto) 0, Neutrophils (%) (Auto) 65, Lymphocytes (%) (Auto) 22, Monocytes (%) (Auto) 9, Eosinophils (%) (Auto) 4, Basophils (%) (Auto) 0, Neutrophils # (Auto) 5.0, Lymphocytes # (Auto) 1.6, Monocytes # (Auto) 0.7, Eosinophils # (Auto) 0.3, Basophils # (Auto) 0.0, Immature Granulocyte # (Auto) 0.0, Sodium Level 137, Potassium Level 3.5L, Chloride Level 105, Carbon Dioxide Level 22, Anion Gap 10, Blood Urea Nitrogen < 2L, Creatinine 0.56L, Estimat Glomerular Filtration Rate 128, BUN/Creatinine Ratio 4, Glucose Level 86, Calcium Level 8.0L, Corrected Calcium 8.5, Phosphorus Level 2.4, Magnesium Level 1.6, Total Bilirubin 1.1H, Aspartate Amino Transf (AST/SGOT) 51H, Alanine Aminotransferase (ALT/SGPT) 76H, Alkaline Phosphatase 49, Total Protein 5.3L, Albumin 3.4 Microbiology 10/25/21 MRSA Screen - Final, Complete MRSA not isolated Assessment/Plan Assessment/Plan Assessment/Plan Liver Laceration - Grade IV Hemoperitneum Hypokalemia Trauma - Kicked by a cow Seizure disorder Vitals remain stable. Her pain has increased to 8/10, will control with morphine. Her hemoglobin was 9.5 yesterday and is 9.3 this morning. Will continue to monitor labs and abdominal exams. If hemoglobin remains stable she will be d/c, with discussion of restrictions such as no working with large animals, no lifting heavy things, and avoidance of any trauma to stomach. P otassium levels have improved. KINGSTON CHEUNG DO 10/27/21 1440: Subjective Time Seen by a Provider: 12:51 Subjective/Events-last exam Pt seen and examined, states the PO pain meds helped much better. She is eager to go home. Review of Systems General: No Chills, No Night Sweats HEENT: No Head Aches Pulmonary: No Dyspnea, No Cough Cardiovascular: No: Chest Pain Gastrointestinal: Nausea, Abdominal Pain (right sided); No: Vomiting Objective Exam General Appearance: Mild Distress (secondary to pain), Thin HEENT: Pharynx Normal, Moist Mucous Membranes Respiratory: Lungs Clear, Normal Breath Sounds, No Accessory Muscle Use, No Respiratory Distress Cardiovascular: Regular Rate, Rhythm, No Murmur Gastrointestinal: soft, no organomegaly, guarding (voluntary ), tenderness (RUQ and RLQ), hernia (umbilical, reducible) Extremity: No Calf Tenderness Assessment/Plan Assessment/Plan Assessment/Plan Liver Laceration - Grade IV Hemoperitneum Hypokalemia Trauma - Kicked by a cow Seizure disorder Vitals remain stable. Her pain has increased to 8/10, will control with morphine. Her hemoglobin was 9.5 yesterday and is 9.3 this morning. Will d/c pt home. Had discussion of restrictions such as no working with large animals, no lifting heavy things, and avoidance of any trauma to stomach. Potassium levels have improved. Supervisory-Addendum Brief Verification & Attestation Participated in pt care: history, MDM, physical Personally performed: exam, history, MDM, supervision of care Care discussed with: Medical Student Procedures: n/a Verification and Attestation of Medical Student E/M Service A medical student performed and documented this service. I then reviewed and verified all information documented by the medical student and made modifications to such information, when appropriate. I personally performed a physical exam, medical decision making and then discussed any differences between the notes and made revisions as necessary to create one note. Kingston Cheung , 10/27/21 , 14:40 TULIO LAY Oct 27, 2021 07:34 KINGSTON CHEUNG DO Oct 27, 2021 14:40
--- NOTE | 2021-10-27 08:16 | Tele-ICU Progress Note ---
Subjective Date Seen by a Provider: Oct 27, 2021 Time Seen by a Provider: 08:15 Subjective/Events-last exam 26 F suffered liver laceration after being kicked by cow. CT abd showed right liver lobe sizable laceration with small hemoperitoneum. Hb has been stable in 9's Hit head on concrete but CT head ok, alert and oriented Still in pain requiring IV morphine about every 2 hours Bruise on abd is staying same Sepsis Event Evaluation Height, Weight, BMI Height: 5'1.00" Weight: 132lbs. 0.0oz. 59.724997vw; 19.00 BMI Method:Stated Exam Exam Patient acknowledged, consented, and participated in this virtual visit which was conducted using real time audio/video Vital Signs Date Time Temp Pulse Resp B/P (MAP) Pulse Ox O2 Delivery O2 Flow Rate FiO2 10/27/21 06:00 69 21 128/76 (96) 97 Room Air 10/27/21 05:00 68 13 112/71 (85) 96 Room Air 10/27/21 04:00 67 13 116/83 (91) 96 Room Air 10/27/21 04:00 99 Room Air 10/27/21 03:00 81 16 119/75 (90) 95 Room Air 10/27/21 02:00 74 14 123/74 (94) 97 Room Air 10/27/21 01:00 70 10/27/21 01:00 70 23 115/71 (89) 95 Room Air 10/27/21 00:00 79 8 117/70 (92) 97 Room Air 10/26/21 23:29 99 Room Air 10/26/21 23:00 91 14 129/78 (96) 92 Room Air 10/26/21 22:00 76 18 124/76 (90) 95 Room Air 10/26/21 21:00 78 14 121/72 (88) 99 Room Air 10/26/21 20:00 71 17 128/88 (100) 95 Room Air 10/26/21 19:35 99 Room Air 10/26/21 19:15 82 13 139/92 (105) 97 Room Air 10/26/21 19:04 95 10/26/21 19:00 87 19 98 Room Air 10/26/21 18:00 72 27 131/86 (101) 94 Room Air 10/26/21 17:00 75 15 119/78 (92) 99 Room Air 10/26/21 16:19 99 Room Air 10/26/21 16:00 67 11 127/76 (93) 97 Room Air 10/26/21 15:18 36.4 10/26/21 15:14 99 Room Air 10/26/21 15:00 85 19 119/82 (94) 98 Room Air 10/26/21 14:00 62 15 111/75 (87) 97 Room Air 10/26/21 13:00 61 17 128/79 (95) 95 Room Air 10/26/21 12:57 71 10/26/21 12:14 36.9 10/26/21 12:01 93 Room Air 10/26/21 12:00 76 15 115/72 (86) 91 Room Air 10/26/21 11:00 66 13 116/76 (89) 96 Room Air 10/26/21 10:00 79 23 115/72 (86) 96 Room Air 10/26/21 09:00 67 13 124/76 (92) 97 Room Air 10/26/21 08:44 95 Room Air I & O 10/27/21 07:00 Intake Total 3520 ml Output Total 4350 ml Balance -830 ml Height & Weight Height: 5'1.00" Weight: 132lbs. 0.0oz. 59.350077bo; 19.00 BMI Method:Stated General Appearance: WD/WN, Mild Distress (secondary to pain, still talking without difficulty. ), Thin HEENT: PERRL/EOMI, Pharynx Normal, Moist Mucous Membranes Neck: Non Tender, Supple Respiratory: Lungs Clear, Normal Breath Sounds, No Accessory Muscle Use, No Respiratory Distress Cardiovascular: Regular Rate, Rhythm, No Gallop, No Murmur Capillary Refill: Less Than 3 Seconds Peripheral Pulses: 2+ Radial Pulses (R), 2+ Radial Pulses (L) Gastrointestinal: normal bowel sounds, soft, no organomegaly, guarding (voluntary ), tenderness (RUQ and RLQ), hernia (umbilical, reducible), other (Has bruise RUQ, staying same size) Extremity: No Calf Tenderness, No Pedal Edema Neurologic/Psychiatric: Alert, Oriented x3, Normal Mood/Affect Skin: Normal Color, Warm/Dry Lymphatic: No Adenopathy (supraclavicular nodes) Results Lab Laboratory Tests 10/25/21 17:13 10/25/21 23:28 10/26/21 06:40 10/26/21 13:00 10/26/21 18:40 10/27/21 00:50 10/27/21 05:04 Assessment/Plan Assessment/Plan right lobe liver laceration from blunt trauma, Hb has been stable, will observe PRN pain meds able to void, may be able to go home today Critical Care: Critically Ill Patient Time spent with patient (mins): 30 JEMAL HENSON MD Oct 27, 2021 08:15
[2021-10-27] MEDS ORDERED: VARE1TAB24 PO (10:03)
[2021-10-27 12:23] LABS: HEMOGLOBIN 10.2 g/dL (11.5-16.0)
[2021-10-27] MEDS ORDERED: ACHYD1T PO (14:00)
--- NOTE | 2021-10-27 14:02 | Discharge Inst-Surgical ---
Discharge Inst-Surgical Depart Medication/Instructions New, Converted or Re-Newed RX: Transmitted to Pharmacy Patient Instructions Follow up Appt: Make appointment for 1 week. [phone] Instructions: No lifting greater than 20 pounds. No strenuous activity. May shower in 24 hours, no tub bath or soaking. Use incentive spirometer at home as directed. No Smoking Symptoms to Report: Appetite Changes, Extremity Discoloration, Numbness/Tingling, Swelling Increased, Bleeding Excessive, Eyesight Changes, Pain Increased, Urine Color Change, Constipation(Persistent), Fever over 101 degree F, Pain/Pressure in chest, Urinating Difficulty, Cough Up/Vomit Blood, Heart Beat Irreg/Pounding, Pain/Pressure in jaw, Cramps in feet or legs, Lightheadedness, Pain/Pressure in shoulder, Diarrhea(Persistent), Memory Changes Suddenly, Questions/Concerns, Weight gain consecutive days, Dizziness/Fainting, Nausea/Vomiting, Shortness of Breath, Weight gain over 2 pounds If questions or concerns contact your physician Or seek help at emergency department. Activity Activity as Tolerated: Yes (No contact sports, rough work or anything that might cause another blow to right side) Driving Instructions: No Driving/Refer to Dr. Magallanes Discharge Diet: No Restrictions Diet After 24 Hours: Clear Liquid if Nauseous If Any Problems/Questions/Issu: Contact Your Physician, Go to Emergency Room Skin/Wound Care Infection Signs and Symptoms: Increased Swelling, Temperature Above 101 F Bathing Instructions: ANKITA Alvarado DO Oct 27, 2021 14:02
== END 2021-10-27 13:57 | disposition home or self-care (01) | DRG 965 ==
LOC: EDUNIT# 15:48 → ER FS 15:50 → ICU 19:01
PROVIDERS: ADMIT Surgery; ATTEND Surgery
DX: S36.116A Major laceration of liver, initial encounter (principal); S36.81XA Injury of peritoneum, initial encounter; W18.31XA Fall on same level due to stepping on an object, initial encounter; G40.909 Epilepsy, unspecified, not intractable, without status epilepticus; F43.10 Post-traumatic stress disorder, unspecified; F31.9 Bipolar disorder, unspecified; J45.909 Unspecified asthma, uncomplicated; F17.210 Nicotine dependence, cigarettes, uncomplicated; F41.9 Anxiety disorder, unspecified; E87.6 Hypokalemia
CPT/HCPCS: 36415; 70450; 71250; 72125; 73030; 74176; 74177; 80048; 80053; 80076; 83735; 84100; 84703; 85007; 85014; 85018; 85025; 85027; 85384; 85610; 85730; 86850; 86900; 86901; 87081; 94664; Q9967

== ENCOUNTER → 2021-11-05 | Outpatient (CLI) | payer MEDICAID ==
[~2021-11-05] MED LIST changes: +ACHYD1T PO; +DULO60CA59 PO; +MIRT7.5T8 PO; +VARE1TAB24 PO
[2021-11-05 08:21] LABS: BASOPHILS # (AUTO) 0.1 10^3/uL (0.0-0.1); BASOPHILS % (AUTO) 1 % (0-10); EOSINOPHILS # (AUTO) 0.3 10^3/uL (0.0-0.3); EOSINOPHILS % (AUTO) 4 % (0-10); HEMATOCRIT 36 % (35-52); HEMOGLOBIN 12.4 g/dL (11.5-16.0); LYMPHOCYTES % (AUTO) 41 % (12-44); MEAN CORPUSCULAR HEMOGLOBIN 30 pg (25-34); MEAN CORPUSCULAR HGB CONC 35 g/dL (32-36); MEAN CORPUSCULAR VOLUME 86 fL (80-99); MEAN PLATELET VOLUME 8.3 fL (9.0-12.2); MONOCYTES # (AUTO) 0.5 10^3/uL (0.0-1.0); MONOCYTES % (AUTO) 7 % (0-12); NEUTROPHILS # (AUTO) 3.5 10^3/uL (1.8-7.8); NEUTROPHILS % (AUTO) 48 % (42-75); PLATELET COUNT 464 10^3/uL (130-400); WHITE BLOOD COUNT 7.2 10^3/uL (4.3-11.0)
== END ==
LOC: LAB FS 08:03
PROVIDERS: ATTEND Surgery
DX: D64.9 Anemia, unspecified (principal)
CPT/HCPCS: 36415; 85025

== ENCOUNTER → 2021-11-21 | Outpatient (CLI) | payer MEDICAID ==
[~2021-11-21] MED LIST changes: +CATHETER FLUSH 10 ML SYR IV PRN; +HOLD METFORMIN - RECEIVED CONTRAST 20 ML VIAL IV SCH; +IOHEXOL 350 MG/ML 100 ML (OMNIPAQUE 350) VIAL IV ONE; +NS 100 ML (IVPB) BAG IV ONE
--- NOTE | 2021-11-21 13:06 | Diagnostic Imaging Report ---
PROCEDURE: CT abdomen and pelvis with contrast. TECHNIQUE: Multiple contiguous axial images were obtained through the abdomen and pelvis after administration of intravenous contrast. Auto Exposure Controls were utilized during the CT exam to meet ALARA standards for radiation dose reduction. All CT scans use one or more of the following dose optimizing techniques: automated exposure control, MA and/or KvP adjustment based on patient size and exam type or iterative reconstruction. INDICATION: Liver laceration, kicked by cow. Study is performed for follow-up. COMPARISON: Correlation is made with prior CT from 10/25/2021. FINDINGS: The lung bases are clear. There has been some interval healing of the transversely oriented laceration involving the inferior right lobe of the liver when compared with study one month earlier. Very mild residual linear low-attenuation in the right hepatic lobe is noted. The perihepatic hemorrhage as well as the hemorrhage in the right paracolic gutter has resolved. There is some free fluid in the pelvis, however this may be physiologic. The gallbladder is unremarkable. There is normal enhancement to the liver. The pancreas and spleen are unremarkable. No adrenal mass is detected. Kidneys are unremarkable. Aorta is nonaneurysmal. The bowel loops appear to be normal in caliber. Uterus and bladder are unremarkable. There is a cyst in the left adnexa measuring 2.2 cm, likely ovarian. IMPRESSION: Overall, improved appearance of the abdomen and pelvis when compared with exam from one month earlier. There has been some interval healing of the laceration of the right hepatic lobe since prior study with resolution of hemoperitoneum. There is some free fluid in the pelvis which may be physiologic. There is also a small left adnexal cyst. Dictated by: Dictated on workstation # [id number]
== END ==
LOC: RAD FS 10:19
PROVIDERS: ATTEND Surgery
DX: S36.113D Laceration of liver, unspecified degree, subsequent encounter (principal); N83.202 Unspecified ovarian cyst, left side
CPT/HCPCS: 74177; Q9967

== ENCOUNTER 2021-12-05 14:50 | Emergency (ER) | payer MEDICAID, OTHER ==
[~2021-12-05] VITALS: Ht 154.9 cm; Wt 43.1 kg
[~2021-12-05 14:50] MED LIST changes: -CATHETER FLUSH 10 ML SYR IV PRN; -HOLD METFORMIN - RECEIVED CONTRAST 20 ML VIAL IV SCH; -IOHEXOL 350 MG/ML 100 ML (OMNIPAQUE 350) VIAL IV ONE; -NS 100 ML (IVPB) BAG IV ONE; -PLTR10OP OP; +POLY10DR31 OP
[2021-12-05] MEDS ORDERED: morphine INJ 10 MG/ML 1ML (SYR OR VIAL) IVP STA (15:08)
[2021-12-05] MEDS ORDERED: ONDANSETRON 4 MG/2 ML (SDV) Z0FRAN IVP ONE (15:15)
[2021-12-05] MEDS ORDERED: CATHETER FLUSH 10 ML SYR IV PRN (15:15)
[2021-12-05] MEDS ORDERED: IOHEXOL 350 MG/ML 100 ML (OMNIPAQUE 350) VIAL IV ONE (15:15)
[2021-12-05] MEDS ORDERED: NS 100 ML (IVPB) BAG IV ONE (15:15)
[2021-12-05] MEDS ORDERED: HOLD METFORMIN - RECEIVED CONTRAST 20 ML VIAL IV SCH (15:15)
[2021-12-05 15:16] LABS: BASOPHILS % (AUTO) 1 % (0-10); EOSINOPHILS # (AUTO) 0.4 10^3/uL (0.0-0.3); EOSINOPHILS % (AUTO) 5 % (0-10); HEMATOCRIT 34 % (35-52); HEMOGLOBIN 12.1 g/dL (11.5-16.0); LYMPHOCYTES # (AUTO) 2.9 10^3/uL (1.0-4.0); LYMPHOCYTES % (AUTO) 37 % (12-44); MEAN CORPUSCULAR HEMOGLOBIN 30 pg (25-34); MEAN CORPUSCULAR HGB CONC 35 g/dL (32-36); MEAN CORPUSCULAR VOLUME 86 fL (80-99); MEAN PLATELET VOLUME 8.9 fL (9.0-12.2); MONOCYTES # (AUTO) 0.4 10^3/uL (0.0-1.0); MONOCYTES % (AUTO) 5 % (0-12); NEUTROPHILS # (AUTO) 4.2 10^3/uL (1.8-7.8); NEUTROPHILS % (AUTO) 52 % (42-75); PLATELET COUNT 276 10^3/uL (130-400); WHITE BLOOD COUNT 7.9 10^3/uL (4.3-11.0)
[2021-12-05 15:44] LABS: ALANINE AMINOTRANSFERASE 9 U/L (0-55); ALBUMIN 4.8 GM/DL (3.2-4.5); ALKALINE PHOSPHATASE 76 U/L (40-136); BILIRUBIN,TOTAL 0.4 MG/DL (0.1-1.0); BUN/CREATININE RATIO 11; CALCIUM 9.5 MG/DL (8.5-10.1); CARBON DIOXIDE 26 MMOL/L (21-32); CHLORIDE 102 MMOL/L (98-107); CREATININE SERUM 0.75 MG/DL (0.60-1.30); GFR ESTIMATED 112; GLUCOSE 102 MG/DL (70-105); POTASSIUM 3.7 MMOL/L (3.6-5.0); SODIUM 140 MMOL/L (135-145); TOTAL PROTEIN 7.1 GM/DL (6.4-8.2)
--- NOTE | 2021-12-05 16:36 | Diagnostic Imaging Report ---
PROCEDURE: CT abdomen and pelvis with contrast. TECHNIQUE: Multiple contiguous axial images were obtained through the abdomen and pelvis after administration of intravenous contrast. Auto Exposure Controls were utilized during the CT exam to meet ALARA standards for radiation dose reduction. All CT scans use one or more of the following dose optimizing techniques: Automated exposure control, MA and/or KvP adjustment based on patient size and exam type or iterative reconstruction. INDICATION: Right upper quadrant abdominal pain. Recent liver laceration. COMPARISON: 11/21/2021. FINDINGS: Included portions of the lung bases are clear. CT ABDOMEN: Linear defect involving the posterior segment of the right lobe of the liver is again identified and corresponds to laceration described on recent CT. There is no evidence of active hemorrhage. No suspicious hepatic lesions are seen. The kidneys, adrenal glands, spleen, and pancreas have a normal CT appearance. Small bowel loops are nondistended. Normal appendix is identified. There is no loculated fluid collection, free fluid, or free air within the abdomen. No abnormal mesenteric or retroperitoneal adenopathy is seen. Osseous structures show no acute abnormalities. CT PELVIS: Urinary bladder is unopacified. No calculi are seen within the urinary bladder. There is no loculated fluid collection, free fluid, or free air. No abnormal adenopathy is seen. Osseous structures show no acute abnormalities. IMPRESSION: 1. Redemonstration of nonacute laceration injury to the right lobe of the liver. No evidence of active hemorrhage or other adverse interval change. Dictated by: Dictated on workstation # [id number]
--- NOTE | 2021-12-05 16:42 | ED Abdominal Pain ---
General Chief Complaint: Abdominal/GI Problems Stated Complaint: RUQ PAIN Nursing Triage Note: Patient states she had an abdominal injury 1 month ago with a large liver laceration. She was able to be treated without surgical intervention and discharged to home. She states she had a follow up appointment with her general surgeon 2-3 weeks ago and states her injury had almost healed. She reports she picked up her daughter today around 1045 and began having right upper quadrant abdominal pain. Source of Information: Patient Exam Limitations: No Limitations History of Present Illness Date Seen by Provider: Dec 05, 2021 Time Seen by Provider: 16:39 Initial Comments Patient is a 26-year-old female s/p right liver laceration one month ago who presents with cute onset right upper quadrant pain starting 30 minutes ago after lifting up her 60 pound 9-year-old just prior to the arrival. Patient reports extremely sharp right upper quadrant pain. She denies nausea vomiting, dizziness or lightheadedness. No chest pain palpitation shortness of breath. No back pain flank pain. No other acute symptoms or complaints. Timing/Duration: 1 Hour Severity/Quality: Moderate Location: RUQ Radiation: Other Activities at Onset: Other Modifying Factors: Improves With Other Associated Symptoms: Other Allergies and Home Medications Allergies Coded Allergies: No Known Drug Allergies (Unverified , 11/17/17) Patient Home Medication List Home Medication List Reviewed: Yes Duloxetine HCl (Duloxetine HCl) 60 Mg Capsule.dr, 60 MG PO DAILY, (Reported) Entered as Reported by: Minerva Edwrad on 10/25/212122 Hydrocodone Bit/Acetaminophen (HYDROcodone/APAP 10/325 TABLET) 1 Ea Tab, 1 EA PO Q6H PRN for PAIN-MODERATE (5-7) Prescribed by: ANKITA GATICA on 10/27/21 1400 Mirtazapine (Mirtazapine) 7.5 Mg Tablet, 7.5 MG PO HS, (Reported) Entered as Reported by: Minerva Edward on 10/25/212122 Varenicline Tartrate (Varenicline Tartrate) 1 Mg Tablet, 1 MG PO BID, (Reported) Entered as Reported by: LONA RAPP on 10/27/21 1003 Review of Systems Review of Systems Constitutional: see HPI Musculoskeletal: see HPI Past Mgdtwks-Xkbhhc-Jrsubg Hx Patient Social History Tobacco Use?: Yes Substance use?: No Alcohol Use?: No Pt feels they are or have been: No Immunizations Up To Date Tetanus Booster (TDap): Less than 5yrs Seasonal Allergies Seasonal Allergies: Yes Past Medical History Surgery/Hospitalization HX: Seizures; PTSD; Asthma; Anemia; Anxiety; Depression Surgeries: Yes Section, Tubal Ligation Respiratory: Yes Asthma Cardiac: No Neurological: Yes (non-epileptic seizures) Seizure Disorder Reproductive Disorders: No Female Reproductive Disorders: Denies [employer]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 0.0oz. 59.251947we; 17.00 BMI Method:Stated General Appearance: WD/WN, mild distress HEENT: PERRL/EOMI, normal ENT inspection Respiratory: lungs clear Cardiovascular: regular rate, rhythm Gastrointestinal: soft, tenderness Back: normal inspection Neurologic/Psychiatric: no motor/sensory deficits, alert, oriented x 3 Focused Exam Sepsis Stage: Ruled Out Progress/Results/Core Measures Results/Orders Lab Results Laboratory Tests Test 12/05/21 15:09 Range/Units White Blood Count 7.9 4.3-11.0 10^3/uL Red Blood Count 4.00 3.80-5.11 10^6/uL Hemoglobin 12.1 11.5-16.0 g/dL Hematocrit 34 L 35-52 % Mean Corpuscular Volume 86 80-99 fL Mean Corpuscular Hemoglobin 30 25-34 pg Mean Corpuscular Hemoglobin Concent 35 32-36 g/dL Red Cell Distribution Width 13.0 10.0-14.5 % Platelet Count 276 130-400 10^3/uL Mean Platelet Volume 8.9 L 9.0-12.2 fL Immature Granulocyte % (Auto) 0 % Neutrophils (%) (Auto) 52 42-75 % Lymphocytes (%) (Auto) 37 12-44 % Monocytes (%) (Auto) 5 0-12 % Eosinophils (%) (Auto) 5 0-10 % Basophils (%) (Auto) 1 0-10 % Neutrophils # (Auto) 4.2 1.8-7.8 10^3/uL Lymphocytes # (Auto) 2.9 1.0-4.0 10^3/uL Monocytes # (Auto) 0.4 0.0-1.0 10^3/uL Eosinophils # (Auto) 0.4 H 0.0-0.3 10^3/uL Basophils # (Auto) 0.0 0.0-0.1 10^3/uL Immature Granulocyte # (Auto) 0.0 0.0-0.1 10^3/uL Sodium Level 140 135-145 MMOL/L Potassium Level 3.7 3.6-5.0 MMOL/L Chloride Level 102 98-107 MMOL/L Carbon Dioxide Level 26 21-32 MMOL/L Anion Gap 12 5-14 MMOL/L Blood Urea Nitrogen 8 7-18 MG/DL Creatinine 0.75 0.60-1.30 MG/DL Estimat Glomerular Filtration Rate 112 BUN/Creatinine Ratio 11 Glucose Level 102 70-105 MG/DL Calcium Level 9.5 8.5-10.1 MG/DL Corrected Calcium 8.5-10.1 MG/DL Total Bilirubin 0.4 0.1-1.0 MG/DL Aspartate Amino Transf (AST/SGOT) 17 5-34 U/L Alanine Aminotransferase (ALT/SGPT) 9 0-55 U/L Alkaline Phosphatase 76 40-136 U/L Total Protein 7.1 6.4-8.2 GM/DL Albumin 4.8 H 3.2-4.5 GM/DL My Orders Orders - BEULAH LYLE DO Cbc With Automated Diff (12/05/21 15:08) Comprehensive Metabolic Panel (12/05/21 15:08) Hcg,Qualitative Urine (12/05/21 15:08) Morphine Injection (Morphine Injection (12/05/21 15:08) Ondansetron Injection (Zofran Injectio (12/05/21 15:15) Ct Abdomen/Pelvis W (12/05/21 15:08) Iohexol Injection (Omnipaque 350 Mg/Ml 1 (12/05/21 15:15) Received Contrast (Hold Metformin- Contr (12/05/21 15:15) Sodium Chloride Flush (Catheter Flush Sy (12/05/21 15:15) Ns (Ivpb) (Sodium Chloride 0.9% Ivpb Bag (12/05/21 15:15) Medications Given in ED Current Medications Medications Dose Ordered Sig/Vanessa Route Start Time Stop Time Status Last Admin Dose Admin Iohexol 100 ml ONCE ONCE IV 12/05/21 15:15 12/05/21 15:18 DC 12/05/21 16:22 75 ML Ondansetron HCl 4 mg ONCE ONCE IVP 12/05/21 15:15 12/05/21 15:16 DC 12/05/21 15:15 4 MG Sodium Chloride 10 ml NEEDED PRN IV 12/05/21 15:15 12/05/21 16:22 10 ML Sodium Chloride 100 ml ONCE ONCE IV 12/05/21 15:15 12/05/21 15:18 DC 12/05/21 16:22 100 ML Vital Signs/I&O 12/05/21 15:01 Temp 36.5 Pulse 87 Resp 16 B/P (MAP) 110/51 (70) Pulse Ox 99 O2 Delivery Room Air Blood Pressure Mean: 70 Departure Communication (Admissions) CT abdomen pelvis: Redemonstration of nonacute liver laceration without active hemorrhage per radiology report Right upper quadrant pain without evidence of reinjury of liver. Pain addressed and controlled. CT lab reassuring. Recommendations are supportive care with PCP follow-up as needed. Return precautions reviewed. Patient verbalizes understanding agreement with discharge instructions prior to departure. Impression Primary Impression: RUQ pain Disposition: 01 HOME, SELF-CARE Condition: Stable Departure-Patient Inst. Decision time for Depature: 17:06 Referrals: CHIDI NORTON APRN (PCP) Primary Care Physician [facility] (Family) Primary Care Physician Patient Instructions: Abdominal Pain, Adult ED Add. Discharge Instructions: You were evaluated in the emergency department for right upper quadrant pain. CT lab and imaging were performed and did not show evidence of reinjury of liver. Please avoid heavy lifting and bending for the next 2 to 3 days and take Tylenol or ibuprofen for pain and follow-up with your PCP as needed. Return to the ED if new or worsening symptoms. All discharge instructions reviewed with patient and/or family. Voiced understanding. BEULAH LYLE DO Dec 05, 2021 16:42
[2021-12-05 17:16] VITALS: BP 92/45
== END 2021-12-05 17:22 | disposition home or self-care (01) ==
LOC: EDUNIT# 14:50 → ER FS 14:53
DX: R10.11 Right upper quadrant pain (principal); Z72.0 Tobacco use; Z28.310 Unvaccinated for COVID-19; X50.0XXA Overexertion from strenuous movement or load, initial encounter; Y93.F2 Activity, caregiving, lifting
CPT/HCPCS: 74177; 80053; Q9967

== ENCOUNTER 2022-03-31 12:55 | Emergency (ER) | payer MEDICAID, OTHER ==
[2022-03-31] MEDS ORDERED: TETANUS,DIPTH,PERTUSS P/F (BOOSTRIX) 0.5 ML VIAL IM ONE (13:00)
[2022-03-31] MEDS ORDERED: ACHD5005 PO (13:50)
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
[2022-03-31 14:07] VITALS: BP 111/58
== END 2022-03-31 14:08 | disposition home or self-care (01) ==
LOC: EDUNIT# 12:55 → ER FS 12:56
DX: T22.211A Burn of second degree of right forearm, initial encounter (principal); T23.101A Burn of first degree of right hand, unspecified site, initial encounter; F17.210 Nicotine dependence, cigarettes, uncomplicated; Z23 Encounter for immunization; Z28.310 Unvaccinated for COVID-19; X08.8XXA Exposure to other specified smoke, fire and flames, initial encounter
CPT/HCPCS: 90715; 99284

== ENCOUNTER 2022-12-14 15:47 | Emergency (ER) | payer MEDICAID ==
[~2022-12-14] VITALS: Ht 157.5 cm; Wt 47.2 kg
[~2022-12-14 15:47] MED LIST changes: +POLY10DR20 OP; -POLY10DR31 OP
--- NOTE | 2022-12-14 15:50 | ED General ---
General Stated Complaint: LOW HEARTRATE History of Present Illness Date Seen by Provider: Dec 14, 2022 Time Seen by Provider: 15:50 Initial Comments 27-year-old female presents because she is concerned that her heart rate is too low. Patient reports that she is really fatigued today when I checked her heart rate was in the 60s. She feels that that is low for her. She does have some generalized malaise no chest pain. She does report she had a little bit of nausea and is extremely fatigued today. She does work out in the public. Allergies and Home Medications Allergies Coded Allergies: No Known Drug Allergies (Unverified , 11/17/17) Patient Home Medication List Home Medication List Reviewed: Yes Duloxetine HCl (Duloxetine HCl) 60 Mg Capsule.dr, 60 MG PO DAILY, (Reported) Entered as Reported by: Minerva Edward on 10/25/212122 Hydrocodone Bit/Acetaminophen (HYDROcodone/APAP 10/325 TABLET) 1 Ea Tab, 1 EA PO Q6H PRN for PAIN-MODERATE (5-7) Prescribed by: ANKITA GATICA on 10/27/21 1400 Hydrocodone/Acetaminophen (Hydrocodone-Acetamin 5-325 mg) 5 Mg-325 Mg Tablet, 1 TAB PO Q6H PRN for PAIN-SEVERE (8-10) Prescribed by: MARIA DE JESUS DIAZ on 03/31/22 1351 Mirtazapine (Mirtazapine) 7.5 Mg Tablet, 7.5 MG PO HS, (Reported) Entered as Reported by: Minerva Edward on 10/25/212122 Varenicline Tartrate (Varenicline Tartrate) 1 Mg Tablet, 1 MG PO BID, (Reported) Entered as Reported by: LONA RAPP on 10/27/21 1003 Review of Systems Review of Systems Constitutional: see HPI, malaise EENTM: no symptoms reported Respiratory: no symptoms reported Cardiovascular: see HPI Gastrointestinal: nausea Genitourinary: no symptoms reported Musculoskeletal: no symptoms reported Skin: no symptoms reported Past Stywutr-Uexrck-Zzbnnp Hx Immunizations Up To Date Tetanus Booster (TDap): Less than 5yrs Seasonal Allergies Seasonal Allergies: Yes Past Medical History Surgery/Hospitalization HX: Seizures; PTSD; Asthma; Anemia; Anxiety; Depression Surgeries: Yes Section, Tubal Ligation Respiratory: Yes Asthma Cardiac: No Neurological: Yes (non-epileptic seizures) Seizure Disorder Reproductive Disorders: No Female Reproductive Disorders: Denies 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 0.0oz. [id number]; 17.00 BMI Method:Stated General Appearance: No Apparent Distress, WD/WN Neck: Non Tender, Supple Respiratory: Lungs Clear, Normal Breath Sounds Cardiovascular: Regular Rate, Rhythm, No Edema Gastrointestinal: Non Tender, Soft Extremity: Normal Capillary Refill Neurologic/Psychiatric: Alert, Oriented x3, No Motor/Sensory Deficits Skin: Normal Color, Warm/Dry Progress/Results/Core Measures Suspected Sepsis SIRS Temperature: Pulse: Respiratory Rate: Laboratory Tests 12/14/22 16:02: White Blood Count 7.6 Blood Pressure / Mean: Laboratory Tests 12/14/22 16:02: Creatinine 0.75, Platelet Count 250, Total Bilirubin 0.3 Results/Orders Lab Results Laboratory Tests Test 12/14/22 16:02 12/14/22 16:04 Range/Units White Blood Count 7.6 4.3-11.0 10^3/uL Red Blood Count 4.17 3.80-5.11 10^6/uL Hemoglobin 12.3 11.5-16.0 g/dL Hematocrit 38 35-52 % Mean Corpuscular Volume 91 80-99 fL Mean Corpuscular Hemoglobin 30 25-34 pg Mean Corpuscular Hemoglobin Concent 33 32-36 g/dL Red Cell Distribution Width 12.8 10.0-14.5 % Platelet Count 250 130-400 10^3/uL Mean Platelet Volume 9.0 9.0-12.2 fL Immature Granulocyte % (Auto) 0 % Neutrophils (%) (Auto) 62 42-75 % Lymphocytes (%) (Auto) 31 12-44 % Monocytes (%) (Auto) 5 0-12 % Eosinophils (%) (Auto) 2 0-10 % Basophils (%) (Auto) 1 0-10 % Neutrophils # (Auto) 4.7 1.8-7.8 10^3/uL Lymphocytes # (Auto) 2.3 1.0-4.0 10^3/uL Monocytes # (Auto) 0.3 0.0-1.0 10^3/uL Eosinophils # (Auto) 0.2 0.0-0.3 10^3/uL Basophils # (Auto) 0.1 0.0-0.1 10^3/uL Immature Granulocyte # (Auto) 0.0 0.0-0.1 10^3/uL Sodium Level 138 135-145 MMOL/L Potassium Level 3.9 3.6-5.0 MMOL/L Chloride Level 101 98-107 MMOL/L Carbon Dioxide Level 28 21-32 MMOL/L Anion Gap 9 5-14 MMOL/L Blood Urea Nitrogen 4 L 7-18 MG/DL Creatinine 0.75 0.60-1.30 MG/DL Estimat Glomerular Filtration Rate 111 BUN/Creatinine Ratio 5 Glucose Level 125 H 70-105 MG/DL Calcium Level 9.3 8.5-10.1 MG/DL Corrected Calcium 8.9 8.5-10.1 MG/DL Total Bilirubin 0.3 0.1-1.0 MG/DL Aspartate Amino Transf (AST/SGOT) 13 5-34 U/L Alanine Aminotransferase (ALT/SGPT) 8 0-55 U/L Alkaline Phosphatase 57 40-136 U/L Troponin I < 0.30 <0.30 NG/ML C-Reactive Protein < 0.30 <0.50 MG/DL Total Protein 6.9 6.4-8.2 GM/DL Albumin 4.5 3.2-4.5 GM/DL Urine Color YELLOW Urine Clarity SL CLOUDY Urine pH 7.5 5-9 Urine Specific [place] 1.020 1.016-1.022 Urine Protein NEGATIVE NEGATIVE Urine Glucose (UA) NEGATIVE NEGATIVE Urine Ketones NEGATIVE NEGATIVE Urine Nitrite NEGATIVE NEGATIVE Urine Bilirubin NEGATIVE NEGATIVE Urine Urobilinogen 1.0 < = 1.0 MG/DL Urine Leukocyte Esterase NEGATIVE NEGATIVE Urine RBC (Auto) NEGATIVE NEGATIVE Urine RBC NONE /HPF Urine WBC NONE /HPF Urine Squamous Epithelial Cells 10-25 H /HPF Urine Crystals NONE /LPF Urine Bacteria NEGATIVE /HPF Urine Casts NONE /LPF Urine Mucus SMALL H /LPF Urine Culture Indicated NO My Orders Orders - DIMITRY COLBY DO Cbc And Automated Diff (12/14/22 15:55) Comprehensive Metabolic Panel (12/14/22 15:55) Ua Culture If Indicated (12/14/22 15:55) Influenza A And B By Pcr (12/14/22 15:55) Crp Fs (12/14/22 15:55) Covid 19 Inhouse Test (12/14/22 15:55) Troponin I Fs (12/14/22 15:55) Ekg Tracing (12/14/22 15:58) Monitor-Rhythm Ecg Trace Only (12/14/22 15:58) Vital Signs/I&O 12/14/22 15:48 Temp 37.1 Pulse 83 Resp 16 B/P (MAP) 107/64 (78) O2 Delivery Room Air Capillary Refill : Progress Note : Progress Note Patient's diagnostic studies ordered reviewed and interpreted by me. Patient's labs showed no acute significant findings. Patient's EKG showed heart rate 52, GA was slightly long at 236, QRS 73, no acute ST changes or elevation. Patient likely viral syndrome. She is stable and discharged Departure Impression Primary Impression: Acute viral syndrome Disposition: 01 HOME, SELF-CARE Condition: Stable Departure-Patient Inst. Referrals: CHIDI NORTON APRN (PCP) Primary Care Physician [facility] (Family) Primary Care Physician Patient Instructions: Viral Syndrome (DC) Add. Discharge Instructions: Tylenol ibuprofen as needed for body aches, fevers or chills. Get plenty of rest. Work/School Note: Work Release Form Date Seen in the Emergency Department: Dec 14, 2022 Return to Work: Dec 17, 2022 DIMITRY COLBY DO Dec 14, 2022 15:50
[2022-12-14 16:08] LABS: BASOPHILS # (AUTO) 0.1 10^3/uL (0.0-0.1); BASOPHILS % (AUTO) 1 % (0-10); EOSINOPHILS # (AUTO) 0.2 10^3/uL (0.0-0.3); EOSINOPHILS % (AUTO) 2 % (0-10); HEMATOCRIT 38 % (35-52); HEMOGLOBIN 12.3 g/dL (11.5-16.0); LYMPHOCYTES # (AUTO) 2.3 10^3/uL (1.0-4.0); LYMPHOCYTES % (AUTO) 31 % (12-44); MEAN CORPUSCULAR HEMOGLOBIN 30 pg (25-34); MEAN CORPUSCULAR HGB CONC 33 g/dL (32-36); MEAN CORPUSCULAR VOLUME 91 fL (80-99); MONOCYTES # (AUTO) 0.3 10^3/uL (0.0-1.0); MONOCYTES % (AUTO) 5 % (0-12); NEUTROPHILS # (AUTO) 4.7 10^3/uL (1.8-7.8); NEUTROPHILS % (AUTO) 62 % (42-75); PLATELET COUNT 250 10^3/uL (130-400); WHITE BLOOD COUNT 7.6 10^3/uL (4.3-11.0)
[2022-12-14 16:10] LABS: BILIRUBIN,URINE NEGATIVE (NEGATIVE); CLARITY,URINE SL CLOUDY; COLOR,URINE YELLOW; GLUCOSE, URINE (UA) NEGATIVE (NEGATIVE); KETONES,URINE NEGATIVE (NEGATIVE); LEUKOCYTE ESTERASE ,URINE NEGATIVE (NEGATIVE); NITRITE,URINE NEGATIVE (NEGATIVE); PH,URINE 7.5 (5-9); PROTEIN,URINE NEGATIVE (NEGATIVE)
[2022-12-14 16:16] LABS: BACTERIA,URINE NEGATIVE /HPF
[2022-12-14 16:30] LABS: SODIUM 138 MMOL/L (135-145)
[2022-12-14 16:31] LABS: ALANINE AMINOTRANSFERASE 8 U/L (0-55); ALBUMIN 4.5 GM/DL (3.2-4.5); ALKALINE PHOSPHATASE 57 U/L (40-136); BILIRUBIN,TOTAL 0.3 MG/DL (0.1-1.0); BUN/CREATININE RATIO 5; CALCIUM 9.3 MG/DL (8.5-10.1); CARBON DIOXIDE 28 MMOL/L (21-32); CHLORIDE 101 MMOL/L (98-107); CREATININE SERUM 0.75 MG/DL (0.60-1.30); GFR ESTIMATED 111; GLUCOSE 125 MG/DL (70-105); POTASSIUM 3.9 MMOL/L (3.6-5.0); TOTAL PROTEIN 6.9 GM/DL (6.4-8.2)
[2022-12-14 16:55] VITALS: BP 133/86
== END 2022-12-14 16:55 | disposition home or self-care (01) ==
LOC: EDUNIT# 15:47 → ER FS 15:48
DX: B34.9 Viral infection, unspecified (principal); R53.83 Other fatigue; R11.0 Nausea; R00.1 Bradycardia, unspecified
CPT/HCPCS: 36415; 80053; 81000; 84484; 85025; 86141; 93005; 93041